=== PATIENT | female | born 1990 | race American Indian/Alaskan Native ===

== ENCOUNTER 2018-09-15 18:33 | Emergency (ER) | payer OTHER ==
[~2018-09-15] VITALS: Ht 177.8 cm; Wt 88.9 kg
--- OUTSIDE RECORDS SUMMARY | ~2018-09-15 | XMS | Clinical Summary ---
Demographics + + + | Address | [address] | | | [place] [address] | + + + | Home Phone | | + + + | Preferred Language | Unknown | + + + | Marital Status | Single | + + + | Roman Catholic Affiliation | 1041 | + + + | Race | Unknown | + + + | Ethnic Group | Unknown | + + + Author + + + | Author | [facility] | | | and [place] | + + + | Organization | [facility] | | | and [place] | + + + | Address | Unknown | + + + | Phone | Unavailable | + + + Support + + + + + | Name | Relationship | Address | Phone | + + + + + | Vinay,Jennifer | ECON | "[place]" | | | | | Unknown | | + + + + + | GarthMichaeljames | ECON | [address] | | | | | [place], | | | | | [place] [address] | | + + + + + Care Team Providers + +------+ + | Care Senior Pharmacy Technician Name | Role | Phone | + +------+ + PP | Unavailable | + +------+ + Allergies Not on File Medications Not on file Active Problems Not on file Social History + +-------+ +--------+------+ | Tobacco [...] recent travel history available. | + + Plan of Treatment + + + + + | Health Maintenance | Due Date | Last Done | Comments | + + + + + | Vaccine: | | | | | Dtap/Tdap/Td (1 - | 9 | | | | Tdap) | | | | + + + + + | Cervical Cancer | | | | | Screening (Pap) | 1 | | | + + + + + | Vaccine: Influenza | | | | | (Season Ended) | 9 | | | + + [...] | [employer] | MODA | [id number] | 07/21/19 | [phone] | | Medica | | MEDICAID HMO | HEALTH | | 18-Pre | 1 | | id | | | MDCD | | sent | | | | | | HMO [place] | | | | | | + +--------+ +--------+ +---------+--------+ | [facility] | IHS | [id number] | | | | Indemn | | [...] Person | Self | [birth year] | | [address] | | | al/Fam | | 1990 | [phone] | [place] [address] | | | dejan | | | 5 (Home) | | + +--------+ +--------+ + +
--- OUTSIDE RECORDS SUMMARY | ~2018-09-15 | XMS | Clinical Summary ---
Demographics + + + | Address | [address] | | | [place] [address] | + + + | Home Phone | | + + + | Preferred Language | Unknown | + + + | Marital Status | Single | + + + | Jew Affiliation | 1041 | + + + | Race | Unknown | + + + | Ethnic Group | Unknown | + + + Author + + + | Author | [facility] | | | and [place] | + + + | Organization | [facility] | | | and [place] [...] + + | GarthMichaeljames | ECON | [address] | | | | | [place], | | | | | [place] [address] | | + + + + + Care Team Providers + +------+ + | Care Data Base Design Analyst Name | Role | Phone | [...] | [employer] | MODA | [id number] | 07/21/19 | [phone] | | Medica | | MEDICAID HMO | HEALTH | | 18-Pre | 1 | | id | | | MDCD | | sent | | | | | | [place]MO [place] | | | | | | + +--------+ +--------+ +---------+--------+ | [facility] | IHS | [id number] | | | | Indemn | | [...] | | al/Fam | | 1990 | [phone] | [place] [address] | | | dejan | | | 5 (Home) | | + +--------+ +--------+ + +
--- OUTSIDE RECORDS SUMMARY | ~2018-09-15 | XMS | Clinical Summary ---
Demographics + + + | Address | [address] | | | [place] [address] | + + + | Home Phone | | + + + | Preferred Language | Unknown | + + + | Marital Status | Single | + + + | Anglican Affiliation | Unknown | + + + [...] Phone | + + +---------+ + | MANUEL WATSON | ECON | Unknown | | + + +---------+ + Care Team Providers + +------+ + | Care Movie Actor Name | Role | Phone | + +------+ + PP | Unavailable | + +------+ + Source Comments CHAYA is fully live on both [facility] and [facility] InPatient.[facility] Allergies No Known Allergies Current Medications Not on file Active Problems Not [...] on file | | + + + Plan of Treatment + + + + + | Health Maintenance | Due Date | Last Done | Comments | + + + + + | Influenza (Flu) | 09/01/201 | | | | vaccination (#1) | 8 | | | + + + + + Results Not on filefrom Last 3 Months"
--- OUTSIDE RECORDS SUMMARY | ~2018-09-15 | XMS | Clinical Summary ---
Demographics + + + | Address | [address] | | | [place] [address] | + + + | Home Phone | | + + + | Preferred Language | Unknown | + + + | Marital Status | Single | + + + | Shinto Affiliation | Unknown | + + + | Race | Unknown | + + + | Ethnic Group | Unknown | + + + Author + + + | Author | [email or web address] | + + + | Organization | [email or web address] | + + + | Address | Unknown | + + + | Phone | Unavailable | + + + Support + + + + + | Name | Relationship | Address | Phone | + + + + + | Jennifer Mclean | ECON | "[place]" | | | | | Unknown | | + + + + + | Starla Liang | ECON | [address] | | | | | [address], | | | | | [place] [address] | | + + + + + | Davin Vasquez | ECON | [address] | | | | | [address], | | | | | [place] [address] | | + + + + + Care Team Providers + +------+ + | Care Metal Fabricator Apprentice Name | Role | Phone | + +------+ + | Afua Marinelli PA-C | PP | | + +------+ + Allergies + [...] | | | | 15 | at [place] | | | | | | today (10/06/14) with | | | | | | no reaction. | + + + + + + Current Medications + + +-------+---------+------+------+-------+ | Prescription | Sig. | Disp. | Refills | Star | End | Statu | | | | | | t | Date | s | | | | | | Date | | | + + +-------+---------+------+------+-------+ | ibuprofen (MOTRIN) | Take 600 mg by mouth | | | 08/0 | | Activ | | 600 MG tablet | as needed. | | | 08/08 | | e | | | | | | 18 | | | + + +-------+---------+------+------+-------+ | Cholecalciferol | Take 1 tablet by | | | | | Activ | | (VITAMIN D PO) | mouth daily. | | | | | e | + + +-------+---------+------+------+-------+ Active Problems + + + | Problem | Noted Date | + + + | PFO (patent foramen ovale) | 12/26/2017 | + + + | Acute CVA (cerebrovascular accident) | 10/07/2014 | + + + | Leukocytosis, unspecified | 10/06/2014 | + + + | IV drug user | 10/06/2014 | + + + | Left flank pain | 10/06/2014 | + + + Resolved Problems + + + + | Problem | Noted | Resolved | | | Date | Date | + + + + | Fever, unspecified | 10/07/19 | | | | 15 | 5 | + + + + Immunizations + + + + | Name | Dates Previously Given | Next Due | + + + + | Pneumococcal | 10/07/2014 | | | Polysaccharide | | | | 23-valent | | | + + + + [...] | | + + +------+ + | Diabetes type II | Maternal | | | | | [...] | | + +---+---+---+ + + | Tobacco Cessation: Ready to Quit: No; Counseling Given: Yes | | Comments: got patches and gum to try to stop | + + + + +---------+ + | Alcohol Use | Drinks/We | oz/Week | Comments | | | ek | | | + + +---------+ + | No | | | | + + +---------+ + + + + | Sex Assigned at | Date Recorded | | | | + + + | Not on file | | + + + Last Filed Vital Signs + + + + | Vital Sign | Reading | Time Taken | + + + + | Blood Pressure | 108/68 | 03/01/2018 8:22 AM PDT | + + + + | Pulse | 73 | 03/01/2018 8:22 AM PDT | + + + + | Temperature | 36.8 C (98.3 F) | 10/10/2014 8:06 AM PDT | + + + + | Respiratory Rate | 16 | 10/10/2014 8:06 AM PDT | + + + + | Oxygen Saturation | 99% | 03/01/2018 8:22 AM PDT | + + + + | Inhaled Oxygen | - | - | | Concentration | | | + + + + | Weight | 85.3 kg (188 lb) | 03/01/2018 8:22 AM PDT | + + + + | Height | 177.8 cm (5' 10") | 03/01/2018 8:22 AM PDT | + + + + | Body Mass Index | 26.98 | 03/01/2018 8:22 AM PDT | + + + + Plan of Treatment +--------+---------+ + + + | Date | Type | Specialty | Care Team | Description | +--------+---------+ + + + | 01/16/ | Office | | Rufina Ulrich, | | | 2019 | Visit | | MD Fermin Rodgers | | | | | | Dr [address], | | | | | | [place] [address] | | | | | | [phone] | | | | | | | | +--------+---------+ + + + + + + + + | Health [...] | | | | (optimal intensity) | 7 | | | + + + + + | Vaccine: Influenza | | | | | (Season Ended) | 9 | | | + + + + + | Vaccine: | Completed | 10/07/2014 | | | Pneumococcal 19-64 | | | | | (PPSV23 only) Medium | | | | | Risk | | | | + + + + + Results Not on filefrom Last 3 Months Insurance + +--------+ +------+-------+ + | Payer | Benefi | Subscriber | Type | Phone | Address | | | t Plan | ID | | | | | | / | | | | | | | Group | | | | | + +--------+ +------+-------+ + | [facility] | YELLOW | [id number] | | | | | PLANS | [place] | | | | | + +--------+ +------+-------+ + | MEDICAID | [place] | [id number] | | | [address] | | | [place] | | | | [place] | | | [place] | | | | [phone] | | | LINE ERECTOR APPRENTICE | | | | | + +--------+ +------+-------+ + + +--------+ +--------+ + + | Guarantor Name | Accoun | Relation to | Date | Phone | Billing Address | | | t Type | Patient | of | | | | | | | | | | + +--------+ +--------+ + + | KAT SPENCER | Person | Self | [birth year] | Home: | [address] | | | al/Fam | | 1989 | [phone] | [place] [address] | | | [place] | | | [address] | | + +--------+ +--------+ + +
--- OUTSIDE RECORDS SUMMARY | ~2018-09-15 | XMS | Clinical Summary ---
Demographics + + + | Address | [address] | | | [place] [address] | + + + | Home Phone | | + + + | Preferred Language | Unknown | + + + | Marital Status | Single | + + + | Bahai Affiliation | Unknown | + + + [...] Team Providers + +------+ + | Care Social Director Name | Role | Phone | + +------+ + PP | Unavailable | + +------+ + Source Comments CHAYA is fully live on both [facility] and [facility]Patient.[facility] Allergies No Known Allergies Current Medications Not [...]
--- OUTSIDE RECORDS SUMMARY | ~2018-09-15 | XMS | Clinical Summary ---
Demographics + + + | Address | [address] | | | [place] [address] | + + + | Home Phone | | + + + | Preferred Language | Unknown | + + + | Marital Status | Single | + + + | Hinduism Affiliation | Unknown | + + + | Race | Unknown | + + + | Ethnic Group | Unknown | + + + Author + + + | Author | [facility] | + + + | Organization | [facility] | + + + | Address [...] + | Starla Liang | ECON | [address] | | | | | [address], | | | | | [place] [address] | | + + + + + | Davin Vasquez | ECON | [address] | | | | | [address], | | | | | [place] [address] | | + + + + + Care Team Providers + +------+ + | Care Gymnastics Coach Name | Role | Phone | + [...] | | | | 15 | at [place] | | | | | | today [...] | | | | | | [place] [address] | | | | | | [phone] | | | | | | | [...] | | + +--------+ +------+-------+ + | [facility] | YELLOW | [id number] | | | | | PLANS | [place] | | | | | + +--------+ +------+-------+ + | MEDICAID | [place] | [id number] | | | [address] | | | N | | | | [place] | | | [place] | | | | [phone] | | | FIREARMS MODEL MAKER | | | | | + +--------+ [...] | | al/Fam | | 1989 | [phone] | [place] [address] | | | [place] | | | [address] | | + +--------+ +--------+ + +
[~2018-09-15 18:33] MED LIST: BACTRIM DS TAB1 EACH PO; CAFFEINE PO; CIPRO500 MG PO; DIFLUCAN150 MG PO; IBUPROFEN800 MG PO; NORCO 5-325 TA1 EACH PO; PEPTO-BISM262 MG/15 PO; VITAMIN D5000 UNI1 PO; ZOFRAN4 MG PO
== END 2018-09-15 20:38 | disposition home or self-care (01) ==
LOC: ED 18:33
DX: Z34.01 Encounter for supervision of normal first pregnancy, first trimester (principal); Z86.73 Personal history of transient ischemic attack (TIA), and cerebral infarction without residual deficits; Z87.891 Personal history of nicotine dependence; Z88.0 Allergy status to penicillin; Z88.8 Allergy status to other drugs, medicaments and biological substances
CPT/HCPCS: 81001; 84702; 84703; 85025; 99284

== ENCOUNTER 2019-10-25 07:37 | Emergency (ER) | payer OTHER ==
[~2019-10-25] VITALS: Ht 177.8 cm; Wt 88.5 kg
--- OUTSIDE RECORDS SUMMARY | ~2019-10-25 | XMS | Clinical Summary ---
Demographics + + + | Address | [address] | | | [place] [address] | + + + | Home Phone | | + + + | Preferred Language | Unknown | + + + | Marital Status | Single | + + + | Pentecostalism Affiliation | 1041 | + + + | Race | Unknown | + + + | Ethnic Group | Unknown | + + + Author + + + | Author | [facility] | | | and [place] | + + + | Organization | [facility] | | | and [place] | + + + | Address | Unknown | + + + | Phone | Unavailable | + + + Support + + +---------+ + | Name | Relationship | Address | Phone | + + +---------+ + | Jennifer Mclean | ECON | "[place]" | | | | | Unknown | | + + +---------+ + Care Team Providers + +------+ + | Care Entry Level Project Coordinator Name | Role | Phone | + +------+ + | Afua Marinelli PA-C | PCP | | + +------+ + Allergies + + + + + + | Active Allergy | Reactions | Severity | Noted | Comments | | | | | Date | | + + + + + + | Methylergonovine | Hives | High | 10/07/19 | | | Maleate | | | 15 | | + + + + + + | Penicillins | Hives | High | 10/07/19 | Received Rocephin | | | | | 15 | at [place] | | | | | | today (10/06/14) with | | | | | | no reaction. | + + + + + + Medications + + + +---------+------+------+-------+ | Medication | Sig | Dispensed | Refills | Star | End | Statu | | | | | | t | Date | s | | | | | | Date | | | + + + +---------+------+------+-------+ | Multiple | Take by mouth | | 0 | | | Activ | | Vitamins-Minerals | Daily. | | | | | e | | (MULTIVITAMIN ADULT) | | | | | | | | TABS | | | | | | | + + + +---------+------+------+-------+ | Probiotic Product | Take by mouth | | 0 | | | Activ | | (PROBIOTIC-10) CHEW | Daily. | | | | | e | + + + +---------+------+------+-------+ | aspirin 81 mg | Take 1 tablet by | | 0 | 12/21 | | Activ | | chewable tablet | mouth Daily. | | | 01/08 | | e | | | | | | 19 | | | + + + +---------+------+------+-------+ Active Problems + + + | Problem | Noted Date | + + + | PFO (patent foramen ovale) | 12/26/2017 | + + + | Acute CVA (cerebrovascular accident) | 10/07/2014 | + + + Resolved Problems + + + + | Problem | Noted | Resolved | | | Date | Date | + + + + | Leukocytosis, unspecified | 10/07/19 | | | | 15 | 9 | + + + + | IV drug user | 10/07/19 | | | | 15 | 9 | + + + + | Left flank pain | 10/07/19 | | | | 15 | 9 | + + + + Immunizations + + + + | Name | Administration Dates | Next Due | + + + + | PNEUMOCOCCAL | 10/07/2014 | | | POLYSACCHARIDE | | | | 23-VALENT (PPSV23) | | | + + + + Family History + + +------+ + | Medical History | Relation | Name | Comments | + + +------+ + | High cholesterol | Maternal | | | | | Grandfath | | | | | er | | | + + +------+ + | Kidney disease | Maternal | | | | | Grandfath | | | | | er | | | + + +------+ + | Stroke | Maternal | | | | | Grandfath | | | | | er | | | + + +------+ + | Diabetes, NIDDM | Maternal | | | | | Grandmoth | | | | | er | | | + + +------+ + | Heart disease | Maternal | | | | | Grandmoth | | | | | er | | | + + +------+ + | Stroke | Maternal | | | | | Grandmoth | | | | | er | | | + + +------+ + | Alcohol abuse | Mother | | | + + +------+ + + +------+--------+ + | Relation | Name | Status | Comments | + +------+--------+ + | Maternal Grandfather | | | | + +------+--------+ + | Maternal Grandfather | | | | + +------+--------+ + | Maternal Grandmother | | | | + +------+--------+ + | Maternal Grandmother | | | | + +------+--------+ + | Mother | | | | + +------+--------+ + | Mother | | | | + +------+--------+ + Social History + +-------+ +--------+------+ | Tobacco Use | Types | Packs/Day | Years | Date | | | | | Used | | + +-------+ +--------+------+ | Former Smoker | | 0.5 | | | + +-------+ +--------+------+ + +---+---+---+ | Smokeless Tobacco: | | | | | Never Used | | | | + +---+---+---+ + + | Comments: got patches and gum to try to stop | + + + + +---------+ + | Alcohol Use | Drinks/Week | oz/Week | Comments | + + +---------+ + | Not Currently | | | | + + +---------+ + + + + | Sex Assigned at | Date Recorded | | | | + + + | Not on file | | + + + + + + + | Job Start Date | Occupation | Industry | + + + + | Not on file | Not on file | Not on file | + + + + + + + + | Travel History | Travel Start | Travel End | + + + + + + | No recent travel history available. | + + Last Filed Vital Signs + + + + + | Vital Sign | Reading | Time Taken | Comments | + + + + + | Blood Pressure | 104/58 | 01/16/2019 1:42 PM | | | | | PDT | | + + + + + | Pulse | 66 | 01/16/2019 1:42 PM | | | | | PDT | | + + + + + | Temperature | - | - | | + + + + + | Respiratory Rate | - | - | | + + + + + | Oxygen Saturation | 98% | 01/16/2019 1:42 PM | | | | | PDT | | + + + + + | Inhaled Oxygen | - | - | | | Concentration | | | | + + + + + | Weight | 85.2 kg (187 lb 12.8 | 01/16/2019 1:42 PM | | | | oz) | PDT | | + + + + + | Height | 175.3 cm (5' 9") | 01/16/2019 1:42 PM | | | | | PDT | | + + + + + | Body Mass Index | 27.73 | 01/16/2019 1:42 PM | | | | | PDT | | + + + + + Plan of Treatment + + + + + | Health Maintenance | Due Date | Last Done | Comments | + + + + + | Vaccine: | | | | | Dtap/Tdap/Td (1 - | 1 | | | | Tdap) | | | | + + + + + | Cervical Cancer | | | | | Screening (Pap) | 1 | | | + + + + + | Statin Therapy | | | | | (optimal intensity) | 9 | | | + + + + + | Vaccine: Influenza | | | | | (Season Ended) | 0 | | | + + + + + Results Not on filefrom Last 3 Months Insurance + +--------+ +--------+ +---------+--------+ | Payer | Benefi | Subscriber | Effect | Phone | Address | Type | | | t Plan | ID | tasia | | | | | | / | | Dates | | | | | | Group | | | | | | + +--------+ +--------+ +---------+--------+ | [employer] | MODA | [id number] | 07/21/19 | [phone] | | Medica | | MEDICAID HMO | HEALTH | | 18-Pre | 1 | | id | | | MDCD | | sent | | | | | | [place] | | | | | | + +--------+ +--------+ +---------+--------+ | HEALTH | IHS | [id number] | | | | Indemn | | SERVICE | YELLOW | | 019-Pr | | | ity | | | [place] | | esent | | | | + +--------+ +--------+ +---------+--------+ | [employer] | [employer] | [id number] | 12/26/19 | [phone] | | Medica | | MEDICAID HMO | HEALTH | | 19-Pre | 1 | | id | | | MDCD | | sent | | | | | | [place] | | | | | | + +--------+ +--------+ +---------+--------+ | [employer] [facility] | IHS | [id number] | | | | Indemn | | SERVICE | YELLOW | | 015-Pr | | | ity | | | [place]WK | | esent | | | | + +--------+ +--------+ +---------+--------+ + +--------+ +--------+ + + | Guarantor Name | Accoun | Relation to | Date | Phone | Billing Address | | | t Type | Patient | of | | | | | | | | | | + +--------+ +--------+ + + | Chiquis Spencer | Person | Self [birth year] | | [address] | | | al/Fam | | 1989 | [phone] | [place] [address] | | | dejan | | | 5 (Home) | | + +--------+ +--------+ + + | Chiquis Spencer | Person | Self [birth year] | | [address] | | | al/Fam | | 1989 | [phone] | [place] [address] | | | dejan | | | 3 (Home) | | + +--------+ +--------+ + + Advance Directives + + + + + | Type | Date Recorded | Patient | Explanation | | | | Manager Nuclear | | + + + + + | Power of | | | | | Kitchen Designer | | | | + + + + + | Advance | | | | | Directive | | | | + + + + +
--- OUTSIDE RECORDS SUMMARY | ~2019-10-25 | XMS | Encounter Summary ---
Demographics + + + | Address | [address] | | | [place] [address] | + + + | Home Phone | | + + + | Preferred Language | Unknown | + + + | Marital Status | Single | + + + | Yarsani Affiliation | Unknown | + + + | Race | Unknown | + + + | Ethnic Group | Not or | + + + Author + + + | Organization | Unknown | + + + | Address | Unknown | + + + | Phone | Unavailable | + + + Support + + +---------+ + | Name | Relationship | Address | Phone | + + +---------+ + | Danielle Ewing | ECON | Unknown | | + + +---------+ + Care Team Providers + +------+ + | Care Timber Cutter Name | Role | Phone | + +------+ + PCP | Unavailable | + +------+ + Encounter Details +--------+ + + + + | Date | Type | Department | Care Team | Description | +--------+ + + + + | 04/10/ | Transcribed | | Dictation, Other | Transcribed | | 2001 | | | | | +--------+ + + + + Social History + +-------+ +--------+------+ | Tobacco Use | Types | Packs/Day | Years | Date | | | | | Used | | + +-------+ +--------+------+ | Never Assessed | | | | | + +-------+ +--------+------+ + + + | Sex Assigned at [...] recent travel history available. | + + documented as of this encounter Progress Notes Interface, Quality Analyst/Technical Writer In - 02/19/2006 1:01 AM [place] [facility] [place] [address] [place], [place] [address] or April 10, 2001 Panfilo Reece M.D. [address] [place] [address] RE: CHIQUIS SPENCER MR #: [id number] Dear Dr. Reece: It was our pleasure to visit with Chiquis and her aunt in clinic today. She is a 10-1/2-year-old female referred for evaluation of recurrent lower urinary tract infections. These apparently began 2 to 3 years ago. They were documented by voided specimens. However, the documentation we received failed to disclose any infections that have greater than 10 to power of 5 organisms. Her last culture from May of this past year demonstrated 10,000 E. coli. The patient does, however, experienced periodic episodes of dysuria, urgency and frequency, and enuresis. She has had some infrequent soiling of her underwear with stool. She apparently has had some infections in the past that the patient states were associated with blood in her urine and associated with lower abdominal pain and discomfort. The patient has undergone a prior ultrasound examination after urinary tract. There was attempts made at performing a voiding cystourethrogram. However, the catheter was unable to be inserted at the [facility]. Because of these difficulties, she was referred here for further evaluation. The patient's family history is a little bit difficult to determine because her parents are not here. Her review of systems is significant for prior history of pharyngitis, constipation, and a broken right arm. There is a questionable history of seizures. The patient underwent a physical examination today. The examination of her abdomen is unremarkable without masses. There is some tenderness. Examination of the perineum demonstrates early pubertal development. She does have labial adhesions. This would explain her difficulty with catheterization. After obtaining appropriate consent, these adhesions were lysed in our clinic. I reviewed the patient's voiding cystourethrogram and her ultrasound. These demonstrated normal anatomy of the bladder and upper urinary tract. However, the patient because of the labial adhesions retains urine in the vagina. This leaks out in the upright position. ASSESSMENT AND RECOMMENDATIONS: It appears that many of Chiquis's symptoms may be related to her labial adhesions. With the resolution of these can continue treatment with estrogen cream to this area twice a day for the next few weeks. I suspect many of these symptoms will fanny. Should she have continued documented urinary tract infections of greater than 3 in a 6-month period, then we will put her on prophylactic antibiotics. However, given the normalcy of her upper urinary tract and lower urinary tract, I doubt this will be necessary. Thank you to the patient's referral. Sincerely, Carl Fletcher M.D., F.A.A.P. / [id number] / [id number] / [id number] / [id number] signed by Interface, Quality Analyst/Technical Writer In at 02/19/2006 1:01 AM PDTdoc umented in this encounter Plan of Treatment Not on filedocumented as of this encounter Visit Diagnoses Not on filedocumented in this encounter"
--- OUTSIDE RECORDS SUMMARY | ~2019-10-25 | XMS | Clinical Summary ---
Demographics + + + | Address | [address] | | | [place] [address] | + + + | Home Phone | | + + + | Preferred Language | Unknown | + + + | Marital Status | Single | + + + | [employer]ar[employer] Affiliation | 1041 | + + + | Race | Unknown | + + + | Ethnic Group | Unknown | + + + Author + + + | Author | [facility] | | | and [place] | + + + | Organization | [facility] | | | [...] Team Providers + +------+ + | Care Outcomes Manager Name | Role | Phone | + [...] | | | | 15 | at [place] | | | | | | today [...] | [employer] | [employer] | [id number] | 07/21/19 | [phone] | | Medica | | MEDICAID HMO | HEALTH | | 18-Pre | 1 | | id | | | MDCD | | sent | | | | | | [place]MO [place] | | | | | | + +--------+ +--------+ +---------+--------+ | HEALTH | [employer] | [id number] | | | | Indemn | | SERVICE | YELLOW | | 019-Pr | | | ity | | | HAWK | | esent | | | | + +--------+ +--------+ +---------+--------+ | [employer] | [employer] | [id number] | 12/26/19 | [phone] | | Medica | | MEDICAID HMO | HEALTH | | 19-Pre | 1 | | id | | | MDCD | | sent | | | | | | [place] | | | | | | + +--------+ +--------+ +---------+--------+ | [facility] | [facility] | [id number] | | | | Indemn | | [...] | | al/Fam | | 1989 | [phone] | [place] [address] | | | dejan | | | 5 (Home) | | + +--------+ +--------+ + + | Chiquis Spencer | Person | Self | [birth year] | [address] | | | al/Fam | | 1989 | [phone] | [place] [address] | | | dejan | | | 3 (Home) | | + +--------+ +--------+ + + Advance Directives + + + + + | Type | Date Recorded | Patient | Explanation | | | | Extractor Loader And Unloader | | + + + + + | Power of | | | | | Coding Advisor | | | | + + + + + | Advance | | | | | Directive | | | | + + + + +
--- OUTSIDE RECORDS SUMMARY | ~2019-10-25 | XMS | Encounter Summary ---
Demographics + + + | Address | [address] | | | [place] [address] | + + + | Home Phone | | + + + | Preferred Language | Unknown | + + + | Marital Status | Single | + + + | [employer] Affiliation | 1041 | + + + | Race | Unknown | + + + | Ethnic Group | Unknown | + + + Author + + + | Author | [facility] | | | and [place] | + + + | Organization | [facility] | | | [...] Team Providers + +------+ + | Care Mangle Catcher Name | Role | Phone | + +------+ + PCP | Unavailable | + +------+ + Encounter Details +--------+ + + + + | Date | Type | Department | Care Team | Description | +--------+ + + + + | 10/06/ | Hospital | [facility] | Arnold Workman | Leukocytosis, | | 2015 - | Encounter | [facility] | Blaine Mckay MD [address] | | | | CL[address]ICAL DECISION | [address] | | | 10/10/ | | [address] | [place] [address] | | | 2015 | | [facility] [place] | [phone] | | | | | [id number] | | | | | | [phone] | | | +--------+ + + + [...] + + documented as of this encounter Discharge Summaries Marialuisa Brown MD - 10/10/2014 8:38 AM PDT Discharge Summaries by Marialuisa Brown MD at 10/10/14837 Author: Marialuisa Brown MD Service: (none) Author Type: Physician Filed: 10/10/14 1450 Date of Service: 10/10/14837 Status: Signed Business Applications Analyst: Marialuisa Brown MD (Physician) Related Notes: Original Note by Marialuisa Brown MD (Physician) filed at 10/10/14 0842 [facility] Service: Hospitalist Physician Discharge Summary Patient ID: Kat Spencer 1990 24 y.o. Admit date: 10/06/2014 Discharge date: 10/10/2014 Admitting Physician: Arnold Workman MD Discharge Physician: Marialuisa Brown MD Consultants: Treatment Team: Consulting Physician: Davin Purcell DO Consulting Physician: Kolby Scott MD Admitting Provider: Arnold Workman MD Primary Discharge Diagnoses: Leukocytosis with fever. Fevers resolved etiology unclear. Secondary Discharge Diagnoses: IV drug user Left flank pain Acute CVA (cerebrovascular accident) (HCC) HPI and Hospital Course: 24-year-old female with a history of benign seizures, history of drug abuse about 4 years a go, presented to [facility] with fever, leukocytosis, and tachycardia. There was a concern for endocarditis, and patient has a history of IV drug abuse and had a single relap se recently in the last 4 years, was transferred to [facility] and infec tious disease was consulted. Patient also had a fall and complained of CVA tenderness. HOSPITAL COURSE Patient admitted with fever and leukocytosis. She was started on Rocephin and vancomycin. I nfectious disease consult was obtained, and blood cultures remained negative. Patient also h ad stool for Clostridium difficile which was negative. Her leukocytosis gradually improved a nd her fever resolved. The patient also had complaint of transient right eye blindness. MRI was done, which showed acute CVA. Neurology consult was obtained. Hypercoagulable workup is pending. TSH and B12 w ithin normal limits. Dr. Scott evaluated the patient. She was started on aspirin and high-do se Lipitor for 3 days. Lipid profile was done, and she will be discharged home on aspirin an d Lipitor. Patient also had a 2D echocardiogram and subsequently BIJAN which showed a small PFO. She had Doppler ultrasound which showed no DVT. Patient had recurrent symptoms of left eye blindnes s, and a repeat MRI was done which did not show any acute CVA. She also had CTA of the neck which showed no carotid stenosis, however there was possibility of a thyroid nodule. I have not discussed this with the patient; she will follow up outpatient for that. Patient's fever has resolved. She continues to have mild leukocytosis and I discussed this with Dr. Robbins. She will follow up with infectious disease next week. Also she will follo w up with Dr. Scott as an outpatient. Patient continues to have some left flank pain, and CT scan showed possible pyelonephritis, also possibly related to her fall and contusion. She will be discharged home on Omnicef. The plan was discussed in detail with the patient. All questions have been answered. All da ta was reviewed with her. Past Medical History: Past Medical History Diagnosis Date Seizures as an IV drug user 10/06/2014 Left flank pain 10/06/2014 Past Surgical History Procedure Laterality Date Tonsillectomy Dilation and curettage of uterus Discharged Condition: Stable for discharge as stated above. Significant Diagnostic Studies: Cta Neck With Iv Contrast 10/09/2014 1. No evidence of carotid arterial stenosis. 2. Cannot exclude a left-sided thyroid nodule. Consider further evaluation with a dedicated thyroid ultrasound. Electronic ally signed by Otoniel Macdonald MD on 10/09/2014 4:34 PM Mra Head Without Contrast 10/08/2014 1. Normal MRA of the cerebral arterial system. No stenosis, occlusion, aneury sm or vasculitis noted. 2. Please note that the splenial branches of the posterior cerebral arteries would be too small to be resolved at 1.5 Jennie. Mri Brain Without Contrast 10/09/2014 Dramatic improvement of the appearance of the DWI signal changes previously see n in the splenium of the corpus callosum. This may represent pseudonormalization of signal intensity due to the decreased contribution by the ADC component on the DWI sequence which t ypically occurs 3 days post infarct. Alternatively, the relatively rapid loss of the DWI si gnal component may indicate that the area involved was acutely ischemic but not completely i nfarcted. This would explain why the FLAIR and T2 sequences do not show significant increas ed signal at this point. Differential diagnosis would include focal status epilepticus invo lving the splenium of the corpus callosum which has now resolved. Mri Brain Without Contrast 10/07/2014 Findings were reported to Dr. Davin Purcell by telephone at 10/07/2014 3:15 PM. C linically, isolated corpus callosum infarcts are associated with neuropsychiatric symptoms, mainly interhemispheric disconnection syndromes. Patients may experience gait disorders, a praxia, agraphia, tactile anomia, alien hand syndrome. Consultation with neurology is rec ommended. 10/07/2014 1. 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 This would be due to occlusion of the splenial branch of one of the posterior cerebral arteries. 2. No other infarcts are identified. 3. Otherwise normal MRI examination of the brain. El ectronically signed by Eh Vences DO on 10/07/2014 3:[address] Abdomen Pelvis With Iv Contrast 10/07/2014 1. Findings suggest pyelonephritis of the left kidney lower pole. Correlate cl inically. 2. Prominent periaortic lymph nodes, probably reactive. 3. Multi-follicular ovar ies and minimal free fluid in the pelvis. Ultrasound Carotid Bilateral 10/07/2014 1. There is 50-69% stenosis of the right internal carotid artery distally. 2. No other areas of hemodynamically significant stenosis. Ultrasound Lower Extremity Venous Doppler Bilateral 10/09/2014 1. No evidence of lower extremity deep vein thrombosis. Echo Cardiac Adult Complete 10/08/2014 1. Overall left ventricular systolic function is mildly impaired with, an EF be tween 45 - 50 %. 2. no obvious veg. Echo Bijan 10/08/2014 1. No vegetation visualized. 2. Evidence for very small patent foramen ovale pr esent by microcavitation study. Discharge Vitals: Filed Vitals: 10/09/14 1918 10/09/14 2324 10/10/14 0358 10/10/14 0806 BP: 134/82 120/58 114/62 114/62 Pulse: 68 82 80 93 Temp: 98.2 F (36.8 C) 97.6 F (36.4 C) 98.2 F (36.8 C) 98.3 F (36.8 C) TempSrc: Oral Oral Oral Oral Resp: 18 16 16 16 Height: Weight: 81.4 kg (179 lb 7.3 oz) SpO2: 98% 98% 96% 97% Discharge Exam: General: Well nourished. Psych: Alert and oriented x 3. Calm, cooperative. Cardiovascular: Regular rate and rhythm, no murmurs, no thrills. Normal PMI. Respiratory: Clear to auscultation, no wheezing or crackles, breathing non labored. Gastrointestinal: Soft, tenderness present in the suprapubic area, non-distended, positive bowel sounds. No HSM. Musculoskeletal: No edema in bilateral lower extremities. No joint swelling. Minimal left flank tenderness present Skin: Warm and dry, no rashes. Neck: No JVD, Trachea midline. Neurological: Non focal. Motor grossly intact. LABS: Recent Labs Lab 10/10/14 0503 10/09/14 0610/08/14 0510 WBC 13.14* 12.95* 17.41* RBC 3.84 3.66* 3.66* HGB 11.6 11.2* 10.9* HCT 34.5 33.0* 32.8* MCV 89.9 90.2 89.6 MCH 30.1 30.7 29.9 MCHC 33.5 34.0 33.3 RDW 38.9 39.4 39.8 PLT 656* 495* 420* MPV 7.5 7.4 7.9 DIFFTYPE MANUAL MANUAL AUTOMATED Recent Labs Lab 10/10/14 0503 10/09/14 0627 10/08/14 0510 10/07/14 0537 NA 137 140 135 134* K 3.8 3.5 3.5 2.9* CL 102 104 102 102 CO2 29 28 26 24 BUN 8 5* 4* 3* CREATININE 0.59 0.63 0.61 0.66 PROT -- -- -- 6.5 BILITOT -- -- -- 0.4 ALT -- -- -- 48 AST -- -- -- 56* GLUF 99 115* 103* 138* Recent Labs Lab 10/07/14 0537 PHOS 2.8 Recent Labs Lab 10/08/14 0510 10/07/14 0537 MG 1.6* 1.7 Invalid input(s): ABG Disposition: Home Follow [place]: [place] [address] [facility] [address] Schedule an appointment as soon as possible for a visit in 2 days Outpatient ultrasound of the thyroid Kolby Scott MD [address] [place] [id number] Schedule an appointment as soon as possible for a visit in 2 weeks Davin PurcellDO [address] [facility] [address] Schedule an appointment as soon as possible for a visit in 1 week [facility] on 10/17/2014 Medication List START taking these medications aspirin 81 MG EC tablet QTY: 30 tablet Refills: 0 Take 1 tablet by mouth daily with breakfast. atorvastatin 10 MG tablet QTY: 30 tablet Refills: 0 Commonly known as: LIPITOR Take 1 tablet by mouth nightly. cefdinir 300 MG capsule QTY: 28 capsule Refills: 0 Commonly known as: OMNICEF Take 1 capsule by mouth every 12 (twelve) hours. oxyCODONE-acetaminophen 5-325 MG per tablet QTY: 20 tablet Refills: 0 Commonly known as: PERCOCET Take 1 tablet by mouth every 8 (eight) hours as needed. 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 You may get the following medications from any pharmacy - aspirin 81 MG EC tablet - atorvastatin 10 MG tablet - cefdinir 300 MG capsule - oxyCODONE-acetaminophen 5-325 MG per tablet Marialuisa Brown MD 10/10/2014 8:38 AM Discharge took 40 minutes, to include final examination, discussion of admission, and prep aration of prescriptions, instructions for ongoing care, follow up and dictation of summary. This entry has been created using [employer] Speech Recognition software and [employer]. The entry has been reviewed and there may still exist sound alike word errors. documented in th is encounter Progress Notes Conversion Transaction, Provider Unknown - 10/10/2014 10:20 AM PDTFormatting of this note m ight be different from the original. Nurse Progress Note by Jeni Ceja RN at 10/10/14 1020 Author: Jeni Ceja RN Service: (none) Author Type: Registered Nurse Filed: 10/10/14 1042 Date of Service: 10/10/14 1020 Status: Signed Business Applications Analyst: Jeni Ceja RN (Registered Nurse) Discharged ambulatory to boyfriend and mother. Home per private car.Jeni Ceja 10/10/2014 onver venecia Transaction, Provider Unknown - 10/10/2014 9:31 AM PDT Nurse Progress Note by Jeni Ceja RN at 10/10/14930 Author: Jeni Ceja RN Service: (none) Author Type: Registered Nurse Filed: 10/10/1432 Date of Service: 10/10/14930 Status: Signed Business Applications Analyst: Jeni Ceja RN (Registered Nurse) Discharge instructions explained to patient and she she states understanding.Jeni Ceja onver venecia Transaction, Provider Unknown - 10/10/2014 5:36 AM PDT Nurse Progress Note by Jacinta Arshad RN at 10/10/14535 Author: Jacinta Arshad RN Service: (none) Author Type: Registered Nurse Filed: 10/10/1439 Date of Service: 10/10/14535 Status: Signed Business Applications Analyst: Jacinta Arshad RN (Registered Nurse) Patient resting in bed with family at bedside. Vital signs have been stable. She has been afebrile. No complaints of nausea or vomiting. Patient medicated for headache pain x 1 wit h good relief. Visual symptoms still resolved. No neuro deficits noted. Hourly rounding d one and uneventful. Patient needs addressed. Will discuss plan of care with oncoming RN. Jacinta Arshad RN 10/10/2014 5:39 AM onver venecia Transaction, Provider Unknown - 10/09/2014 6:19 PM PDT Nurse Progress Note by Jeni Ceja RN at 10/09/141818 Author: Jeni Ceja RN Service: (none) Author Type: Registered Nurse Filed: 10/09/14 1821 Date of Service: 10/09/141818 Status: Signed Business Applications Analyst: Jeni Ceja RN (Registered Nurse) Visual symptoms have completely resolved. No further problems. Friend at bedside.Jeni correa 10/09/2014 onver venecia Transaction, Provider Unknown - 10/09/2014 4:45 PM PDT Therapy Progress Note by Sabi Currie PT at 10/09/14 1645 Author: Sabi Currie PT Service: (none) Author Type: Physical Therapist Filed: 10/09/14 1723 Date of Service: 10/09/14 1645 Status: Signed Business Applications Analyst: Sabi Currie PT (Physical Therapist) 10/09/14 1645 PT Last Visit PT Received On 10/09/14 Requires PT Follow Up No Other Comments Comments Pt seen for stroke education. Provided w/stroke education packet and focused educ ation on changes caused by stroke, risk factors for stroke and strategies to prevent another stroke. Pt states understanding for education and agrees to contact RN/PT with any additio nal questions. Cognition Overall Cognitive Status WFL Orientation Level Oriented Modalities Other Therapy see comments for education onver venecia Transaction, Provider Unknown - 10/09/2014 3:05 PM PDT Nurse Progress Note by Jeni Ceja RN at 10/09/14 1505 Author: Jeni Ceja RN Service: (none) Author Type: Registered Nurse Filed: 10/09/14 1514 Date of Service: 10/09/14 1505 Status: Signed Business Applications Analyst: Jeni Ceja RN (Registered Nurse) Patient states that while she was up walking, her vision became blurred and the top of her head started hurting. All other neuro signs are negative. Dr. Brown notified and MRI was ordered.Jeni Ceja 10/09/2014 Marialuisa Gates MD - 10/09/2014 1:02 PM PDTFormatting of this note might be different from stella salas original. Progress Notes by Marialuisa Brown MD at 10/09/14 1302 Author: Marialuisa Brown MD Service: (none) Author Type: Physician Filed: 10/09/14 4660 Date of Service: 10/09/14 1302 Status: Signed Business Applications Analyst: Marialuisa Brown MD (Physician) [facility] Service: Hospitalist Progress Note Hospital Day: LOS: 3 days SUBJECTIVE Patient Summary: 24-year-old female with a history of IV drug abuse admitted with fe cate and left flank pain. Patient had a fall on her side and subsequently developed left fla nk pain. Patient has been started on Rocephin and vancomycin. CT scan shows possible left p yelonephritis. Infectious disease consulted. 2-D echocardiogram shows no vegetation. MRI of the brain shows acute CVA. Neurology consulted . BIJAN showed no vegetation. BIJAN showed a very small PFO.She been transitioned to Omnicef. Events Overnight: Patient still complains of some flank pain. The pain is controlled at present Scheduled Medications aspirin 81 mg Oral Daily with breakfast [START ON 10/10/2014] atorvastatin 10 mg Oral Nightly atorvastatin 80 mg Oral Nightly cefdinir 300 mg Oral Q12H famotidine 20 mg Oral BID Or famotidine 20 mg Intravenous BID fluconazole 50 mg Oral Once heparin (porcine) 5000 unit/0.5mL 5,000 Units Subcutaneous Q8H Continuous Infusions PRN Medications acetaminophen OR acetaminophen, diphenhydrAMINE, HYDROmorphone OR HYDROmorphone, ma gnesium sulfate OR magnesium sulfate OR magnesium sulfate, ondansetron OR ondans etron, oxyCODONE-acetaminophen OR oxyCODONE-acetaminophen, polyethylene glycol, potassiu m chloride OR potassium chloride OR potassium chloride OR potassium chloride O R potassium chloride OR potassium chloride, sodium chloride 0.9 %, zolpidem OBJECTIVE Vital Signs: BP 119/63 | Pulse 79 | Temp(Src) 97.9 F (36.6 C) (Oral) | Resp 20 | Ht 1.778 m (5' 10") | Wt 81 kg (178 lb 9.2 oz) | BMI 25.62 kg/m2 | SpO2 100% | ? No Patient Vitals for the past 24 hrs: BP Temp Temp src Pulse Resp SpO2 10/09/14 0900 119/63 mmHg 97.9 F (36.6 C) Oral 79 20 100 % 10/09/14 0306 113/63 mmHg 98 F (36.7 C) Oral 66 16 98 % 10/08/14 2304 120/64 mmHg 98.2 F (36.8 C) Oral 88 16 98 % 10/08/14 2024 128/65 mmHg 98.9 F (37.2 C) Oral 90 16 99 % 10/08/14 1808 129/78 mmHg - - 85 - 98 % 10/08/14 1724 125/76 mmHg - - 93 - 100 % 10/08/14 1718 127/74 mmHg - - 94 16 100 % 10/08/14 1710 133/72 mmHg - - 100 16 100 % 10/08/14 1700 126/78 mmHg - - 100 18 100 % 10/08/14 1655 112/65 mmHg - - 100 16 99 % 10/08/14 1650 125/73 mmHg - - 107 16 98 % 10/08/14 1645 118/79 mmHg - - 114 18 98 % 10/08/14 1630 132/83 mmHg - - 82 18 98 % 10/08/14 1620 133/85 mmHg - - 90 18 96 % 10/08/14 1521 135/71 mmHg 98.8 F (37.1 C) Oral 95 18 98 % Intake/Output Summary (Last 24 hours) at 10/09/14 1304 Last data filed at 10/09/14 0952 Gross per 24 hour Intake 2984 ml Output 4500 ml Net -1516 ml Physical Exam: Constitutional: Alert and oriented to person, place, and time. Appears well-developed and w ell-nourished. HEENT: Neck supple, no JVD, non icteric sclera. Cardiovascular: Normal rate, regular rhythm, normal heart sounds with S1 and S2, Exam re veals no gallop and no friction rub. No murmur heard. No S3, No S4 Pulmonary/Chest: Effort normal and breath sounds normal. No stridor. No respiratory distres s. no wheezes. no rales. exhibits no tenderness. Abdominal: Soft. Bowel sounds are normal. exhibits no distension and no mass. There is Mini mal Tenderness left flank and suprapubic area. There is no rebound and no guarding. Extremeties/Musculoskeletal: Normal range of motion.exhibits no tenderness. exhibits no ed michael. Neurological: Alert and oriented to person, place, and time. Strength 5-5 all extremities . Skin: Skin is warm and dry. Psychiatric: Has a normal mood and affect. DATA Recent Labs Lab 10/09/1462610/08/1450910/07/14 0537 WBC 12.95* 17.41* 19.52* RBC 3.66* 3.66* 3.82 HGB 11.2* 10.9* 11.5 HCT 33.0* 32.8* 34.3 MCV 90.2 89.6 89.8 MCH 30.7 29.9 30.2 MCHC 34.0 33.3 33.7 RDW 39.4 39.8 38.5 PLT 495* 420* 380 MPV 7.4 7.9 8.1 DIFFTYPE MANUAL AUTOMATED MANUAL Recent Labs Lab 10/09/1462610/08/1450910/07/14 0537 NA 140 135 134* K 3.5 3.5 2.9* CL 104 102 102 CO2 28 26 24 BUN 5* 4* 3* CREATININE 0.63 0.61 0.66 PROT -- -- 6.5 BILITOT -- -- 0.4 ALT -- -- 48 AST -- -- 56* GLUF 115* 103* 138* Recent Labs Lab 10/07/14 0537 PHOS 2.8 Recent Labs Lab 10/08/1450910/07/14 0537 MG 1.6* 1.7 Invalid input(s): ABG No results for input(s): APTT, INR, PTT in the last 168 hours. carotid ultrasound Impression: 1. There is 50-69% stenosis of the right internal carotid artery distally. 2. No other areas of hemodynamically significant stenosis. PROBLEM LIST Principal Problem: Leukocytosis, unspecified Active Problems: IV drug user Left flank pain Acute CVA (cerebrovascular accident) (HCC) ASSESSMENT & PLAN 1. Fever with leukocytosis .Fever has resolved. white count is trending down. Patient rem ains afebrile. BIJAN shows no vegetation. Patient transitioned to Omnicef.Blood cultures rem ain negative and stool is negative for C. difficile MRSA is negative 2. Acute CVA. continue aspirin and high-dose Lipitor. Hypercoagulable workup pending and lipid profile results noted. BIJAN shows a small PFO discussed with neurology recommended ult rasound lower extremities to rule out DVT.TSH is within normal limits. Ultrasound shows no DVT. Carotid ultrasound shows 50-69% stenosis right internal carotid artery, CTA pending 3. History of IV drug abuse. Urine Tox screen shows only opiates.. [place] and had a single relapse recently. 4. DVT prophylaxis continue heparin 5. Flank pain continue oxycodone and Dilaudid when necessary. 6. Symptoms of Yeast infection patient received a dose of Diflucan today The plan has explained in detail to the patient , all questions were answered.All data was reviewed. Disposition: Pending course Code Status: Full Code Marialuisa Brown MD 10/09/2014 1:04 PM This entry has been created using [employer] Speech Recognition software and [employer]. The entry has been reviewed and there may still exist sound alike word errors. Cleo, Heath Lugo O - 10/09/2014 11:18 AM PDT Progress Notes by Davin Purcell DO at 10/09/14 0889 Author: Davin Purcell DO Service: (none) Author Type: Physician Filed: 10/09/14 1518 Date of Service: 10/09/141117 Status: Addendum Business Applications Analyst: Davin Purcell DO (Physician) Related Notes: Original Note by Davin Purcell DO (Physician) filed at 10/09/14 1989 [facility] Service: Infectious Disease Progress Note Hospital Day: LOS: 3 days Post-Op Day: * No surgery found * SUBJECTIVE Patient Summary: 24 y.o. female with significant past medical history of intravenous drug use who presented to the emergency department at [facility] on October 06 with 3-4 days of diarrhea and sweats. She was found to be febrile with temperature 101 degrees a nd was hypotensive, responding to IV fluids. Blood cultures were obtained and she was given Rocephin and vancomycin. This led to improvement in her fevers. There was concern about the possibility of endocarditis so the patient was transferred here for further evaluation. On a rrival here, CT scan suggested left pyelonephritis. The patient has been continued on ceftri axone and vancomycin. MRI revealed an isolated stroke in the posterior corpus callosum which may correlate with h er transient visual deficits. CC: left flank pain, fevers and chills Chart reviewed: No new events. Subjective The patient is feeling better overall. She continues to have episodic left flank and suprap ubic pain. She denies any dysuria but has developed some pruritus that suggests she has a ye ast infection. No cough or difficulty breathing. No chest pain. Transesophageal echocardiogr am was well tolerated. ROS No fever, chills sweats. No nausea, vomiting or diarrhea. No rashes or pruritis. No oral pa in. Scheduled Medications aspirin 81 mg Oral Daily with breakfast atorvastatin 80 mg Oral Nightly cefTRIAXone 1 g Intravenous Q24H famotidine 20 mg Oral BID Or famotidine 20 mg Intravenous BID heparin (porcine) 5000 unit/0.5mL 5,000 Units Subcutaneous Q8H vancomycin 1,750 mg Intravenous Q8H Continuous Infusions sodium chloride (IV) 75 mL/hr at 10/08/14 1721 PRN Medications acetaminophen OR acetaminophen, diphenhydrAMINE, HYDROmorphone OR HYDROmorphone, ma gnesium sulfate OR magnesium sulfate OR magnesium sulfate, ondansetron OR ondans etron, oxyCODONE-acetaminophen OR oxyCODONE-acetaminophen, polyethylene glycol, potassiu m chloride OR potassium chloride OR potassium chloride OR potassium chloride O R potassium chloride OR potassium chloride, sodium chloride 0.9 %, zolpidem OBJECTIVE Vital Signs: BP 119/63 | Pulse 79 | Temp(Src) 97.9 F (36.6 C) (Oral) | Resp 20 | Ht 1.778 m (5' 10") | Wt 81 kg (178 lb 9.2 oz) | BMI 25.62 kg/m2 | SpO2 100% | ? No Temp (24hrs), Av.4 F (36.9 C), Min:97.9 F (36.6 C), Max:98.9 F (37.2 C) Exam: Const: Vitals reviewed. No acute distress Skin: No rashes, no edema ENT: No thrush. Lungs: CTAB, no rales or wheezes Heart: RRR, no murmur Abd: soft, mild suprapubic and left flank tenderness, + bowel sounds DATA CBC: Lab Results Component Value Date WBC 12.95* 10/09/2014 RBC 3.66* 10/09/2014 HGB 11.2* 10/09/2014 HCT 33.0* 10/09/2014 MCV 90.2 10/09/2014 MCH 30.7 10/09/2014 MCHC 34.0 10/09/2014 RDW 39.4 10/09/2014 PLT 495* 10/09/2014 MPV 7.4 10/09/2014 DIFFTYPE MANUAL 10/09/2014 CMP: Lab Results Component Value Date NA 140 10/09/2014 K 3.5 10/09/2014 CL 104 10/09/2014 CO2 28 10/09/2014 ANIONGAP 11 10/09/2014 GLUF 115* 10/09/2014 BUN 5* 10/09/2014 CREATININE 0.63 10/09/2014 BCR 7 10/09/2014 CA 8.5 10/09/2014 PROT 6.5 10/07/2014 ALB 3.2* 10/07/2014 GLOB 3.3 10/07/2014 BILITOT 0.4 10/07/2014 ALP 113 10/07/2014 AST 56* 10/07/2014 ALT 48 10/07/2014 EGFR >60 10/09/2014 Microbiology: Blood cultures negative 2 here. Need to verify blood cultures from outside hospital. MRSA screen negative. Medical imaging: BIJAN as follows: CONCLUSIONS 1. No vegetation visualized. 2. Evidence for very small patent foramen ovale present by microcavitation study. PROBLEM LIST Principal Problem: Fever, unspecified Active Problems: Leukocytosis, unspecified IV drug user Left flank pain Acute CVA (cerebrovascular accident) (HCC) ASSESSMENT & PLAN Fever, unspecified (10/06/2014) Workup has been thorough, and has not revealed bacteremia, radiographic evidence of endoca rditis, or skin infection. Imaging suggested pyelonephritis and the patient does have pain t hat is consistent with pyelonephritis, although following a traumatic injury. The injury may have been coincidental. At this point, I would favor transitioning to oral Omnicef to jamarcus nue treatment directed at pyelonephritis and will monitor 24 hours for continued improvement . Rocephin and vancomycin can be discontinued. I have also provided her a single dose of Dif lucan for symptoms of yeast infection. Leukocytosis, unspecified (10/06/2014) Improving, will monitor. IV drug user (10/06/2014) The patient has a remote history, in remission for 4 years. Screening negative for hepatit is and HIV in the past. She has consented for repeat screening at this time. Left flank pain (10/06/2014) May be related to recent fall, landed on the left side. CT scan suggests pyelonephritis, b ut the patient does not have any other urinary tract symptoms. We will transition to oral Om nicef and monitor as discussed above. Dr. Robbins will assume Infectious Diseases followup on Monday10/10/14. Code Status: Full Code Davin Purcell DO 10/09/2014 onversion Transaction , Provider Unknown - 10/09/2014 9:01 AM PDT Nurse Progress Note by Jens Lou RN at 10/09/14 09 Author: Jens Lou RN Service: (none) Author Type: Registered Nurse Filed: 10/09/1403 Date of Service: 10/09/14900 Status: Signed Business Applications Analyst: Jesn oLu RN (Registered Nurse) Pt concerned that she is developing a vaginal yeast infection. Dr. Brown notified. Will continue to monitor. Jens Lou RN Kolby Scott - 10/09/2014 7:20 AM PDTFormatting of this note might be different from the origi nal. Progress Notes by Kolby Scott MD at 10/09/14719 Author: Kolby Scott MD Service: Neurology Author Type: Physician Filed: 10/09/14 1537 Date of Service: 10/09/14719 Status: Signed Business Applications Analyst: Kolby Scott MD (Physician) [facility] Service: Neurology Follow up Note Date of Admission: 10/06/2014 Attending Physician: Marialuisa Brown,*, Hospitalist History Obtained From: chart review, discussed with Marialuisa Brown,*, patient HISTORY OF PRESENT ILLNESS Summary history: 24 yo woman with risk factors including history of IV drug abuse, chronic smoking was admit eleonora for fever and diarrhea, left erwin pain. She had transient right vision change on Monday for about two hours, denies ongoing headaches or other focal deficit. 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 She had negative MRA of the brain without evidence of vasculitis. She reports no further ne urological changes. BIJAN very small PFO, no clots or vegetation. Carotid doppler right distal ICA 50-69% stenosi s. TSH, vitamin B12 and Lipid profile normal. Hypercoagulation workup pending. Overnight events: No focal neurological deficit. No prescriptions prior to admission Scheduled Medications aspirin 81 mg Oral Daily with breakfast [START ON 10/10/2014] atorvastatin 10 mg Oral Nightly atorvastatin 80 mg Oral Nightly cefdinir 300 mg Oral Q12H famotidine 20 mg Oral BID Or famotidine 20 mg Intravenous BID heparin (porcine) 5000 unit/0.5mL 5,000 Units Subcutaneous Q8H Continuous Infusions PRN Medications acetaminophen OR acetaminophen, diphenhydrAMINE, HYDROmorphone OR HYDROmorphone, ma gnesium sulfate OR magnesium sulfate OR magnesium sulfate, ondansetron OR ondans etron, oxyCODONE-acetaminophen OR oxyCODONE-acetaminophen, polyethylene glycol, potassiu m chloride OR potassium chloride OR potassium chloride OR potassium chloride O R potassium chloride OR potassium chloride, sodium chloride 0.9 %, zolpidem PHYSICAL EXAM Vital Signs: BP 117/72 | Pulse 61 | Temp(Src) 97.4 F (36.3 C) (Oral) | Resp 20 | Ht 1.778 m (5' 10") | Wt 81 kg (178 lb 9.2 oz) | BMI 25.62 kg/m2 | SpO2 98% | ? No Temp: [97.4 F (36.3 C)-98.9 F (37.2 C)] 97.4 F (36.3 C) (10/09 1514) BP: (112-133)/(63-85) 117/72 mmHg (10/09 1514) Heart Rate: [61-114] 61 (10/09 1514) Resp: [16-20] 20 (10/09 1514) SpO2: [96 %-100 %] 98 % (10/09 1514) Neurological Examination: Neurological Examination: Normal speech and cognitive function. Normal reading and writing. No evidence of split-bra in signs. Neck supple. CN: II-XII grossly intact. Motor: Normal muscle bulk. No fasciculation. Move all limbs without difficulty. Motor integration: No abnormal movement. Gait: Normal gait with spontaneous arm swing and turning. CBC: Lab Results Component Value Date WBC 12.95* 10/09/2014 RBC 3.66* 10/09/2014 HGB 11.2* 10/09/2014 HCT 33.0* 10/09/2014 MCV 90.2 10/09/2014 MCH 30.7 10/09/2014 MCHC 34.0 10/09/2014 RDW 39.4 10/09/2014 PLT 495* 10/09/2014 MPV 7.4 10/09/2014 DIFFTYPE MANUAL 10/09/2014 CMP: Lab Results Component Value Date NA 140 10/09/2014 K 3.5 10/09/2014 CL 104 10/09/2014 CO2 28 10/09/2014 ANIONGAP 11 10/09/2014 GLUF 115* 10/09/2014 BUN 5* 10/09/2014 CREATININE 0.63 10/09/2014 BCR 7 10/09/2014 CA 8.5 10/09/2014 PROT 6.5 10/07/2014 ALB 3.2* 10/07/2014 GLOB 3.3 10/07/2014 BILITOT 0.4 10/07/2014 ALP 113 10/07/2014 AST 56* 10/07/2014 ALT 48 10/07/2014 EGFR >60 10/09/2014 HDL CHOL Date Value Ref Range Status 10/08/2014 36* >40 mg/dL Final Testing performed at [facility], [address] [place] [address] Triglycerides Date Value Ref Range Status 10/08/2014 47 <150 mg/dL Final Testing performed at [facility], [address] [place] [address] LDL CALC Date Value Ref Range Status 10/08/2014 44 <100 mg/dL Final Testing performed at [facility], [address] [place] [address] CHOLESTEROL Date Value Ref Range Status 10/08/2014 89 <200 mg/dL Final Testing performed at [facility], [facility] [place] [address] Lab Results Component Value Date LDLCALC 44 10/08/2014 No results found for this basename: albcsf, appearcsf, ceftriaxonecsf, colorcsf, esocsf No results found for this basename: gluccsf, lymphcsf, proteincsf, rbccsf, wbccsf Mra Head Without Contrast 10/08/2014 1. Normal MRA of the cerebral arterial system. No stenosis, occlusion, aneury sm or vasculitis noted. 2. Please note that the splenial branches of the posterior cerebral arteries would be too small to be resolved at 1.5 Jennie. Mri Brain Without Contrast 10/07/2014 Findings were reported to Dr. Davin Purcell by telephone at 10/07/2014 3:15 PM. C linically, isolated corpus callosum infarcts are associated with neuropsychiatric symptoms, mainly interhemispheric disconnection syndromes. Patients may experience gait disorders, a praxia, agraphia, tactile anomia, alien hand syndrome. Consultation with neurology is rec ommended. 10/07/2014 1. 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 This would be due to occlusion of the splenial branch of one of the posterior cerebral arteries. 2. No other infarcts are identified. 3. Otherwise normal MRI examination of the brain. El ectronically signed by Eh Vences DO on 10/07/2014 3:[address] Abdomen Pelvis With Iv Contrast 10/07/2014 1. Findings suggest pyelonephritis of the left kidney lower pole. Correlate cl inically. 2. Prominent periaortic lymph nodes, probably reactive. 3. Multi-follicular ovar ies and minimal free fluid in the pelvis. Ultrasound Carotid Bilateral 10/07/2014 1. There is 50-69% stenosis of the right internal carotid artery distally. 2. No other areas of hemodynamically significant stenosis. Ultrasound Lower Extremity Venous Doppler Bilateral 10/09/2014 1. No evidence of lower extremity deep vein thrombosis. Echo Cardiac Adult Complete 10/08/2014 1. Overall left ventricular systolic function is mildly impaired with, an EF be tween 45 - 50 %. 2. no obvious veg. Echo Bijan 10/08/2014 1. No vegetation visualized. 2. Evidence for very small patent foramen ovale pr esent by microcavitation study. PROBLEM LIST Principal Problem: Leukocytosis, unspecified Active Problems: IV drug user Left flank pain Acute CVA (cerebrovascular accident) (HCC) ASSESSMENT & PLAN 24 yo woman with risk factors including history of IV drug abuse, chronic smoking was admit eleonora for fever and diarrhea, left erwin pain. She had transient right vision change on Monday . 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 She had negative MRA of the brain without evidence of vasculitis. She reports no further ne urological changes. BIJAN very small PFO, no clots or vegetation. Carotid doppler right distal ICA 50-69% stenosi s. TSH, vitamin B12 and Lipid profile normal. Hypercoagulation workup and HIV pending. Neurologically she is stable. She will continue aspirin for secondary stroke prevention. She understands her risk factors for stroke including IV drug abuse and chronic smoking. Recommend CTA of the neck for evaluation of her carotid disease. The patient and family verbalized understanding, agreement, and compliance with the recomme ndation. Please call for any new neurological changes or questions. Code Status: Full Code Primary Care Physician: ESVIN RICE Thank you for allowing me to participate in the care of this patient. I have discussed my recommendations with the attending physician. Kolby Scott MD 10/09/2014 onversion Transaction, Provider Unknown - 10/08/2014 1:40 PM PDTFormatting of this note might be different from brett mcknight original. Therapy Progress Note by CIARAN Iraheta at 10/08/14 1340 Author: CIARAN Iraheta Service: (none) Author Type: Occupational Therapist Filed: 10/08/14 4489 Date of Service: 10/08/141339 Status: Signed Business Applications Analyst: CIARAN Iraheta (Occupational Therapist) 10/08/14 1349 Home Environment Type of Home Home one story Home Exterior Layout 4-6 steps;Ramp Home Interior Layout Lives on main level with bedroom/bathroom Bathroom Shower/Tub Tub/shower unit Bathroom Toilet Standard Bathroom Equipment Shower chair Additional Comments Pt reports 1 fall last week. Prior Function Level of Nash Independent with functional mobility;Independent with ADLs;Independe nt with IADLs Lives With Other (Comment) (lives with grandpa ) Receives Help From Family ADL Assistance Independent Home ADL's Independent ADL Grooming Assistance Independent LE Dressing Assistance Independent Toileting Assistance with Device Supervision (asist with IV pole ) Functional Assistance Independent Vision-Basic Assessment Current Vision (vision at baseline ) Cognition Overall Cognitive Status WFL Orientation Level Oriented Sensation Additional Comments no c/o numbness or tingling Perception Inattention/Neglect Appears intact Initiation Appears intact Motor Planning Appears intact Perseveration Not present RUE Assessment RUE Assessment WFL LUE Assessment LUE Assessment WFL Hand Function Gross Grasp Functional Functional Gross Grasp Able to grasp objects without difficulty;Able to hold objects in dom inant hand;Able to hold objects in non-dominant hand Coordination Functional Assessment Prognosis Good Plan Progress Discontinue OT OT Frequency Evaluation/screen only, no additonal treatment Requires OT Follow Up No Recommendation Recommendation Return to prior living conditions Education Completed: Education Topic: OT role/assessment Completed with: Patient Completed by: Verbal Education Response to Education: Stated Understanding Occupational Therapy Plan: Discontinue OT services at this time. Reason for D/C: pt demo's ability to complete ADL s Independently with good balance and no safety concerns. No acute care goals identified. The following recommendations are made for d/c planning at this time: Return to home when medically stable Barriers to d/c at this time include: None per OT Marialuisa Gates MD - 10/08/2014 11:45 AM PDTFormatting of this note might be different from t maritza original. Progress Notes by Marialuisa Brown MD at 10/08/14 0499 Author: Marialuisa Brown MD Service: (none) Author Type: Physician Filed: 10/08/14 1521 Date of Service: 10/08/149 Status: Signed Business Applications Analyst: Marialuisa Brown MD (Physician) [facility] Service: Hospitalist Progress Note Hospital Day: LOS: 2 days SUBJECTIVE Patient Summary: 24-year-old female with a history of IV drug abuse admitted with fe cate and left flank pain. Patient had a fall on her side and subsequently developed left fla nk pain. Patient has been started on Rocephin and vancomycin. CT scan shows possible left p yelonephritis. Infectious disease consulted. 2-D echocardiogram shows no vegetation. MRI of the brain shows acute CVA. Neurology consulted and BIJAN pending. Events Overnight: Patient continues to have left flank pain and suprapubic pain and sh e states that she feels a little better.Patient denies any weakness and ambulating with no d ifficulty. Scheduled Medications aspirin 81 mg Oral Daily with breakfast atorvastatin 80 mg Oral Nightly cefTRIAXone 1 g Intravenous Q24H famotidine 20 mg Oral BID Or famotidine 20 mg Intravenous BID heparin (porcine) 5000 unit/0.5mL 5,000 Units Subcutaneous Q8H vancomycin 1,750 mg Intravenous Q8H Continuous Infusions sodium chloride (IV) 125 mL/hr at 10/06/142035 PRN Medications acetaminophen OR acetaminophen, diphenhydrAMINE, HYDROmorphone OR HYDROmorphone, ma gnesium sulfate OR magnesium sulfate OR magnesium sulfate, ondansetron OR ondans etron, oxyCODONE-acetaminophen OR oxyCODONE-acetaminophen, polyethylene glycol, potassiu m chloride OR potassium chloride OR potassium chloride OR potassium chloride O R potassium chloride OR potassium chloride, sodium chloride 0.9 %, zolpidem OBJECTIVE Vital Signs: BP 116/76 | Pulse 75 | Temp(Src) 98.5 F (36.9 C) (Oral) | Resp 16 | Ht 1.778 m (5' 10") | Wt 81 kg (178 lb 9.2 oz) | BMI 25.62 kg/m2 | SpO2 98% | ? No Patient Vitals for the past 24 hrs: BP Temp Temp src Pulse Resp SpO2 10/08/14 1117 116/76 mmHg 98.5 F (36.9 C) Oral 75 16 98 % 10/08/14 0715 115/69 mmHg 98.1 F (36.7 C) Oral 101 18 97 % 10/08/14 0327 122/64 mmHg 99.1 F (37.3 C) Oral 92 18 97 % 10/08/14 0015 141/77 mmHg 98.6 F (37 C) Axillary 100 14 99 % 10/07/14 1947 135/66 mmHg 98.5 F (36.9 C) Oral 106 18 97 % 10/07/14 1608 121/89 mmHg 98.4 F (36.9 C) Oral 100 17 96 % Intake/Output Summary (Last 24 hours) at 10/08/14 1145 Last data filed at 10/08/14 1046 Gross per 24 hour Intake 3835 ml Output 2450 ml Net 1385 ml Physical Exam: Constitutional: Alert and oriented to person, place, and time. Appears well-developed and w ell-nourished. HEENT: Neck supple, no JVD, non icteric sclera. Cardiovascular: Normal rate, regular rhythm, normal heart sounds with S1 and S2, Exam re veals no gallop and no friction rub. No murmur heard. No S3, No S4 Pulmonary/Chest: Effort normal and breath sounds normal. No stridor. No respiratory distres s. no wheezes. no rales. exhibits no tenderness. Abdominal: Soft. Bowel sounds are normal. exhibits no distension and no mass. There is Ten derness left flank and suprapubic area. There is no rebound and no guarding. Extremeties/Musculoskeletal: Normal range of motion.exhibits no tenderness. exhibits no ed michael. Neurological: Alert and oriented to person, place, and time. Strength 5-5 all extremities . Skin: Skin is warm and dry. Psychiatric: Has a normal mood and affect. DATA Recent Labs Lab 10/08/14 0510 10/07/14 0537 WBC 17.41* 19.52* RBC 3.66* 3.82 HGB 10.9* 11.5 HCT 32.8* 34.3 MCV 89.6 89.8 MCH 29.9 30.2 MCHC 33.3 33.7 RDW 39.8 38.5 PLT 420* 380 MPV 7.9 8.1 DIFFTYPE AUTOMATED MANUAL Recent Labs Lab 10/08/14 0510/07/14 0537 NA 135 134* K 3.5 2.9* CL 102 102 CO2 26 24 BUN 4* 3* CREATININE 0.61 0.66 PROT -- 6.5 BILITOT -- 0.4 ALT -- 48 AST -- 56* GLUF 103* 138* Recent Labs Lab 10/07/14 0537 PHOS 2.8 Recent Labs Lab 10/08/1450910/07/14 0537 MG 1.6* 1.7 Invalid input(s): ABG No results for input(s): APTT, INR, PTT in the last 168 hours. carotid ultrasound Impression: 1. There is 50-69% stenosis of the right internal carotid artery distally. 2. No other areas of hemodynamically significant stenosis. PROBLEM LIST Principal Problem: Fever, unspecified Active Problems: Leukocytosis, unspecified IV drug user Left flank pain Acute CVA (cerebrovascular accident) (HCC) ASSESSMENT & PLAN 1. Fever with leukocytosis .Fever has resolved. Etiology is not clear at present. Contin ue Rocephin and vancomycin. per Dr. Purcell .White count is trending down. Await blood culture results.stool is negative for C. difficile Echocardiogram shows no vegetation. Cardiology consulted for BIJAN. 2. Acute CVA. continue aspirin and high-dose Lipitor. Hypercoagulable workup pending lipi d profile results noted. Neurology consulted. Carotid ultrasound results noted.MRA of the head was normal. 3. History of IV drug abuse. Urine Tox screen shows only opiates.. [place] had [place] 4 [place] and had a single relapse recently. 4. DVT prophylaxis continue heparin 5. Sinus tachycardia possibly secondary to fever continue IV hydration 6. Flank pain continue oxycodone and Dilaudid when necessary. CT findings suggest pyelone phritis possible contusion versus pyelonephritis 7. Hypomagnesemia will replenish The plan has explained in detail to the patient , all questions were answered.All data was reviewed. Disposition: Pending course Code Status: Full Code Marialuisa Brown MD 10/08/2014 11:45 AM This entry has been created using [employer] Speech Recognition software and [employer]. The entry has been reviewed and there may still exist sound alike word errors. onversion Trans action, Provider Unknown - 10/08/2014 11:03 AM PDT Therapy Progress Note by BRIDGETT Null at 10/08/14 1103 Author: BRIDGETT Null Service: (none) Author Type: Massage Therapist Filed: 10/08/14 1103 Date of Service: 10/08/14 110 Status: Signed Business Applications Analyst: BRIDGETT Null (Massage Therapist) 10/08/14 1103 Massage Therapy Interventions Locations Back;Neck;Shoulder Massage Therapy Technique Effleurage;Petrissage;Uzbek massage Response to treatment Decreased muscle tension Davin Gallo DO - 10/08/2014 10:44 AM PDTFormatting of this note might be different from the juanita ginal. Progress Notes by Davin Purcell DO at 10/08/14 1044 Author: Davin Purcell DO Service: (none) Author Type: Physician Filed: 10/08/14 1122 Date of Service: 10/08/14 1044 Status: Signed Business Applications Analyst: Davin Purcell DO (Physician) [facility] Service: Infectious Disease Progress Note Hospital Day: LOS: 2 days Post-Op Day: * No surgery found * SUBJECTIVE Patient Summary: 24 y.o. female with significant past medical history of intravenous drug use who presented to the emergency department at [facility] on October 06 with 3-4 days of diarrhea and sweats. She was found to be febrile with temperature 101 degrees a nd was hypotensive, responding to IV fluids. Blood cultures were obtained and she was given Rocephin and vancomycin. This led to improvement in her fevers. There was concern about the possibility of endocarditis so the patient was transferred here for further evaluation. On a rrival here, CT scan suggested left pyelonephritis. The patient has been continued on ceftri axone and vancomycin. MRI revealed an isolated stroke in the posterior corpus callosum which may correlate with h er transient visual deficits. CC: left flank pain, fevers and chills Chart reviewed: No new events. Subjective The patient denies any ongoing visual loss in the right eye. Her left flank pain has mostly resolved but continues to occasionally flare up. She denies any dysuria. She denies any jakob n in any of her other joints. ROS No fever, chills sweats. No nausea, vomiting or diarrhea. No rashes or pruritis. No oral pa in. Scheduled Medications aspirin 81 mg Oral Daily with breakfast atorvastatin 80 mg Oral Nightly cefTRIAXone 1 g Intravenous Q24H famotidine 20 mg Oral BID Or famotidine 20 mg Intravenous BID heparin (porcine) 5000 unit/0.5mL 5,000 Units Subcutaneous Q8H vancomycin 1,750 mg Intravenous Q8H Continuous Infusions sodium chloride (IV) 125 mL/hr at 10/06/146 PRN Medications acetaminophen OR acetaminophen, diphenhydrAMINE, HYDROmorphone OR HYDROmorphone, on dansetron OR ondansetron, oxyCODONE-acetaminophen OR oxyCODONE-acetaminophen, polyet hylene glycol, potassium chloride OR potassium chloride OR potassium chloride OR potassium chloride OR potassium chloride OR potassium chloride, sodium chloride 0.9 %, zolpidem OBJECTIVE Vital Signs: BP 115/69 | Pulse 101 | Temp(Src) 98.1 F (36.7 C) (Oral) | Resp 18 | Ht 1.778 m (5' 10" ) | Wt 81 kg (178 lb 9.2 oz) | BMI 25.62 kg/m2 | SpO2 97% | ? No Temp (24hrs), Av.5 F (36.9 C), Min:98.1 F (36.7 C), Max:99.1 F (37.3 C) Exam: Const: Vitals reviewed. No acute distress Skin: No rashes, no edema ENT: No thrush. Lungs: CTAB, no rales or wheezes Heart: RRR, no murmur Abd: soft, NT, + bowel sounds Musculoskeletal: No tenderness in left costovertebral angle area, no ecchymosis there. No g ross deformity or active arthritis in the extremities. DATA CBC: Lab Results Component Value Date WBC 17.41* 10/08/2014 RBC 3.66* 10/08/2014 HGB 10.9* 10/08/2014 HCT 32.8* 10/08/2014 MCV 89.6 10/08/2014 MCH 29.9 10/08/2014 MCHC 33.3 10/08/2014 RDW 39.8 10/08/2014 PLT 420* 10/08/2014 MPV 7.9 10/08/2014 DIFFTYPE AUTOMATED 10/08/2014 CMP: Lab Results Component Value Date NA 135 10/08/2014 K 3.5 10/08/2014 CL 102 10/08/2014 CO2 26 10/08/2014 ANIONGAP 11 10/08/2014 GLUF 103* 10/08/2014 BUN 4* 10/08/2014 CREATININE 0.61 10/08/2014 BCR 7 10/08/2014 CA 8.1* 10/08/2014 PROT 6.5 10/07/2014 ALB 3.2* 10/07/2014 GLOB 3.3 10/07/2014 BILITOT 0.4 10/07/2014 ALP 113 10/07/2014 AST 56* 10/07/2014 ALT 48 10/07/2014 EGFR >60 10/08/2014 Microbiology: Blood cultures negative 2 here. Need to verify blood cultures from outside hospital. MRSA screen negative. Medical imaging: MRI results as follows: Mra Head Without Contrast 10/08/2014 1. Normal MRA of the cerebral arterial system. No stenosis, occlusion, aneury sm or vasculitis noted. 2. Please note that the splenial branches of the posterior cerebral arteries would be too small to be resolved at 1.5 Jennie. Mri Brain Without Contrast 10/07/2014 Findings were reported to Dr. Davin Purcell by telephone at 10/07/2014 3:15 PM. C linically, isolated corpus callosum infarcts are associated with neuropsychiatric symptoms, mainly interhemispheric disconnection syndromes. Patients may experience gait disorders, a praxia, agraphia, tactile anomia, alien hand syndrome. Consultation with neurology is rec ommended. 10/07/2014 1. 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 This would be due to occlusion of the splenial branch of one of the posterior cerebral arteries. 2. No other infarcts are identified. 3. Otherwise normal MRI examination of the brain. El ectronically signed by Eh Vences DO on 10/07/2014 3:06 PM Echo Cardiac Adult Complete 10/08/2014 1. Overall left ventricular systolic function is mildly impaired with, an EF be tween 45 - 50 %. 2. no obvious veg. MRI findings discussed with Dr. Vences, Dr. Brown and Dr. Scott. PROBLEM LIST Principal Problem: Fever, unspecified Active Problems: Leukocytosis, unspecified IV drug user Left flank pain Acute CVA (cerebrovascular accident) (HCC) ASSESSMENT & PLAN Fever, unspecified (10/06/2014) the patient's potential sources include endocarditis, gastroenteritis, or pyelonephritis. W ell covered with Rocephin and vancomycin. Await blood cultures, which will hopefully help to determine the most likely source. At this time, there is no evidence of endocarditis but th e risk is high due to the history of IV drug use and finding of stroke in a very young patie nt without traditional risk factors. I would recommend transesophageal echocardiogram regard less of blood culture results from the outside hospital. Leukocytosis, unspecified (10/06/2014) Will monitor. IV drug user (10/06/2014) The patient has a remote history, in remission for 4 years. Screening negative for hepatiti s and HIV in the past. she has consented for repeat screening at this time. Left flank pain (10/06/2014) May be related to recent fall, landed on the left side. CT scan suggests pyelonephritis, bu t the patient does not have any other urinary tract symptoms. This could be a contusion rela eleonora to her traumatic injury. Code Status: Full Code Davin Purcell DO 10/08/2014 onversion Transaction , Provider Unknown - 10/08/2014 10:00 AM PDT Therapy Progress Note by Pat Edwards PT at 10/08/14 1000 Author: Pat Edwards PT Service: (none) Author Type: Physical Therapist Filed: 10/08/14 1028 Date of Service: 10/08/14 1000 Status: Signed Business Applications Analyst: Pat Edwards PT (Physical Therapist) 10/08/14 1000 PT Last Visit PT Received On 10/08/14 Reason for Treatment Stroke Requires PT Follow Up No Follow up PT Only? 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 RLE Assessment RLE Assessment WFL LLE Assessment LLE Assessment WFL Cognition Overall Cognitive Status WFL Orientation Level Oriented Sensation Light Touch No apparent deficits (denies numbness/ tingling) Additional Comments alt toes taps intact; finger to nose intact; heel to redding intact Perception Inattention/Neglect Appears intact Initiation Appears intact Motor Planning Appears intact Perseveration Not present Vision-Basic Assessment Current Vision Other (comment) (vision has returned to baseline but pt needs glasses) Acuity Able to read clock/calendar on wall without difficulty Assessment of Patient Status Assessment of Patient Status (at baseline for mobility; indep) Prognosis Should progress with skilled therapy intervention Safety Devices Safety Devices in Place Not applicable Plan Treatment/Interventions Discharge skilled PT services Progress Reached highest level of independence with therapy PT Frequency Evaluation only Care Duration (# of days) 1 # of days Recommendation Recommendations Prior Setting (recommend pt see an dispatcher service or work) Equipment Recommended None PT Ready for Discharge Yes Recommendation Comments Pt is at baseline for mobility; exhibits no deficits. 10/08/14 1000 PT Last Visit PT Received On 10/08/14 Reason for Treatment Stroke Requires PT Follow Up No Follow up PT Only? No PT Eval/Reassessment Date 10/08/14 Assistance Required Independent Other Comments Comments Chart reviewed, eval completed. 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 Hx of seizures and IV drug use. Pt candy holguin had some visual blurring and saddle numbness which she now reports has resolved. Pt denies pain today and reports feeling, "much better." Pt appeared upbeat and eager to pursu e a [employer] job and get her health in order. Pt exhibited no gait or balance deficits; streng th is intact. Vision at baseline but pt needs glasses. Pt is indep and will be discharge fr skilled P.T. services. Cognition Overall Cognitive Status WFL Orientation Level Oriented Bed Mobility Supine to Sit Independent Sit to Supine Independent Transfers Sit to/from Stand Independent Mobility Ambulation Assistance Independent Maximal Ambulation Distance (feet) 100 Total Ambulation Distance (feet) 100 Distance limited by? Therapist/staff discretion Pattern WFL Assistive Device None Stairs Assistance Independent Number of Stairs 6 Number of stairs limited by? Therapist/staff discretion Stair Management Technique Rail none;[id number] Balance Balance Yes (Tinetti JENAE= 28/28; Postural Assess Scale for Stroke 36/36) Modalities Modalities Other therapy Other Therapy Ed on smoking cessation, signs/symptoms of stroke, and importance of developi ng good health habits at a young age. Activity Tolerance Activity Tolerance Patient tolerated treatment without report of fatigue Nurse Made Aware RN Dede Safety Devices Safety Devices in Place Not applicable Plan Treatment/Interventions Discharge skilled PT services Progress Reached highest level of independence with therapy PT Frequency Evaluation only Care Duration (# of days) 1 # of days Recommendation Recommendations Prior Setting (recommend pt see an dispatcher service or work) Equipment Recommended None PT Ready for Discharge Yes Recommendation Comments Pt is at baseline for mobility; exhibits no deficits. Postural Assessment Scale for Stroke (PASS) Note: The order of the tasks has been rearranged based on position progression Changing Posture 6. Supine to affected side lateral 0=cannot perform the activity 1=can perform the activity with much help 2=can perform the activity with little help 3=can perform the activity without help 7. Supine to nonaffected side lateral 0=cannot perform the activity 1=can perform the activity with much help 2=can perform the activity with little help 3=can perform the activity without help 8. Supine to sitting up on the edge of the table 0=cannot perform the activity 1=can perform the activity with much help 2=can perform the activity with little help 3=can perform the activity without help Maintaining a Posture 1. Sitting without support (sitting on the edge with feet touching the floor) 0=cannot sit 1=can sit with slight support, for example, by 1 hand 2=can sit for more than 10 seconds without support 3=can sit for 5 minutes without support Changing Posture 10. Sitting to standing up (performed without any support; no other constraints) 0=cannot perform the activity 1=can perform the activity with much help 2=can perform the activity with little help 3=can perform the activity without help Maintaining a Posture 2. Standing with support (feet position free, no other constraints) 0=cannot stand, even with support 1=can stand with strong support of 2 people 2=can stand with moderate support of 1 person 3=can stand with support of only 1 hand 3. Standing without support (feet position free, no other constraints) 0=cannot stand without support 1=can stand without support for 10 seconds or leans heavily on 1 leg 2=can stand without support for 1 minute or stands slightly asymmetrically 3=can stand without support for more than 1 minute and at the same time perform arm movemen ts above the shoulder level 4. Standing on nonparetic leg (no other constraints) 0=cannot stand on nonparetic leg 1=can stand on nonparetic leg for a few seconds 2=can stand on nonparetic leg for more than 5 seconds 3=can stand on nonparetic leg for more than 10 seconds 5. Standing on paretic leg (no other constraints) 0=cannot stand on paretic leg 1=can stand on paretic leg for a few seconds 2=can stand on paretic leg for more than 5 seconds 3=can stand on paretic leg for more than 10 seconds Changing Posture 12. Standing, picking up a pencil from the floor (no constraints) 0=cannot perform the activity 1=can perform the activity with much help 2=can perform the activity with little help 3=can perform the activity without help 11. Standing up to sitting down (no constraints) 0=cannot perform the activity 1=can perform the activity with much help 2=can perform the activity with little help 3=can perform the activity without help 9. Sitting on the edge of the table to supine 0=cannot perform the activity 1=can perform the activity with much help 2=can perform the activity with little help 3=can perform the activity without help Total: 36/36 Statistics: Smallest Real Difference = 3.2 (Dutch et al., 2008) 10/08/14 1000 Tinetti Assessment Tool: Balance Tasks Sitting balance 1 Arises 2 Attempts to arise 2 Immediate standing balance 2 Standing balance 2 Nudged 2 Eyes closed 1 Turning 360 degrees - steps 1 Turning 360 degrees - steadiness 1 Sitting down 2 Balance score: 16 Tinetti Assessment Tool: Gait Tasks Initiation of gait 1 Step length & height - right swing foot 1 Step length & height - right foot 1 Step length & height - left swing foot 1 Step length & height - left foot 1 Step symmetry 1 Step continuity 1 Path 2 Trunk 2 Walking stance 1 Gait score: 12 Tinetti Assessment Tool: Total Score Total score (balance + gait): 28 onver venecia Bermudezaction, Provider Unknown - 10/08/2014 5:57 AM PDT Progress Notes by Tere Andre RPH at 10/08/14 0557 Author: Tere Andre RPH Service: (none) Author Type: Pharmacist Filed: 10/08/14 0557 Date of Service: 10/08/14556 Status: Signed Business Applications Analyst: Tere Andre RPH (Pharmacist) Clinical Pharmacy Note: Pharmacy Dosing Vancomycin; Day 2 [facility] 24 y.o. female Weight: 81 kg CREATININE: 0.66 (10/07/14 0537) Estimated creatinine clearance - 142.1 mL/min INDICATION: Fever; possible endocarditis. Recent level drawn 10/07 at 2330 - 17.4 mcg/mL; within goal 15 to 20 mcg/mL. Will continue current regimen: Vancomycin 1750 mg (21.6 mg/kg) IV Q8H. Next level due 10/08 at 1530 - Daily trough while on Q8H regimen. Pharmacy will continue to monitor for changes in renal function and adjust accordingly per protocol. Tere Andre PharmD 10/08/2014 5:55 AM onver venecia Transaction, Provider Unknown - 10/07/2014 6:16 PM PDT Nurse Progress Note by Jeni Ceja RN at 10/07/141815 Author: Jeni Ceja RN Service: (none) Author Type: Registered Nurse Filed: 10/07/147 Date of Service: 10/07/141815 Status: Signed Business Applications Analyst: Jeni Ceja RN (Registered Nurse) Patient aware that she has had a stroke. No deficits noted at this time. Has talked extensi vely about stopping her drug use and wants "to get clean". States she has been to rehab and wishes to return. Medicated 3 times for low left back pain and abdominal pain.Jeni Ceja onver venecia Transaction, Provider Unknown - 10/07/2014 3:15 PM PDT Case Management by Jeni Barboza RN at 10/07/14 1515 Author: Jeni Barboza RN Service: (none) Author Type: Registered Nurse Filed: 10/07/14 1523 Date of Service: 10/07/14 1515 Status: Signed Business Applications Analyst: Jeni Barboza RN (Registered Nurse) 10/07/14 1511 Discharge Planning Evaluation Admitting Diagnosis Fever, diarrhea Readmission No Living Arrangements Family members (Lives with 94 yo maternal grandfather, Jaret Arellano.) Support Systems Parent;Family members Type of Residence Private residence House type Mobile home Independent with ADL's Yes Independent with Mobility Yes Mental Status Oriented Met with: patient and discussed discharge planning, Pt is a 24 y.o., female who lives with grandfather on the [facility] near [place], [place]. Her mother, Danielle Sanchez lives in [facility] and has visited patient. [phone] c. [phone]. Patient's grandmother i n 2013 and she has had difficult time past 6 months. She has completed her GED and has held a job no longer than 3 months. Patient admits to alcohol and drug abuse past 4 years and has had outpatient rehab and mental health counseling at [facility]. Patient's PCP is: ESVIN RICE Patient's insurance: medicaid. Coverage concerns: Medication coverage/concerns: Community resources utilized / needed: TBD Assistance in transportation: Mother to transport. Identification of any specific education / training: Barriers to Discharge / Alternative housing needed: Anticipated DCP: Return to home. Jeni Barboza RN Marialuisa Gates MD - 10/07/2014 10:59 AM PDTFormatting of this note might be different from t maritza original. Progress Notes by Marialuisa Brown MD at 10/07/14 1051 Author: Marialuisa Brown MD Service: (none) Author Type: Physician Filed: 10/07/14 4732 Date of Service: 10/07/14 1050 Status: Addendum Business Applications Analyst: Marialuisa Brown MD (Physician) Related Notes: Original Note by Marialuisa Brown MD (Physician) filed at 10/07/14 1511 [facility] Service: Hospitalist Progress Note Hospital Day: LOS: 1 day SUBJECTIVE Patient Summary: 24-year-old female with a history of IV drug abuse admitted with fe cate and left flank pain. Patient had a fall on her side and subsequently developed left fla nk pain. Patient also reports that prior to admission she had right eye blindness which las eleonora for 2 hours. Patient has been started on Rocephin and vancomycin. CT scan shows possibl e left pyelonephritis. Infectious disease consulted. 2-D echocardiogram is pending Events Overnight: Patient complains of left flank pain. She states that she feels a little better. Scheduled Medications cefTRIAXone 1 g Intravenous Q24H famotidine 20 mg Oral BID Or famotidine 20 mg Intravenous BID heparin (porcine) 5000 unit/0.5mL 5,000 Units Subcutaneous Q8H vancomycin 1,750 mg Intravenous Q8H Continuous Infusions sodium chloride (IV) 125 mL/hr at 10/06/14 2036 PRN Medications acetaminophen OR acetaminophen, diphenhydrAMINE, HYDROmorphone OR HYDROmorphone, on dansetron OR ondansetron, oxyCODONE-acetaminophen OR oxyCODONE-acetaminophen, polyet hylene glycol, potassium chloride OR potassium chloride OR potassium chloride OR potassium chloride OR potassium chloride OR potassium chloride, sodium chloride 0.9 %, zolpidem OBJECTIVE Vital Signs: BP 116/74 | Pulse 100 | Temp(Src) 98.3 F (36.8 C) (Oral) | Resp 17 | Ht 1.778 m (5' 10" ) | Wt 81 kg (178 lb 9.2 oz) | BMI 25.62 kg/m2 | SpO2 96% | ? No Patient Vitals for the past 24 hrs: BP Temp Temp src Pulse Resp SpO2 Height Weight 10/07/14 0844 116/74 mmHg 98.3 F (36.8 C) Oral 100 17 96 % - - 10/07/14 0346 103/59 mmHg 100.5 F (38.1 C) Oral 107 16 95 % - 81 kg (178 lb 9.2 oz) 10/06/14 2338 139/74 mmHg 99.5 F (37.5 C) Oral 103 16 97 % - - 10/06/14 1921 112/72 mmHg 98.4 F (36.9 C) Oral 86 16 98 % - - 10/06/14 1832 113/62 mmHg 98.8 F (37.1 C) Oral 107 18 96 % 1.778 m (5' 10") 78.8 kg (17 3 lb 11.6 oz) Intake/Output Summary (Last 24 hours) at 10/07/14 1059 Last data filed at 10/07/14 0942 Gross per 24 hour Intake 1981 ml Output 2800 ml Net -819 ml Physical Exam: Constitutional: Alert and oriented to person, place, and time. Appears well-developed and w ell-nourished. HEENT: Neck supple, no JVD, non icteric sclera. Cardiovascular: Normal rate, regular rhythm, normal heart sounds with S1 and S2, Exam re veals no gallop and no friction rub. No murmur heard. No S3, No S4 Pulmonary/Chest: Effort normal and breath sounds normal. No stridor. No respiratory distres s. no wheezes. no rales. exhibits no tenderness. Abdominal: Soft. Bowel sounds are normal. exhibits no distension and no mass. There is Ten derness left flank and suprapubic area. There is no rebound and no guarding. Extremeties/Musculoskeletal: Normal range of motion.exhibits no tenderness. exhibits no ed michael. Neurological: Alert and oriented to person, place, and time. Strength 5-5 all extremities . Skin: Skin is warm and dry. Psychiatric: Has a normal mood and affect. DATA Recent Labs Lab 10/07/14 0537 WBC 19.52* RBC 3.82 HGB 11.5 HCT 34.3 MCV 89.8 MCH 30.2 MCHC 33.7 RDW 38.5 PLT 380 MPV 8.1 DIFFTYPE MANUAL Recent Labs Lab 10/07/14 0537 NA 134* K 2.9* CL 102 CO2 24 BUN 3* CREATININE 0.66 PROT 6.5 BILITOT 0.4 ALT 48 AST 56* GLUF 138* Recent Labs Lab 10/07/14 0537 PHOS 2.8 Recent Labs Lab 10/07/14 0537 MG 1.7 Invalid input(s): ABG No results for input(s): APTT, INR, PTT in the last [address] Abdomen Pelvis With Iv Contrast 10/07/2014 1. Findings suggest pyelonephritis of the left kidney lower pole. Correlate cl inically. 2. Prominent periaortic lymph nodes, probably reactive. 3. Multi-follicular ovar ies and minimal free fluid in the pelvis. LEM LIST Principal Problem: Fever, unspecified Active Problems: Leukocytosis, unspecified IV drug user Left flank pain ASSESSMENT & PLAN 1. Fever . Etiology is not clear at present. Continue Rocephin and vancomycin. Dr. Purcell has been consulted. Patient still remains febrile, white count is trending down. Await bl ood culture results. 2. Hypokalemia will replenish 3. History of IV drug abuse. 2-D echocardiogram pending, continue IV antibiotics. Patie nt had been in remission for 4 years and had a single relapse recently. 4. DVT prophylaxis continue heparin 5. Sinus tachycardia possibly secondary to fever continue IV hydration 6. Flank pain continue oxycodone and Dilaudid when necessary. CT findings suggest pyelone phritis possible contusion versus pyelonephritis 7. Acute CVA. Discussed with Dr. Scott recommended 81 mg aspirin, lipid lowering therapy. Will check carotid Dopplers And echocardiogram is pending. Will check lipid profile in t he morning and also urine drug screen. We will do neuro checks physical therapy occupationa l therapy consult and neurology consult. The plan has explained in detail to the patient and her mother, all questions were answered .All data was reviewed. Disposition: Pending course Code Status: Full Code Marialuisa Brown MD 10/07/2014 10:59 AM This entry has been created using [employer] Speech Recognition software and [employer]. The entry has been reviewed and there may still exist sound alike word errors. onversion Trans action, Provider Unknown - 10/07/2014 3:59 AM PDT Progress Notes by Tere Andre RPH at 10/07/14358 Author: Tere Andre RPH Service: (none) Author Type: Pharmacist Filed: 10/07/14358 Date of Service: 10/07/14358 Status: Signed Business Applications Analyst: Tere Andre RPH (Pharmacist) Clinical Pharmacy Note: Renal Monitoring [facility] 24 y.o. female Height: 177.8 cm Weight: 81 kg Serum Creatinine: 0.69 mg/dL (from [facility]) Estimated creatinine clearance - Cockcroft-Gault CrCl: 146 mL/min. Pharmacy dosing for renal function per Dr. Workman. Currently there are no medications needing to be adjusted. Pharmacy will continue to monito r for changes in medication orders and in renal function and adjust accordingly per protocol . Tere Andre PharmHeath 10/07/2014 3:59 AM onver venecia Transaction, Provider Unknown - 10/07/2014 3:58 AM PDT Progress Notes by Tere Andre RPH at 10/07/14357 Author: Tere Andre RPH Service: (none) Author Type: Pharmacist Filed: 10/07/14357 Date of Service: 10/07/14357 Status: Signed Business Applications Analyst: Tere Andre RPH (Pharmacist) Clinical Pharmacy Note: Pharmacy Dosing Vancomycin; Day 1 Kat Spencer 24 y.o. female Height: 177.8 cm Weight: 81 kg WBC: 21.3 Serum Creatinine: 0.69 mg/dL(from [facility]) Estimated creatinine clearance - Cockcroft-Gault CrCl: 146 mL/min. INDICATION: possible endocarditis. First dose of Vancomycin 1000 mg (12.3 mg/kg) was given 10/06 at 1530 at [facility];; will continue 1750 mg (21.6 mg/kg) IV Q8H. Level due 10/07 at 2330; goal 15 to 20 mcg/mL. Pharmacy will continue to monitor for changes in renal function and adjust accordingly per protocol. Tere Andre PharmD 10/07/2014 3:57 AM onver venecia Transaction, Provider Unknown - 10/06/2014 5:22 PM PDT Nurse Progress Note by Mariama Sebastian RN at 10/06/141721 Author: Mariama Sebastian RN Service: (none) Author Type: Registered Nurse Filed: 10/06/141722 Date of Service: 10/06/141721 Status: Signed Business Applications Analyst: Mariama Sebastian RN (Registered Nurse) Report received from [facility] RN. Patient expected to arrive shortly after 1800. Mariama Sebastian RN docume nted in this encounter Plan of Treatment Not on filedocumented as of this encounter Procedures + +--------+ + + + | Procedure Name | Priori | Date/Time | Associated Diagnosis | Comments | | | ty | | | | + +--------+ + + + | EXTERNAL LAB: CBC | Routin | 10/10/2014 | | Results for this | | | e | 5:03 AM | | procedure are in the | | | | PDT | | results section. | + +--------+ + + + | BASIC METABOLIC | Routin | 10/10/2014 | | Results for this | | PANEL | e | 5:03 AM | | procedure are in the | | | | PDT | | results section. | + +--------+ + + + | CT ANGIOGRAM NECK W | Routin | 10/09/2014 | | Results for this | | CONTRAST | e | 4:23 PM | | procedure are in the | | | | PDT | | results section. | + +--------+ + + + | MRI BRAIN WO | Routin | 10/09/2014 | | Results for this | | CONTRAST | e | 4:06 PM | | procedure are in the | | | | PDT | | results section. | + +--------+ + + + | VAS LOWER EXTREMITY | Routin | 10/09/2014 | | Results for this | | VENOUS BILATERAL | e | 2:02 PM | | procedure are in the | | | | PDT | | results section. | + +--------+ + + + | HIV 1 AND 2 ANTIBODY | Routin | 10/09/2014 | | Results for this | | DIFFERENTIATION | e | 12:27 PM | | procedure are in the | | | | PDT | | results section. | + +--------+ + + + | HEPATITIS PANEL, | Routin | 10/09/2014 | | Results for this | | CHRONIC | e | 12:27 PM | | procedure are in the | | | | PDT | | results section. | + +--------+ + + + | EXTERNAL LAB: CBC | Routin | 10/09/2014 | | Results for this | | | e | 6:27 AM | | procedure are in the | | | | PDT | | results section. | + +--------+ + + + | HCAPIN CABAN, | Routin | 10/09/2014 | | Results for this | | EXTENDED PANEL | e | 6:27 AM | | procedure are in the | | | | PDT | | results section. | + +--------+ + + + | VITAMIN B-12 | Routin | 10/09/2014 | | Results for this | | | e | 6:27 AM | | procedure are in the | | | | PDT | | results section. | + +--------+ + + + | TSH | Routin | 10/09/2014 | | Results for this | | | e | 6:27 AM | | procedure are in the | | | | PDT | | results section. | + +--------+ + + + | BASIC METABOLIC | Routin | 10/09/2014 | | Results for this | | PANEL | e | 6:27 AM | | procedure are in the | | | | PDT | | results section. | + +--------+ + + + | ECHO TRANSESOPHAGEAL | Routin | 10/08/2014 | | Results for this | | (BIJAN) | e | 5:15 PM | | procedure are in the | | | | PDT | | results section. | + +--------+ + + + | VANCOMYCIN, TROUGH | Routin | 10/08/2014 | | Results for this | | | e | 3:25 PM | | procedure are in the | | | | PDT | | results section. | + +--------+ + + + | MRI ANGIOGRAM HEAD | Routin | 10/08/2014 | | Results for this | | WO CONTRAST | e | 9:14 AM | | procedure are in the | | | | PDT | | results section. | + +--------+ + + + | EXTERNAL LAB: CBC | Routin | 10/08/2014 | | Results for this | | | e | 5:10 AM | | procedure are in the | | | | PDT | | results section. | + +--------+ + + + | LIPID PANEL | Routin | 10/08/2014 | | Results for this | | | e | 5:10 AM | | procedure are in the | | | | PDT | | results section. | + +--------+ + + + | MAGNESIUM | Routin | 10/08/2014 | | Results for this | | | e | 5:10 AM | | procedure are in the | | | | PDT | | results section. | + +--------+ + + + | BASIC METABOLIC | Routin | 10/08/2014 | | Results for this | | PANEL | e | 5:10 AM | | procedure are in the | | | | PDT | | results section. | + +--------+ + + + | VANCOMYCIN, TROUGH | Routin | 10/07/2014 | | Results for this | | | e | 11:27 PM | | procedure are in the | | | | PDT | | results section. | + +--------+ + + + | DRUGS OF ABUSE | Routin | 10/07/2014 | | Results for this | | SCREEN, URINE (H) | e | 9:07 PM | | procedure are in the | | | | PDT | | results section. | + +--------+ + + + | VAS CAROTID DUPLEX | Routin | 10/07/2014 | | Results for this | | BILATERAL | e | 5:54 PM | | procedure are in the | | | | PDT | | results section. | + +--------+ + + + | ECHO COMPLETE | Routin | 10/07/2014 | | Results for this | | | e | 3:45 PM | | procedure are in the | | | | PDT | | results section. | + +--------+ + + + | HISTORICAL | Timed | 10/07/2014 | | Results for this | | MICROBIOLOGY RESULT | | 2:40 PM | | procedure are in the | | | | PDT | | results section. | + +--------+ + + + | MRI BRAIN WO | Routin | 10/07/2014 | | Results for this | | CONTRAST | e | 1:07 PM | | procedure are in the | | | | PDT | | results section. | + +--------+ + + + | CT ABDOMEN PELVIS W | Routin | 10/07/2014 | | Results for this | | CONTRAST | e | 8:30 AM | | procedure are in the | | | | PDT | | results section. | + +--------+ + + + | CULTURE, BLOOD, 2ND | Timed | 10/07/2014 | | Results for this | | SPECIMEN (NON-ORD) | | 7:58 AM | | procedure are in the | | | | PDT | | results section. | + +--------+ + + + | CULTURE, BLOOD | Timed | 10/07/2014 | | Results for this | | | | 7:50 AM | | procedure are in the | | | | PDT | | results section. | + +--------+ + + + | EXTERNAL LAB: CBC | Routin | 10/07/2014 | | Results for this | | | e | 5:37 AM | | procedure are in the | | | | PDT | | results section. | + +--------+ + + + | PHOSPHORUS | Routin | 10/07/2014 | | Results for this | | | e | 5:37 AM | | procedure are in the | | | | PDT | | results section. | + +--------+ + + + | MAGNESIUM | Routin | 10/07/2014 | | Results for this | | | e | 5:37 AM | | procedure are in the | | | | PDT | | results section. | + +--------+ + + + | COMPREHENSIVE | Routin | 10/07/2014 | | Results for this | | METABOLIC PANEL | e | 5:37 AM | | procedure are in the | | | | PDT | | results section. | + +--------+ + + + | HCG, URINE, QUAL | Routin | 10/07/2014 | | Results for this | | | e | 12:09 AM | | procedure are in the | | | | PDT | | results section. | + +--------+ + + + | MRSA NAAT | Timed | 10/06/2014 | | Results for this | | | | 9:55 PM | | procedure are in the | | | | PDT | | results section. | + +--------+ + + + | CULTURE, MRSA | Routin | 10/06/2014 | | Results for this | | | e | 9:55 PM | | procedure are in the | | | | PDT | | results section. | + +--------+ + + + documented in this encounter Results External Lab: [facility] (10/10/2014 5:03 AM PDT) + + + + + + | Component | Value | Ref Range | Performed | Pathologist | | | | | At | Signature | + + + + + + | WBC | 13.14 (H)Comment: | 3.80 - 11.00 | EXTERNAL | | | | Testing performed at | K/uL | LAB | | | | [facility], [address] [facility] | | | | | | [place] | | | | | | [address] | | | | + + + + + + | Red Blood | 3.84Comment: Testing | 3.70 - 5.10 | EXTERNAL | | | Cells | performed at [facility], [address] | M/uL | LAB | | | Counted | [address] [place], | | | | | | [place] [address] | | | | + + + + + + | Hemoglobin | 11.6Comment: Testing | 11.3 - 15.5 | EXTERNAL | | | | performed at [facility], [address] | g/dL | LAB | | | | [address], | | | | | | [place], [place] [address] | | | | + + + + + + | Hematocrit, | 34.5Comment: Testing | 34.0 - 46.0 % | EXTERNAL | | | POC | performed at [facility], [address] | | LAB | | | | [address], | | | | | | [place] [address] | | | | + + + + + + | MCV | 89.9Comment: Testing | 80.0 - 100.0 fl | EXTERNAL | | | | performed at [facility], [address] | | LAB | | | | [address], | | | | | | [place] [address] | | | | + + + + + + | MCH | 30.1Comment: Testing | 27.0 - 34.0 pg | EXTERNAL | | | | performed at [facility], [address] | | LAB | | | | [address], | | | | | | [place] [address] | | | | + + + + + + | MCHC | 33.5Comment: Testing | 32.0 - 35.5 | EXTERNAL | | | | performed at [facility], [address] | g/dL | LAB | | | | [address], | | | | | | [place] [address] | | | | + + + + + + | RDW-CV | 38.9Comment: Testing | 37 - 53 fl | EXTERNAL | | | | performed at [facility], [address] | | LAB | | | | [address], | | | | | | [place] [address] | | | | + + + + + + | Platelet | 656 (H)Comment: Testing | 150 - 400 K/uL | EXTERNAL | | | Count | performed at [facility], [address] | | LAB | | | Plasma | [address], | | | | | | [place] [address] | | | | + + + + + + | MPV | 7.5Comment: Testing | fl | EXTERNAL | | | | performed at [facility], [address] | | LAB | | | [address], | | | | | | [place] [address] | | | | + + + + + + | Differentia | MANUALComment: Testing | | EXTERNAL | | | l Type | performed at [facility], [address] | | LAB | | | | [address], | | | | | | [place] [address] | | | | + + + + + + | Segmented | 66Comment: Testing | % | EXTERNAL | | | Neutrophils | performed at [facility], [address] | | LAB | | | Manual | [address], | | | | | | [place] [address] | | | | + + + + + + | % Bands | 1Comment: Testing | % | EXTERNAL | | | | performed at [facility], [address] | | LAB | | | | [address], | | | | | | [place] [address] | | | | + + + + + + | % | 1Comment: Testing | % | EXTERNAL | | | Metamyelocy | performed at [facility], [address] | | LAB | | | dayanara | [address], | | | | | | [place], [place] [address] | | | | + + + + + + | % | 1Comment: Testing | % | EXTERNAL | | | Myelocytes | performed at [facility], [address] | | LAB | | | | [address], | | | | | | [place] [address] | | | | + + + + + + | Lymphocytes | 18Comment: Testing | % | EXTERNAL | | | Manual | performed at [facility], [address] | | LAB | | | | [address], | | | | | | [place] [address] | | | | + + + + + + | Monocytes | 9Comment: Testing | % | EXTERNAL | | | Manual | performed at [facility], [address] | | LAB | | | | [place], | | | | | | [place] [address] | | | | + + + + + + | Eosinophils | 4Comment: Testing | % | EXTERNAL | | | Manual | performed at [facility], [address] | | LAB | | | | [place], | | | | | | [place] [address] | | | | + + + + + + | Absolute | 8.67 (H)Comment: Testing | 1.90 - 7.40 | EXTERNAL | | | Neutrophils | performed at [facility], [address] | K/uL | LAB | | | | [address] [place], | | | | | | [place] [address] | | | | + + + + + + | Bands | 0.13Comment: Testing | 0.00 - 0.20 | EXTERNAL | | | Manual | performed at [facility], [address] | K/uL | LAB | | | | [address], | | | | | | [place] [address] | | | | + + + + + + | Absolute | 0.13 (H)Comment: Testing | K/uL | EXTERNAL | | | Metamyelocy | performed at [facility], [address] | | LAB | | | [address] | [email or web address], | | | | | | [place] [address] | | | | + + + + + + | Absolute | 0.13 (H)Comment: Testing | K/uL | EXTERNAL | | | Myelocytes | performed at [facility], [address] | | LAB | | | | [email or web address], | | | | | | [place] [address] | | | | + + + + + + | Absolute | 2.37Comment: Testing | 1.00 - 3.90 | EXTERNAL | | | Lymphocytes | performed at [facility], [address] | K/uL | LAB | | | | [place], | | | | | | [place] [address] | | | | + + + + + + | Absolute | 1.18 (H)Comment: Testing | 0.00 - 0.80 | EXTERNAL | | | Monocytes | performed at [facility], [address] | [address] | LAB | | | | [address], | | | | | | [place] [address] | | | | + + + + + + | Absolute | 0.53 (H)Comment: Testing | 0.00 - 0.50 | EXTERNAL | | | Eosinophils | performed at [facility], [address] | [address]/u[address] | LAB | | | | [address] [place], | | | | | | [place] [address] | | | | + + + + + + | Platelet | INCREASEDComment: | | EXTERNAL | | | Estimate | Testing performed at | | LAB | | | | [facility], [address] | | | | | | [place] | | | | | | [address] | | | | + + + + + + | RBC | NORMAL PLT MORPHComment: | | EXTERNAL | | | Morphology | NORMAL RBC MORPHTesting | | LAB | | | | performed at [facility], [address] | | | | | [address] [place], | | | | | | [place] [address] | | | | + + + + + + + + | Specimen | + + | Blood specimen | | (specimen) | + + + +---------+ + + | Performing | Address | City/State/Zipcode | Phone Number | | Organization | | | | + +---------+ + + | EXTERNAL LAB | | | | + +---------+ + + Basic Metabolic Panel (10/10/2014 5:03 AM PDT) + + + + + + | Component | Value | Ref Range | Performed | Pathologist | | | | | At | Signature | + + + + + + | Na | 137Comment: Testing | 135 - 143 | EXTERNAL | | | | performed at [facility], [address] | mmol/L | LAB | | | | [place], | | | | | | [place] [address] | | | | + + + + + + | K | 3.8Comment: Testing | 3.5 - 4.9 | EXTERNAL | | | | performed at [facility], [address] | mmol/L | LAB | | | | [place], | | | | | | [place] [address] | | | | + + + + + + | Cl | 102Comment: Testing | 99 - 109 mmol/L | EXTERNAL | | | | performed at [facility], [address] | | LAB | | | | [address], | | | | | | [place] [address] | | | | + + + + + + | CO2 | 29Comment: Testing | 23 - 32 mmol/L | EXTERNAL | | | | performed at [facility], [address] | | LAB | | | | [address], | | | | | | [place] [address] | | | | + + + + + + | Anion Gap | 10Comment: Testing | 5 - 20 mmol/L | EXTERNAL | | | | performed at [facility], [address] | | LAB | | | | [address], | | | | | | [place] [address] | | | | + + + + + + | Glucose, | 99Comment: Testing | 65 - 99 mg/dL | EXTERNAL | | | Fasting | performed at [facility], [address] | | LAB | | | | [address], | | | | | | [place] [address] | | | | + + + + + + | BUN | 8Comment: Testing | 8 - 25 mg/dL | EXTERNAL | | | | performed at [facility], [address] | | LAB | | | | [address], | | | | | | [place] [address] | | | | + + + + + + | Creatinine | 0.59Comment: Testing | 0.50 - 1.00 | EXTERNAL | | | | performed at [facility], [address] | mg/dL | LAB | | | | [address], | | | | | | [place] [address] | | | | + + + + + + | BUN/Creatin | 14Comment: Testing | | EXTERNAL | | | ine Ratio | performed at [facility], [address] | | LAB | | | | [place], | | | | | | [place] [address] | | | | + + + + + + | Calcium | 8.7Comment: Testing | 8.5 - 10.5 | EXTERNAL | | | | performed at [facility], [address] | mg/dL | LAB | | | | [place], | | | | | | [place] [address] | | | | + + + + + + | Estimated | >60Comment: GFR <60: | mL/min/1.73m2 | EXTERNAL | | | GFR | CHRONIC KIDNEY DISEASE, | | LAB | | | | IF FOUND OVER A 3 MONTH | | | | | | PERIOD.GFR <15: KIDNEY | | | | | | FAILURE.FOR | | | | | | AMERICANS, MULTIPLY THE | | | | | | CALCULATED GFR BY | | | | | | 1.210.Testing performed | | | | | | at [facility], [address] | | | | | | [place], | | | | | | [place] [address] | | | | + + + + + + + + | Specimen | + + | Blood specimen | | (specimen) | + + + +---------+ + + | Performing | Address | City/State/Zipcode | Phone Number | | Organization | | | | + +---------+ + + | EXTERNAL LAB | | | | + +---------+ + + CT Angiogram Neck w Contrast (10/09/2014 4:23 PM PDT) + + | Specimen | + + | | + + + + + | Impressions | Performed At | + + + | 1. No evidence of carotid arterial stenosis. 2. Cannot | | | exclude a left-sided thyroid nodule. Consider further evaluation with | | | a dedicated thyroid ultrasound. | | + + + + + + | Narrative | Performed At | + + + | KAT SPENCER 1990 24 years Female CTA NECK W CONTRAST | | | 10/09/2014 4:23 PM HISTORY: Abnormal carotid Doppler ultrasound. | | | COMPARISON: None. TECHNIQUE: Axial 1.25 mm arterial phase | | | images were acquired through the neck according to a CT angiography | | | protocol. Multiplanar CT angiographic MIP reconstructions were | | | performed from the arterial phase data set by the blood bank technologist. IV | | | contrast: 100 mL IsoVue 370 FINDINGS: The thoracic aortic arch is | | | patent. The bilateral subclavian, common carotid, vertebral, internal | | | carotid, and external carotid arteries are widely patent. The normal | | | proximal internal carotid artery measurement is 4.6 mm, with a normal | | | reference measurement of 4.6 mm, corresponding to a 0% NASCET | | | stenosis. The proximal left internal carotid artery appears normal | | | with a measurement of 4.5 mm, within normal distal reference | | | measurement of 4.5 mm, corresponding to a 0% NASCET stenosis. The | | | visualized orbital structures are normal. The nasopharynx, oropharynx, | | | laryngeal pharynx, trachea, appearing normal. The thyroid gland is | | | somewhat heterogeneous in its enhancement pattern, with a left-sided | | | thyroid nodule not excluded measuring 8 mm. The lung apices are | | | clear. No worrisome bone lesions are found. | | + + + + + | Procedure Note | + + | Bishop, Rad Conversion - 01/04/2019 8:49 AM PDT [place] [facility] | | FemaleCTA NECK W CONTRAST10/09/2014 4:23 PM HISTORY: Abnormal carotid Doppler | | ultrasound. COMPARISON: None. TECHNIQUE:Axial 1.25 mm arterial phase images were | | acquired through the neck according to a CT angiography protocol. Multiplanar CT | | angiographic MIP reconstructions were performed from the arterial phase data set by the | | blood bank technologist.IV contrast: 100 mL IsoVue 370 FINDINGS: The thoracic aortic arch is | | patent. The bilateral subclavian, common carotid, vertebral, internal carotid, and | | external carotid arteries are widely patent. The normal proximal internal carotid artery | | measurement is 4.6 mm, with a normal reference measurement of 4.6 mm, corresponding to | | a 0% NASCET stenosis. The proximal left internal carotid artery appears normal with a | | measurement of 4.5 mm, within normal distal reference measurement of 4.5 mm, | | corresponding to a 0% NASCET stenosis. The visualized orbital structures are normal. The | | nasopharynx, oropharynx, laryngeal pharynx, trachea, appearing normal. The thyroid | | gland is somewhat heterogeneous in its enhancement pattern, with a left-sided thyroid | | nodule not excluded measuring 8 mm. The lung apices are clear. No worrisome bone lesions | | are found. IMPRESSION: 1. No evidence of carotid arterial stenosis. 2. Cannot exclude | | a left-sided thyroid nodule. Consider further evaluation with a dedicated thyroid | | ultrasound. | |thyroid nodule not excluded measuring 8 mm. | | The lung apices are clear. No worrisome bone lesions are found. | | | |IMPRESSION: | |1. No evidence of carotid arterial stenosis. | | | |2. Cannot exclude a left-sided thyroid nodule. Consider further evaluation with a dedicate d thyroid ultrasound. | | | | | + + MRI Brain wo Contrast (10/09/2014 4:06 PM PDT) + + | Specimen | + + | | + + + + + | Impressions | Performed At | + + + | Dramatic improvement of the appearance of the DWI signal changes | | | previously seen in the splenium of the corpus callosum. This may | | | represent pseudonormalization of signal intensity due to the decreased | | | contribution by the ADC component on the DWI sequence which | | | typically occurs 3 days post infarct. Alternatively, the relatively | | | rapid loss of the DWI signal component may indicate that the area | | | involved was acutely ischemic but not completely infarcted. This | | | would explain why the FLAIR and T2 sequences do not show significant | | | increased signal at this point. Differential diagnosis would | | | include focal status epilepticus involving the splenium of the corpus | | | callosum which has now resolved. | | + + + + + + | Narrative | Performed At | + + + | KAT AARTI MRI BRAIN WO CONTRAST 10/09/2014 4:06 PM HISTORY: | | | 24 years. Female. Prior brain MRI. Patient has had revision. | | | History of IV drug use. TECHNIQUE: Imaging was performed on a | | | 1.5 Jennie MRI system. Multiplanar sequences were acquired according | | | to a standard department protocol without contrast. COMPARISON: | | | MRI brain 10/07/2014 FINDINGS: The splenium of the corpus callosum | | | shows minimally increased signal intensity on the DWI sequence and | | | near normal values on ADC map which represents significant improvement | | | in comparison to 48 hours ago. The ventricles, cisterns and sulci | | | are normal in size and configuration. No extraaxial fluid collections | | | are noted. The other midline structures including the robina, | | | cerebellar vermis, pineal gland and pituitary are normal. No masses | | | are seen in the region of the cerebellopontine angles or internal | | | auditory canals. The orbits and their contents are normal. The | | | paranasal sinuses are well aerated. No air-fluid levels or mucosal | | | thickening is noted. No fluid seen in the mastoids. The osseous | | | structures of the calvaria and upper cervical spine demonstrate normal | | | bone marrow signal intensity. The soft tissues of the oropharynx | | | and upper neck appear normal on the sagittal sequences. The | | | intracranial arteries demonstrate normal flow voids on the T2 | | | sequence. No large aneurysm is noted. The dural venous sinuses | | | also demonstrate normal flow-voids. | | + + + + + | Procedure Note | + + | Bishop, Rad Conversion - 01/04/2019 8:49 AM PDT [facility] | | CONTRAST10/09/2014 4:06 PM HISTORY:24 years. Female. Prior brain MRI. Patient has had | | revision. History of IV drug use. TECHNIQUE:Imaging was performed on a 1.5 Jennie MRI | | system. Multiplanar sequences were acquired according to a standard department protocol | | without contrast. COMPARISON:MRI brain 10/07/2014 FINDINGS:The splenium of the corpus | | callosum shows minimally increased signal intensity on the DWI sequence and near normal | | values on ADC map which represents significant improvement in comparison to 48 hours | | ago. The ventricles, cisterns and sulci are normal in size and configuration. No | | extraaxial fluid collections are noted. The other midline structures including the | | robina, cerebellar vermis, pineal gland and pituitary are normal. No masses are seen in | | the region of the cerebellopontine angles or internal auditory canals. The orbits and | | their contents are normal. The paranasal sinuses are well aerated. No air-fluid levels | | or mucosal thickening is noted. No fluid seen in the mastoids. The osseous structures | | of the calvaria and upper cervical spine demonstrate normal bone marrow signal | | intensity. The soft tissues of the oropharynx and upper neck appear normal on the | | sagittal sequences. The intracranial arteries demonstrate normal flow voids on the T2 | | sequence. No large aneurysm is noted. The dural venous sinuses also demonstrate normal | | flow-voids. IMPRESSION: Dramatic improvement of the appearance of the DWI signal | | changes previously seen in the splenium of the corpus callosum. This may represent | | pseudonormalization of signal intensity due to the decreased contribution by the ADC | | component on the DWI sequence which typically occurs 3 days post infarct. | | Alternatively, the relatively rapid loss of the DWI signal component may indicate that | | the area involved was acutely ischemic but not completely infarcted. This would explain | | why the FLAIR and T2 sequences do not show significant increased signal at this point. | | Differential diagnosis would include focal status epilepticus involving the splenium of | | the corpus callosum which has now resolved. | | | + + VAS Lower Extremity Venous Bilateral (10/09/2014 2:02 PM PDT) + + | Specimen | + + | | + + + + + | Impressions | Performed At | + + + | 1. No evidence of lower extremity deep vein thrombosis. | | | | | + + + + + + | Narrative | Performed At | + + + | KAT SPENCER LOWER EXTREMITY VENOUS DOPPLER BILAT 10/09/2014 | | | 2:02 PM HISTORY: 24 years. Female. Fever of unknown origin. | | | TECHNIQUE: Bilateral lower extremity venous Doppler performed with | | | color Doppler and spectral Doppler waveform analysis. Duplex Doppler | | | analysis. COMPARISON: None. FINDINGS: Normal | | | compressibility, augmentation of flow, and Doppler flow evident within | | | the deep venous system. No evidence of deep venous thrombosis. | | + + + + + | Procedure Note | + + | Sylvain Alas Conversion - 01/04/2019 8:49 AM PDT KAT SPRINGER LOWER EXTREMITY VENOUS | | DOPPLER BILAT10/09/2014 2:02 PM HISTORY:24 years. Female. Fever of unknown origin. | | TECHNIQUE:Bilateral lower extremity venous Doppler performed with color Doppler and | | spectral Doppler waveform analysis. Duplex Doppler analysis. COMPARISON:None. | | FINDINGS:Normal compressibility, augmentation of flow, and Doppler flow evident within | | the deep venous system. No evidence of deep venous thrombosis. IMPRESSION: 1. No | | evidence of lower extremity deep vein thrombosis. | |Bilateral lower extremity venous Doppler performed with color Doppler and spectral Doppler waveform analysis. Duplex Doppler analysis. | | | |COMPARISON: | |None. | | | |FINDINGS: | |Normal compressibility, augmentation of flow, and Doppler flow evident within the deep veno us system. No evidence of deep venous thrombosis. | | | |IMPRESSION: | |1. No evidence of lower extremity deep vein thrombosis. | | | | | + + Hepatitis Panel, Chronic (10/09/2014 12:27 PM PDT) + + + + + + | Component | Value | Ref Range | Performed | Pathologist | | | | | At | Signature | + + + + + + | Hep A Total | REACTIVE (A)Comment: | | EXTERNAL | | | Ab Interp | Testing performed at | | LAB | | | | [facility], [address] | | | | | | [place] | | | | | | [address] | | | | + + + + + + | HEP B | NON REACTIVEComment: | | EXTERNAL | | | SURFACE | Testing performed at | | LAB | | | ANTIBODY | [facility], [address] | | | | | | [place] | | | | | | [address] | | | | + + + + + + | Hepatitis B | NON REACTIVEComment: | | EXTERNAL | | | Core Ab | Testing performed at | | LAB | | | Total | [facility], [address] | | | | | | [place] | | | | | | [address] | | | | + + + + + + | HEP B | <0.35Comment: <1.00 | IV | EXTERNAL | | | SURFACE | Non Immune1.00 | | LAB | | | ANTIBODY | OR MORE Indicates | | | | | | vaccine response or | | | | | | response to HBV | | | | | | infection. An Index | | | | | | Value (IV) of 1.00 is | | | | | | equivalent to 10 mIU/mL. | | | | | | Samples with an IV of | | | | | | 1.00 or greater are | | | | | | considered reactive | | | | | | (protected) in | | | | | | accordance with CDC | | | | | | Guidelines.Testing | | | | | | performed at [facility], [facility] [address] | | | | | | [facility] [place], | | | | | | [place] [address] | | | | + + + + + + | HCV Ab | NON REACTIVEComment: | | EXTERNAL | | | | Testing performed at | | LAB | | | | [facility], [address] [facility] | | | | | | [place] | | | | | | [address] | | | | + + + + + + | Hepatitis | Current or past HAV | | EXTERNAL | | | Interpretat | infection. No serologic | | LAB | | | ion | evidence of HCV | | | | | | infection or HBV | | | | | | infection or | | | | | | vaccination.Comment: | | | | | | Testing performed at | | | | | | [facility], [address] [facility] | | | | | | [place], [place] | | | | | | [address] | | | | + + + + + + + + | Specimen | + + | | + + + +---------+ + + | Performing | Address | City/State/Zipcode | Phone Number | | Organization | | | | + +---------+ + + | EXTERNAL LAB | | | | + +---------+ + + HIV 1 and 2 Antibody Differentiation (10/09/2014 12:27 PM PDT) + + + + + + | Component | Value | Ref Range | Performed | Pathologist | | | | | At | Signature | + + + + + + | HIV 1 and 2 | NON REACTIVEComment: THE | | EXTERNAL | | | Ab | NON REACTIVE HIV 1/2 | | LAB | | | | ANTIBODY RESULT | | | | | | INDICATES THAT | | | | | | ANTIBODIES TO HIV 1/2 | | | | | | HAVE NOT BEEN DETECTED | | | | | | IN THIS SPECIMEN. THIS | | | | | | RESULT DOES NOT | | | | | | PRECLUDE PREVIOUS | | | | | | EXPOSURE OR | | | | | | INFECTION.Testing | | | | | | performed at [facility], [address] | | | | | | [facility], | | | | | | [place] [address] | | | | + + + + + + + + | Specimen | + + | Blood specimen | | (specimen) | + + + +---------+ + + | Performing | Address | City/State/Zipcode | Phone Number | | Organization | | | | + +---------+ + + | EXTERNAL LAB | | | | + +---------+ + + Hypercoag Concha, Extended Panel (10/09/2014 6:27 AM PDT) + + + + + + | Component | Value | Ref Range | Performed | Pathologist | | | | | At | Signature | + + + + + + | Homocystein | 8.2Comment: Testing | 4.0 - 12.0 | EXTERNAL | | | e-Norm | performed at [facility], [address] | umol/L | LAB | | | | [facility] | | | | | | [place] [address] | | | | + + + + + + | [place] [id number], | REAL TIME PCRComment: | | EXTERNAL | | | Result | Testing performed at | | LAB | | | | [facility] [facility], [address] | | | | | | [place] | | | | | | [address] | | | | + + + + + + | [place] [phone], | NEGATIVEComment: Testing | | EXTERNAL | | | Result | performed at [facility], [address] | | LAB | | | | [address] [place] | | | | | | [place] [address] | | | | + + + + + + | [place] [address], | SEE BELOWComment: THE | | EXTERNAL | | | Result | PROTHROMBIN G/A | | LAB | | | | MUTATION WAS NOT | | | | | | DETECTED.PATIENTS | | | | | | RECEIVING GENETIC | | | | | | TESTING SHOULD CONSIDER | | | | | | GENETIC | | | | | | COUNSELING.COUNSELING OF | | | | | | POTENTIALLY AFFECTED | | | | | | FAMILY MEMBERS MAY ALSO | | | | | | BEWARRANTED.Testing | | | | | | performed at [facility], [address] | | | | | | [place] | | | | | | [place] [address] | | | | + + + + + + | [place] [phone] | SEE BELOWComment: THIS | | EXTERNAL | | | COM 1 | TEST WAS DEVELOPED AND | | LAB | | | | ITS PERFORMANCE | | | | | | CHARACTERISTICS | | | | | | DETERMINEDBY [facility]. THE | | | | | | U.S. FOOD AND DRUG | | | | | | ADMINISTRATION (FDA) HAS | | | | | | NOT APPROVEDOR CLEARED | | | | | | THIS TEST. HOWEVER, FDA | | | | | | APPROVAL OR CLEARANCE IS | | | | | | CURRENTLYNOT REQUIRED | | | | | | FOR CLINICAL USE OF THIS | | | | | | TEST.THE RESULTS ARE | | | | | | NOT INTENDED TO BE USED | | | | | | THE SOLE MEANS FOR | | | | | | CLINICALDIAGNOSIS OR | | | | | | PATIENT MANAGEMENT | | | | | | DECISIONS. [facility] IS | | | | | | AUTHORIZED UNDERCLINICAL | | | | | | LABORATORY IMPROVEMENT | | | | | | AMENDMENTS (CLIA) TO | | | | | | PERFORMHIGH-COMPLEXITY | | | | | | TESTING.THIS TEST IS | | | | | | PERFORMED BY REAL TIME | | | | | | PCR USING THE Text A Cab | | | | | | LIGHTCYCLERINSTRUMENT. | | | | | | THE PRODUCT OF PCR IS | | | | | | DETECTED BY FLUORESCENCE | | | | | | PRODUCEDWHEN A SPECIFIC | | | | | | PAIR OF PROBES, EACH | | | | | | LABELED WITH A | | | | | | FLUOROPHORE, BINDSTO THE | | | | | | PCR PRODUCT IN CLOSE | | | | | | PROXIMITY.Testing | | | | | | performed at [facility], [address] | | | | | | [place] | | | | | | [place] [address] | | | | + + + + + + | Anticardiol | 2Comment: Unit: GPL | GPL U/mL | EXTERNAL | | | ipin IgG | NEGATIVE | | LAB | | | | 0-14INDETERMINATE | | | | | | 15-20POSITIVE | | | | | | > 20Testing | | | | | | performed at [facility], [address] | | | | | | [place] | | | | | | [place] [address] | | | | | | | | | | + + + + + + | Anticardiol | 8Comment: NEGATIVE | MPL U/ML | EXTERNAL | | | ipin IgM | | | LAB | | | | 0-12INDETERMINATE | | | | | | 13-20POSITIVE | | | | | | > 20THE HIGHER THE | | | | | | ANTICARDIOLIPIN RESULT, | | | | | | THE MORE LIKELY IT | | | | | | ISCLINICALLY | | | | | | SIGNIFICANT. STUDIES | | | | | | SUGGEST THAT IGG RESULTS | | | | | | GREATER THAN40 ARE | | | | | | LIKELY TO BE MOST | | | | | | SIGNIFICANT CLINICALLY, | | | | | | HOWEVER AN | | | | | | ABSOLUTETHRESHOLD HAS | | | | | | NOT BEEN | | | | | | IDENTIFIED.INTERMEDIATE | | | | | | LEVELS AND IGM | | | | | | ANTIBODIES ARE OF | | | | | | UNCLEAR | | | | | | SIGNIFICANCECLINICALLY, | | | | | | AND REQUIRE CORRELATION | | | | | | WITH OTHER CLINICAL | | | | | | FINDINGS.TRANSIENT | | | | | | POSITIVE LEVELS MAY BE | | | | | | SEEN, ESPECIALLY | | | | | | ASSOCIATED | | | | | | WITHINFECTION. | | | | | | LABORATORY DIAGNOSIS | | | | | | OF ANTI-PHOSPHOLIPID | | | | | | SYNDROME INASSOCIATION | | | | | | WITH ANTICARDIOLIPIN | | | | | | ANTIBODIES REQUIRES | | | | | | PERSISTENTPOSITIVE | | | | | | VALUES UPON RETESTING | | | | | | AFTER 12 WEEKS.Testing | | | | | | performed at [facility], [address] | | | | | | [place] | | | | | | [place] [address] | | | | + + + + + + | Activated | 2.4Comment: A RATIO OF | | EXTERNAL | | | Protein C | LESS THAN 2.0 IS | | LAB | | | Resistance | SUGGESTIVE OF APC | | | | | | RESISTANCE.Testing | | | | | | performed at [facility] | | | | | | [facility], | | | | | | [address] , [place] | | | | | | [address] | | | | + + + + + + | Protein C | 95Comment: Testing | 70 - 145 % | EXTERNAL | | | activity | performed at [facility] | | LAB | | | | [facility], | | | | | | [address], [place] | | | | | | [address] | | | | + + + + + + | Protein S | 98Comment: Testing | 59 - 153 % | EXTERNAL | | | activity | performed at [facility] | | LAB | | | | [facility], | | | | | | [address], [place] | | | | | | [address] | | | | + + + + + + | Antithrombi | 116Comment: Testing | 85 - 126 % | EXTERNAL | | | n III | performed at [facility] | | LAB | | | Activity | [facility], | | | | | | [address], [place] | | | | | | [address] | | | | + + + + + + | Antithrombi | 88Comment: Testing | 70 - 110 % | EXTERNAL | | | n III | performed at [facility] | | LAB | | | Antigen | [facility], | | | | | | [address], [place] | | | | | | [address] | | | | + + + + + + | PROTIME PAT | 14.8 (H)Comment: Testing | 12.0 - 14.2 sec | EXTERNAL | | | 0 MINS | performed at [facility] | | LAB | | | | [facility], | | | | | | [address], [place] | | | | | | [address] | | | | + + + + + + | aPTT, | 14.1Comment: PROLONGED | sec | EXTERNAL | | | Patient/Con | PT SUGGESTS ORAL | | LAB | | | trol Mix | ANTICOAGULANT EFFECT. | | | | | | LUPUS INHIBITORSTUDIES | | | | | | MAY BE FALSELY POSITIVE | | | | | | IF PATIENT IS ON ORAL | | | | | | ANTICOAGULATION.Testing | | | | | | performed at [facility] | | | | | | [facility], | | | | | | [address], [place] | | | | | | [address] | | | | + + + + + + | Thrombin | 15.2 (L)Comment: Testing | 15.6 - 20.0 sec | EXTERNAL | | | Time, | performed at [facility] | | LAB | | | Patient | [facility], | | | | | | [address], [place] | | | | | | [address] | | | | + + + + + + | aPTT, | 42 (H)Comment: Testing | 26 - 36 sec | EXTERNAL | | | Patient | performed at [facility] | | LAB | | | | [facility], | | | | | | [address], [place] | | | | | | [address] | | | | + + + + + + | PTT, | 31Comment: Testing | sec | EXTERNAL | | | Control | performed at [facility] | | LAB | | | Plasma | [facility], | | | | | | [address], [place] | | | | | | [address] | | | | + + + + + + | aPTT Mixing | 36Comment: A PTT MIX | sec | EXTERNAL | | | Interp | THAT IS NOT WITHIN 5 | | LAB | | | | SECONDS OF THE CONTROL | | | | | | PLASMA USUALLYSUGGESTS | | | | | | AN INHIBITOR.Testing | | | | | | performed at [facility] | | | | | | [facility], | | | | | | [address], [place] | | | | | | [address] | | | | + + + + + + | Dilute | 51.2 (H)Comment: Testing | 31.8 - 45.7 sec | EXTERNAL | | | Aram | performed at [facility] | | LAB | | | Viper Venom | [facility], | | | | | Time | [address] | | | | | | [address] | | | | + + + + + + | dRVVT, Mix | 1.2Comment: RATIOS LESS | 0.0 - 1.2 | EXTERNAL | | | ratio | THAN OR EQUAL TO 1.2 ARE | | LAB | | | | NEGATIVE FOR THE LUPUS | | | | | | INHIBITOR.Testing | | | | | | performed at [facility] | | | | | | [facility], | | | | | | [address], [place] | | | | | | [address] | | | | + + + + + + | PT, Mixing | SEE BELOWComment: THE | | EXTERNAL | | | Interp | PROLONGED APTT WITH | | LAB | | | | CORRECTION ON A 1:1 MIX | | | | | | WITH NORMAL | | | | | | PLASMAWITHOUT | | | | | | ABNORMALITIES OF THE | | | | | | PROTIME SUGGESTS A | | | | | | DEFICIENCY OF | | | | | | ANINTRINSIC PATHWAY | | | | | | FACTOR. THE MOST | | | | | | COMMON CAUSE IS VON | | | | | | WILLEBRANDSDISEASE, | | | | | | ALTHOUGH ABNORMALITIES | | | | | | OF OTHER FACTORS (FACTOR | | | | | | VIII, IX,XI, XII, HMW | | | | | | KININOGEN, OR | | | | | | PREKALLIKREIN) MAY ALSO | | | | | | CAUSE PROLONGEDAPTTS. | | | | | | CLINICAL CORRELATION | | | | | | IS SUGGESTED.Testing | | | | | | performed at [facility] | | | | | | [facility], | | | | | | [address], [facility] | | | | | | [address] | | | | + + + + + + | Reviewed By | SEE BELOWComment: | | EXTERNAL | | | | OBEY PAULINO JR., | | LAB | | | | M.D.Testing performed at | | | | | | [facility] | | | | | | [place], [address], | | | | | | [facility] [address] | | | | + + + + + + + + | Specimen | + + | | + + + +---------+ + + | Performing | Address | City/State/Zipcode | Phone Number | | Organization | | | | + +---------+ + + | EXTERNAL LAB | | | | + +---------+ + + External Lab: CBC (10/09/2014 6:27 AM PDT) + + + + + + | Component | Value | Ref Range | Performed | Pathologist | | | | | At | Signature | + + + + + + | WBC | 12.95 (H)Comment: | 3.80 - 11.00 | EXTERNAL | | | | Testing performed at | K/uL | LAB | | | | [facility];[address] | | | | | | [address];[place] [address] | | | | + + + + + + | Red Blood | 3.66 (L)Comment: Testing | 3.70 - 5.10 | EXTERNAL | | | Cells | performed at [facility];[address] | M/uL | LAB | | | Counted | [address];[place] | | | | | | [address] | | | | + + + + + + | Hemoglobin | 11.2 (L)Comment: Testing | 11.3 - 15.5 | EXTERNAL | | | | performed at [facility];[address] | g/dL | LAB | | | | [address];[place] | | | | | | [address] | | | | + + + + + + | Hematocrit, | 33.0 (L)Comment: Testing | 34.0 - 46.0 % | EXTERNAL | | | POC | performed at [facility];[address] | | LAB | | | | [address];[place] | | | | | | [address] | | | | + + + + + + | MCV | 90.2Comment: Testing | 80.0 - 100.0 fl | EXTERNAL | | | | performed at [facility];[address] | | LAB | | | | [address] | | | | | | [address] | | | | + + + + + + | MCH | 30.7Comment: Testing | 27.0 - 34.0 pg | EXTERNAL | | | | performed at [facility];[address] | | LAB | | | | [address];[place] | | | | | | [address] | | | | + + + + + + | MCHC | 34.0Comment: Testing | 32.0 - 35.5 | EXTERNAL | | | | performed at [facility];[address] | g/dL | LAB | | | | [address] | | | | | | [address] | | | | + + + + + + | RDW-CV | 39.4Comment: Testing | 37 - 53 fl | EXTERNAL | | | | performed at [facility];[address] | | LAB | | | | [address] | | | | | | [address] | | | | + + + + + + | Platelet | 495 (H)Comment: Testing | 150 - 400 K/uL | EXTERNAL | | | Count | performed at [facility];[address] | | LAB | | | Plasma | [address];[place] | | | | | | [address] | | | | + + + + + + | MPV | 7.4Comment: Testing | fl | EXTERNAL | | | | performed at [facility];[address] | | LAB | | | | [address] | | | | | | [address] | | | | + + + + + + | Differentia | MANUALComment: Testing | | EXTERNAL | | | l Type | performed at [facility];[address] | | LAB | | | | [address] | | | | | | [address] | | | | + + + + + + | Nucleated | 1 (H)Comment: Testing | /100WBC | EXTERNAL | | | Red Blood | performed at [facility];[address] | | LAB | | | Cells | [address];[place] | | | | | | [address] | | | | + + + + + + | Segmented | 69Comment: Testing | % | EXTERNAL | | | Neutrophils | performed at [facility];[address] | | LAB | | | Manual | [address];[place] | | | | | | [address] | | | | + + + + + + | % Bands | 1Comment: Testing | % | EXTERNAL | | | | performed at [facility];[address] | | LAB | | | | [address] | | | | | | [address] | | | | + + + + + + | % | 1Comment: Testing | % | EXTERNAL | | | Myelocytes | performed at [facility];[address] | | LAB | | | | [address] | | | | | | [address] | | | | + + + + + + | Lymphocytes | 19Comment: Testing | % | EXTERNAL | | | Manual | performed at [facility];[address] | | LAB | | | | [address];[place] | | | | | | [address] | | | | + + + + + + | Monocytes | 6Comment: Testing | % | EXTERNAL | | | Manual | performed at [facility];[address] | | LAB | | | | [address] | | | | | | [address] | | | | + + + + + + | Eosinophils | 4Comment: Testing | % | EXTERNAL | | | Manual | performed at [facility];[address] | | LAB | | | | [address];[place] | | | | | | [address] | | | | + + + + + + | Absolute | 8.93 (H)Comment: Testing | 1.90 - 7.40 | EXTERNAL | | | Neutrophils | performed at [facility];[address] | K/uL | LAB | | | | [address] | | | | | | [address] | | | | + + + + + + | Bands | 0.13Comment: Testing | 0.00 - 0.20 | EXTERNAL | | | Manual | performed at [facility];[address] | K/uL | LAB | | | | [address] | | | | | | [address] | | | | + + + + + + | Absolute | 0.13 (H)Comment: Testing | K/uL | EXTERNAL | | | Myelocytes | performed at [facility];[address] | | LAB | | | | [address] | | | | | | [address] | | | | + + + + + + | Absolute | 2.46Comment: Testing | 1.00 - 3.90 | EXTERNAL | | | Lymphocytes | performed at [facility];[address] | K/uL | LAB | | | | [address] | | | | | | [address] | | | | + + + + + + | Absolute | 0.78Comment: Testing | 0.00 - 0.80 | EXTERNAL | | | Monocytes | performed at [facility];[address] | K/uL | LAB | | | | [address] | | | | | | [address] | | | | + + + + + + | Absolute | 0.52 (H)Comment: Testing | 0.00 - 0.50 | EXTERNAL | | | Eosinophils | performed at [facility];[address] | K/uL | LAB | | | | [address] | | | | | | [address] | | | | + + + + + + | Platelet | INCREASEDComment: | | EXTERNAL | | | Estimate | Testing performed at | | LAB | | | | [facility];[address];[place] [address] | | | | + + + + + + | RBC | RBC AND PLT MORPHOLOGY | | EXTERNAL | | | Morphology | APPEAR NORMALComment: | | LAB | | | | Testing performed at | | | | | | [facility];[address] [facility] | | | | | | Bl;[place] [address] | | | | + + + + + + + + | Specimen | + + | Blood specimen | | (specimen) | + + + +---------+ + + | Performing | Address | City/State/Zipcode | Phone Number | | Organization | | | | + +---------+ + + | EXTERNAL LAB | | | | + +---------+ + + TSH (10/09/2014 6:27 AM PDT) + + + + + + | Component | Value | Ref Range | Performed | Pathologist | | | | | At | Signature | + + + + + + | TSH | 1.10Comment: Testing | 0.45 - 5.10 | EXTERNAL | | | | performed at [facility];[address] | uIU/mL | LAB | | | | [address];[place], [place] | | | | | | [address] | | | | + + + + + + + + | Specimen | + + | Blood specimen | | (specimen) | + + + +---------+ + + | Performing | Address | City/State/Zipcode | Phone Number | | Organization | | | | + +---------+ + + | EXTERNAL LAB | | | | + +---------+ + + Vitamin B-12 (10/09/2014 6:27 AM PDT) + + + + + + | Component | Value | Ref Range | Performed | Pathologist | | | | | At | Signature | + + + + + + | VITAMIN | 837Comment: Testing | 254 - 1,320 | EXTERNAL | | | B-12 | performed at [facility], [address] | pg/mL | LAB | | | | [address], | | | | | | [place] [address] | | | | + + + + + + + + | Specimen | + + | Blood specimen | | (specimen) | + + + +---------+ + + | Performing | Address | City/State/Zipcode | Phone Number | | Organization | | | | + +---------+ + + | EXTERNAL LAB | | | | + +---------+ + + Basic Metabolic Panel (10/09/2014 6:27 AM PDT) + + + + + + | Component | Value | Ref Range | Performed | Pathologist | | | | | At | Signature | + + + + + + | Na | 140Comment: Testing | 135 - 143 | EXTERNAL | | | | performed at [facility];[address] | mmol/L | LAB | | | | [address] | | | | | | [address] | | | | + + + + + + | K | 3.5Comment: Testing | 3.5 - 4.9 | EXTERNAL | | | | performed at [facility];[address] | mmol/L | LAB | | | | [address] | | | | | | [address] | | | | + + + + + + | Cl | 104Comment: Testing | 99 - 109 mmol/L | EXTERNAL | | | | performed at [facility];[address] | | LAB | | | | [address] | | | | | | [address] | | | | + + + + + + | CO2 | 28Comment: Testing | 23 - 32 mmol/L | EXTERNAL | | | | performed at [facility];[address] | | LAB | | | | [address] | | | | | | [address] | | | | + + + + + + | Anion Gap | 11Comment: Testing | 5 - 20 mmol/L | EXTERNAL | | | | performed at [facility];[address] | | LAB | | | | [address] | | | | | | [address] | | | | + + + + + + | Glucose, | 115 (H)Comment: Testing | 65 - 99 mg/dL | EXTERNAL | | | Fasting | performed at [facility];[address] | | LAB | | | | [address] | | | | | | [address] | | | | + + + + + + | BUN | 5 (L)Comment: Testing | 8 - 25 mg/dL | EXTERNAL | | | | performed at [facility];[address] | | LAB | | | | [address] | | | | | | [address] | | | | + + + + + + | Creatinine | 0.63Comment: Testing | 0.50 - 1.00 | EXTERNAL | | | | performed at [facility];[address] | mg/dL | LAB | | | | [address] | | | | | | [address] | | | | + + + + + + | BUN/Creatin | 7Comment: Testing | | EXTERNAL | | | ine Ratio | performed at [facility];[address] | | LAB | | | | [address] | | | | | | [address] | | | | + + + + + + | Calcium | 8.5Comment: Testing | 8.5 - 10.5 | EXTERNAL | | | | performed at [facility];[address] | mg/dL | LAB | | | | [address] | | | | | | [address] | | | | + + + + + + | Estimated | >60Comment: GFR <60: | mL/min/1.73m2 | EXTERNAL | | | GFR | CHRONIC KIDNEY DISEASE, | | LAB | | | | IF FOUND OVER A 3 MONTH | | | | | | PERIOD.GFR <15: KIDNEY | | | | | | FAILURE.FOR | | | | | | AMERICANS, MULTIPLY THE | | | | | | CALCULATED GFR BY | | | | | | 1.210.Testing performed | | | | | | at [facility];[address] [place] [address] | | | | | | [facility];[place] [address] | | | | + + + + + + + + | Specimen | + + | Blood specimen | | (specimen) | + + + +---------+ + + | Performing | Address | City/State/Zipcode | Phone Number | | Organization | | | | + +---------+ + + | EXTERNAL LAB | | | | + +---------+ + + ECHO Transesophageal (BIJAN) (10/08/2014 5:15 PM PDT) + + | Specimen | + + | | + + + + + | Impressions | Performed At | + + + | 1. No vegetation visualized. 2. Evidence for very small patent | | | foramen ovale present by microcavitation study. | | + + + + + + | Narrative | Performed At | + + + | Patient Name: KAT SPENCER Date of : 1990 | | | Performing Physician: Dorina Varma MD | | | | | | ------REPORT ADDENDED------ INDICATIONS TIA | | | CONCLUSIONS 1. No vegetation visualized. 2. Evidence | | | for very small patent foramen ovale present by microcavitation study. | | | FINDINGS -------- ECG rhythm: Sinus tachycardia Thrombus: No | | | vegetation visualized. Procedure: Transesophageal echocardiogram with | | | spectral and color flow Doppler, and agitated saline contrast bubble | | | study was performed. Procedure: The patient was in the fasting | | | state. Informed consent was obtained after benefits and risks of the | | | procedure were discussed with the patient including but not limited | | | to the potential for esophageal puncture and . The oropharynx | | | was anesthetized with 1% Hurricane spray. After consious sedation, | | | the transesophageal probe was advanced and placed in the esophagus | | | and multiple projections of the cardiovascular structures were | | | acquired and recorded. This was followed by advancement of the | | | probe into the stomach for transgastric imaging. Finally, | | | interrogation of the descending aorta and arch was performed. The | | | probe was removed. The patient tolerated the procedure well. | | | There were no immediate complications. 2 D, pulsed and continuous | | | wave form and color images were interpreted in real time. Study | | | quality: This was a technically adequate study. Left Ventricle: The | | | left ventricle size is normal. Left Ventricle: Overall left | | | ventricular systolic function is normal with, an EF between 60 - 65 %. | | | Left Atrium: The left atrial size is normal. Left Atrium: Normal | | | left atrial appendage without evidence for thrombi. Right Ventricle: | | | The right ventricle is normal in size measuring < 33 mm. Right | | | Atrium: The right atrial size is normal. Right Atrium: Eustachian | | | valve seen in the right atrium (normal finding). Interatrial Septum: | | | Evidence for very small patent foramen ovale present by | | | microcavitation study. Interatrial Septum: No shunt seen with color | | | Doppler. Aortic Valve: The aortic valve is trileaflet, and appears | | | structurally normal. No aortic stenosis or regurgitation. Aortic | | | Valve: No vegetation visualized. Mitral Valve: The mitral valve is | | | normal. Mitral Valve: There is trace mitral regurgitation. Mitral | | | Valve: No vegetation was seen. Tricuspid Valve: The tricuspid valve | | | appears structurally normal. Mild (physiologic) regurgitation. | | | Tricuspid Valve: No vegetation visualized. Pulmonic Valve: The | | | pulmonic valve was not well visualized. MEASUREMENTS | | | Research Project Coordinator: JAIME Authenticated by: Dorina Varma | | | Report Date/Time: 10-08-2014 21:45:59 | | + + + + + | Procedure Note | + + | Bishop, Rad Conversion - 01/04/2019 8:49 AM PDT Patient Name: Deepika SPENCER | | : 1990 Performing Physician: Dorina Varma | | ------REPORT | | ADDENDED------INDICATIONS TIA CONCLUSIONS 1. No vegetation | | visualized.2. Evidence for very small patent foramen ovale present by microcavitation | | study. FINDINGS--------ECG rhythm: Sinus tachycardiaThrombus: No vegetation | | visualized.Procedure: Transesophageal echocardiogram with spectral and color flow | | Doppler, and agitated saline contrast bubble study was performed.Procedure: The patient | | was in the fasting state. Informed consent was obtained after benefits and risks of | | the procedure were discussed with the patient including but not limited to the potential | | for esophageal puncture and . The oropharynx was anesthetized with 1% Hurricane | | spray. After consious sedation, the transesophageal probe was advanced and placed in | | the esophagus and multiple projections of the cardiovascular structures were acquired | | and recorded. This was followed by advancement of the probe into the stomach for | | transgastric imaging. Finally, interrogation of the descending aorta and arch was | | performed. The probe was removed. The patient tolerated the procedure well. There | | were no immediate complications. 2 D, pulsed and continuous wave form and color images | | were interpreted in real time.Study quality: This was a technically adequate study.Left | | Ventricle: The left ventricle size is normal.Left Ventricle: Overall left ventricular | | systolic function is normal with, an EF between 60 - 65 %.Left Atrium: The left atrial | | size is normal.Left Atrium: Normal left atrial appendage without evidence for | | thrombi.Right Ventricle: The right ventricle is normal in size measuring < 33 mm.Right | | Atrium: The right atrial size is normal.Right Atrium: Eustachian valve seen in the right | | atrium (normal finding).Interatrial Septum: Evidence for very small patent foramen | | ovale present by microcavitation study.Interatrial Septum: No shunt seen with color | | Doppler.Aortic Valve: The aortic valve is trileaflet, and appears structurally normal. | | No aortic stenosis or regurgitation.Aortic Valve: No vegetation visualized.Mitral Valve: | | The mitral valve is normal.Mitral Valve: There is trace mitral regurgitation.Mitral | | Valve: No vegetation was seen.Tricuspid Valve: The tricuspid valve appears structurally | | normal. Mild (physiologic) regurgitation.Tricuspid Valve: No vegetation | | visualized.Pulmonic Valve: The pulmonic valve was not well visualized. | | MEASUREMENTS Research Project Coordinator: Savanahted by: Dorina Varma [facility] | | Date/Time: 10-08-2014 21:45:59 IMPRESSION: 1. No vegetation visualized.2. Evidence for | | very small patent foramen ovale present by microcavitation study. | |Left Atrium: Normal left atrial appendage without evidence for thrombi. | |Right Ventricle: The right ventricle is normal in size measuring < 33 mm. | |Right Atrium: The right atrial size is normal. | |Right Atrium: Eustachian valve seen in the right atrium (normal finding). | |Interatrial Septum: Evidence for very small patent foramen ovale present by microcavitation study. | |Interatrial Septum: No shunt seen with color Doppler. | |Aortic Valve: The aortic valve is trileaflet, and appears structurally normal. No aortic st enosis or regurgitation. | |Aortic Valve: No vegetation visualized. | |Mitral Valve: The mitral valve is normal. | |Mitral Valve: There is trace mitral regurgitation. | |Mitral Valve: No vegetation was seen. | |Tricuspid Valve: The tricuspid valve appears structurally normal. Mild (physiologic) regurg itation. | |Tricuspid Valve: No vegetation visualized. | |Pulmonic Valve: The pulmonic valve was not well visualized. | | | |MEASUREMENTS | | | | | |Research Project Coordinator: JAIME | |Authenticated by: Dorina Varma MD | |Report Date/Time: 10-08-2014 21:45:59 | | | |IMPRESSION: | |1. No vegetation visualized. | |2. Evidence for very small patent foramen ovale present by microcavitation study. | + + Vancomycin, Trough (10/08/2014 3:25 PM PDT) + + + + + + | Component | Value | Ref Range | Performed | Pathologist | | | | | At | Signature | + + + + + + | Vancomycin | 14.8Comment: 15 to 20 | 10 - 20 ug/mL | EXTERNAL | | | Trough | ug/mL for meningitis, | | LAB | | | | osteomyelitis, | | | | | | endocarditis, sepsis, or | | | | | | healthcare associated | | | | | | pneumonia, or an RONEL | | | | | | equal to or greater than | | | | | | 1.0 ug/mLTesting | | | | | | performed at [facility];[address] | | | | | | [facility];[place], [place] | | | | | | [address] | | | | + + + + + + + + | Specimen | + + | Blood specimen | | (specimen) | + + + +---------+ + + | Performing | Address | City/State/Zipcode | Phone Number | | Organization | | | | + +---------+ + + | EXTERNAL LAB | | | | + +---------+ + + MRI Angiogram Head wo Contrast (10/08/2014 9:14 AM PDT) + + | Specimen | + + | | + + + + + | Impressions | Performed At | + + + | 1. Normal MRA of the cerebral arterial system. No stenosis, | | | occlusion, aneurysm or vasculitis noted. 2. Please note that the | | | splenial branches of the posterior cerebral arteries would be too | | | small to be resolved at 1.5 Jennie. | | + + + + + + | Narrative | Performed At | + + + | [facility] MRA HEAD WO CONTRAST 10/08/2014 9:14 AM HISTORY: | | | 24 years. Female. 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 History of intravenous drug use. TECHNIQUE: Imaging | | | was performed on a 1.5 Jennie MRI system. Multiplanar sequences were | | | acquired according to a standard department protocol without contrast. | | | A 3D pnfe-fc-nqqofy MRA sequence was acquired through the head. | | | Multiplanar angiographic MIP reconstructions from the MRA dataset | | | were performed. COMPARISON: MRI brain 10/07/2014 FINDINGS: | | | The visualized portions of the brain parenchyma on the source images | | | appear grossly normal. No hydrocephalus or extra-axial fluid | | | collection is noted. No intracranial mass is seen. MRA Distal | | | Internal Carotids: Right Internal carotid: Widely patent. Left | | | Internal carotid: Widely patent. Posterior Circulation: Vertebral | | | Dominance: Left. Right vertebral artery: Normal. Left vertebral | | | artery: Normal. Posterior inferior cerebellar arteries: Normal. | | | Anterior inferior cerebellar arteries: Normal. Basilar artery: | | | Normal. Superior cerebellar arteries: Normal. Right posterior | | | cerebral artery: Normal. Left posterior cerebral artery: Normal. | | | [place]: Anterior communicating artery: Normal. Right | | | posterior communicating artery: Normal. Left posterior communicating | | | artery: Normal. Anterior Circulation: Right Anterior cerebral | | | artery: A1 segment: Normal. A2 segment: Normal. Right MCA: M1 | | | segment: Normal. Post bifurcation M1 segment: Normal. M2 segments: | | | Normal. M3 segments: Normal. M4 segments: Normal. Left Anterior | | | cerebral artery: A1 segment: Normal. A2 segment: Normal. Left | | | MCA: M1 segment: Normal. Post bifurcation M1 segment: Normal. M2 | | | segments: Normal. M3 segments: Normal. M4 segments: Normal. | | + + + + + | Procedure Note | + + | Bishop, Rad Conversion - 01/04/2019 8:49 AM PDT [place] [facility] HEAD WO | | CONTRAST10/08/2014 9:14 AM HISTORY:24 years. Female. 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 History of intravenous drug use. TECHNIQUE:Imaging was | | performed on a 1.5 Jennie MRI system. Multiplanar sequences were acquired according to a | | standard department protocol without contrast. A 3D dkps-fo-zhyhiy MRA sequence was | | acquired through the head. Multiplanar angiographic MIP reconstructions from the MRA | | dataset were performed. COMPARISON:MRI brain 10/07/2014 FINDINGS: The visualized portions | | of the brain parenchyma on the source images appear grossly normal. No hydrocephalus | | or extra-axial fluid collection is noted. No intracranial mass is seen. MRADistal | | Internal Carotids:Right Internal carotid: Widely patent.Left Internal carotid: Widely | | patent. Posterior Circulation:Vertebral Dominance: Left.Right vertebral artery: | | Normal.Left vertebral artery: Normal.Posterior inferior cerebellar arteries: | | Normal.Anterior inferior cerebellar arteries: Normal.Basilar artery: Normal.Superior | | cerebellar arteries: Normal.Right posterior cerebral artery: Normal.Left posterior | | cerebral artery: Normal. [place]:Anterior communicating artery: Normal.Right | | posterior communicating artery: Normal.Left posterior communicating artery: Normal. | | Anterior Circulation:Right Anterior cerebral artery:A1 segment: Normal.A2 segment: | | Normal. Right MCA:M1 segment: Normal.Post bifurcation M1 segment: Normal.M2 segments: | | Normal.M3 segments: Normal.M4 segments: Normal. Left Anterior cerebral artery:A1 | | segment: Normal.A2 segment: Normal. Left MCA:M1 segment: Normal.Post bifurcation M1 | | segment: Normal.M2 segments: Normal.M3 segments: Normal.M4 segments: Normal. IMPRESSION: | | 1. Normal MRA of the cerebral arterial system. No stenosis, occlusion, aneurysm or | | vasculitis noted.2. Please note that the splenial branches of the posterior cerebral | | arteries would be too small to be resolved at 1.5 Jennie. | |Right vertebral artery: Normal. | |Left vertebral artery: Normal. | |Posterior inferior cerebellar arteries: Normal. | |Anterior inferior cerebellar arteries: Normal. | |Basilar artery: Normal. | |Superior cerebellar arteries: Normal. | |Right posterior cerebral artery: Normal. | |Left posterior cerebral artery: Normal. | | | |[place]: | |Anterior communicating artery: Normal. | |Right posterior communicating artery: Normal. | |Left posterior communicating artery: Normal. | | | |Anterior Circulation: | |Right Anterior cerebral artery: | |A1 segment: Normal. | |A2 segment: Normal. | | | |Right MCA: | |M1 segment: Normal. | |Post bifurcation M1 segment: Normal. | |M2 segments: Normal. | |M3 segments: Normal. | |M4 segments: Normal. | | | |Left Anterior cerebral artery: | |A1 segment: Normal. | |A2 segment: Normal. | | | |Left MCA: | |M1 segment: Normal. | |Post bifurcation M1 segment: Normal. | |M2 segments: Normal. | |M3 segments: Normal. | |M4 segments: Normal. | | | |IMPRESSION: | |1. Normal MRA of the cerebral arterial system. No stenosis, occlusion, aneurysm or vascul itis noted. | |2. Please note that the splenial branches of the posterior cerebral arteries would be too small to be resolved at 1.5 Jennie. | | | | | + + External Lab: KEVIN (10/08/2014 5:10 AM PDT) + + + + + + | Component | Value | Ref Range | Performed | Pathologist | | | | | At | Signature | + + + + + + | WBC | 17.41 (H)Comment: | 3.80 - 11.00 | EXTERNAL | | | | Testing performed at | K/uL | LAB | | | | [facility], [address] | | | | | | [place] | | | | | | [address] | | | | + + + + + + | Red Blood | 3.66 (L)Comment: Testing | 3.70 - 5.10 | EXTERNAL | | | Cells | performed at [facility], [address] | M/uL | LAB | | | Counted | [address], | | | | | | [place] [address] | | | | + + + + + + | Hemoglobin | 10.9 (L)Comment: Testing | 11.3 - 15.5 | EXTERNAL | | | | performed at [facility], [address] | g/dL | LAB | | | | [address], | | | | | | [place] [address] | | | | + + + + + + | Hematocrit, | 32.8 (L)Comment: Testing | 34.0 - 46.0 % | EXTERNAL | | | POC | performed at [facility], [address] | | LAB | | | | [address], | | | | | | [place] [address] | | | | + + + + + + | MCV | 89.6Comment: Testing | 80.0 - 100.0 fl | EXTERNAL | | | | performed at [facility], [address] | | LAB | | | | [address], | | | | | | [place], [place] [address] | | | | + + + + + + | MCH | 29.9Comment: Testing | 27.0 - 34.0 pg | EXTERNAL | | | | performed at [facility], [address] | | LAB | | | | [address], | | | | | | [place] [address] | | | | + + + + + + | MCHC | 33.3Comment: Testing | 32.0 - 35.5 | EXTERNAL | | | | performed at [facility], [address] | g/dL | LAB | | | | [address], | | | | | | [place] [address] | | | | + + + + + + | RDW-CV | 39.8Comment: Testing | 37 - 53 fl | EXTERNAL | | | | performed at [facility], [address] | | LAB | | | | [address], | | | | | | [place] [address] | | | | + + + + + + | Platelet | 420 (H)Comment: Testing | 150 - 400 K/uL | EXTERNAL | | | Count | performed at [facility], [address] | | LAB | | | Plasma | [address], | | | | | | [place] [address] | | | | + + + + + + | MPV | 7.9Comment: Testing | fl | EXTERNAL | | | | performed at [facility], [address] | | LAB | | | | [address], | | | | | | [place] [address] | | | | + + + + + + | Differentia | AUTOMATEDComment: | | EXTERNAL | | | l Type | Testing performed at | | LAB | | | | [facility], [address] [facility] | | | | | | [place] | | | | | | [address] | | | | + + + + + + | % Segmented | 68.47Comment: Testing | % | EXTERNAL | | | | performed at [facility], [address] | | LAB | | | Neutrophils | [address], | | | | | | [place] [address] | | | | + + + + + + | % | 15.86Comment: Testing | % | EXTERNAL | | | Lymphocytes | performed at [facility], [address] | | LAB | | | | [address], | | | | | | [place] [address] | | | | + + + + + + | % Monocytes | 13.16Comment: Testing | % | EXTERNAL | | | | performed at [facility], [address] | | LAB | | | | [address], | | | | | | [place] [address] | | | | + + + + + + | % | 1.80Comment: Testing | % | EXTERNAL | | | Eosinophils | performed at [facility], [address] | | LAB | | | | [address], | | | | | | [place] [address] | | | | + + + + + + | % Basophils | 0.71Comment: Testing | % | EXTERNAL | | | | performed at [facility], [address] | | LAB | | | | [address], | | | | | | [place] [address] | | | | + + + + + + | Absolute | 11.92 (H)Comment: | 1.90 - 7.40 | EXTERNAL | | | Segmented | Testing performed at | K/uL | LAB | | | Neutrophils | [facility], [address] | | | | | | [place] | | | | | | [address] | | | | + + + + + + | Absolute | 2.76Comment: Testing | 1.00 - 3.90 | EXTERNAL | | | Lymphocytes | performed at [facility], [address] | K/uL | LAB | | | | [address], | | | | | | [place] [address] | | | | + + + + + + | Absolute | 2.29 (H)Comment: Testing | 0.00 - 0.80 | EXTERNAL | | | Monocytes | performed at [facility], [address] | K[address] | LAB | | | | [address], | | | | | | [place] [address] | | | | + + + + + + | Absolute | 0.31Comment: Testing | 0.00 - 0.50 | EXTERNAL | | | Eosinophils | performed at [facility], [address] | K/uL | LAB | | | | [address], | | | | | | [place] [address] | | | | + + + + + + | Absolute | 0.12 (H)Comment: Testing | 0.00 - 0.10 | EXTERNAL | | | Basophils | performed at [facility], [address] | K/uL | LAB | | | | [address], | | | | | | [place] [address] | | | | + + + + + + + + | Specimen | + + | Blood specimen | | (specimen) | + + + +---------+ + + | Performing | Address | City/State/Zipcode | Phone Number | | Organization | | | | + +---------+ + + | EXTERNAL LAB | | | | + +---------+ + + Magnesium (10/08/2014 5:10 AM PDT) + + + + + + | Component | Value | Ref Range | Performed | Pathologist | | | | | At | Signature | + + + + + + | Magnesium | 1.6 (L)Comment: Testing | 1.7 - 2.4 mg/dL | EXTERNAL | | | | performed at [facility], [address] | | LAB | | | | [place], | | | | | | [place] [address] | | | | + + + + + + + + | Specimen | + + | Blood specimen | | (specimen) | + + + +---------+ + + | Performing | Address | City/State/Zipcode | Phone Number | | Organization | | | | + +---------+ + + | EXTERNAL LAB | | | | + +---------+ + + Lipid Panel (10/08/2014 5:10 AM PDT) + + + + + + | Component | Value | Ref Range | Performed | Pathologist | | | | | At | Signature | + + + + + + | Cholesterol | 89Comment: Testing | mg/dL | EXTERNAL | | | | performed at [facility], [address] | | LAB | | | | [address], | | | | | | [place] [address] | | | | + + + + + + | Triglycerid | 47Comment: Testing | mg/dL | EXTERNAL | | | es | performed at [facility], [address] | | LAB | | | | [address], | | | | | | [place] [address] | | | | + + + + + + | HDL | 36 (L)Comment: Testing | mg/dL | EXTERNAL | | | | performed at [facility], [address] | | LAB | | | | [address], | | | | | | [place] [address] | | | | + + + + + + | LDL, | 44Comment: Testing | mg/dL | EXTERNAL | | | Calculated | performed at [facility], [address] | | LAB | | | | [address], | | | | | | [place] [address] | | | | + + + + + + + + | Specimen | + + | Blood specimen | | (specimen) | + + + +---------+ + + | Performing | Address | City/State/Zipcode | Phone Number | | Organization | | | | + +---------+ + + | EXTERNAL LAB | | | | + +---------+ + + Basic Metabolic Panel (10/08/2014 5:10 AM PDT) + + + + + + | Component | Value | Ref Range | Performed | Pathologist | | | | | At | Signature | + + + + + + | Na | 135Comment: Testing | 135 - 143 | EXTERNAL | | | | performed at [facility], [address] | mmol/L | LAB | | | | [address], | | | | | | [place] [address] | | | | + + + + + + | K | 3.5Comment: Testing | 3.5 - 4.9 | EXTERNAL | | | | performed at [facility], [address] | mmol/L | LAB | | | | [address], | | | | | | [place] [address] | | | | + + + + + + | Cl | 102Comment: Testing | 99 - 109 mmol/L | EXTERNAL | | | | performed at [facility], [address] | | LAB | | | | [address], | | | | | | [place] [address] | | | | + + + + + + | CO2 | 26Comment: Testing | 23 - 32 mmol/L | EXTERNAL | | | | performed at [facility], [address] | | LAB | | | | [address], | | | | | | [place] [address] | | | | + + + + + + | Anion Gap | 11Comment: Testing | 5 - 20 mmol/L | EXTERNAL | | | | performed at [facility], [address] | | LAB | | | | [address], | | | | | | [place] [address] | | | | + + + + + + | Glucose, | 103 (H)Comment: Testing | 65 - 99 mg/dL | EXTERNAL | | | Fasting | performed at [facility], [address] | | LAB | | | | [address], | | | | | | [place] [address] | | | | + + + + + + | BUN | 4 (L)Comment: Testing | 8 - 25 mg/dL | EXTERNAL | | | | performed at [facility], [address] | | LAB | | | | [address], | | | | | | [place] [address] | | | | + + + + + + | Creatinine | 0.61Comment: Testing | 0.50 - 1.00 | EXTERNAL | | | | performed at [facility], [address] | mg/dL | LAB | | | | [address], | | | | | | [place] [address] | | | | + + + + + + | BUN/Creatin | 7Comment: Testing | | EXTERNAL | | | ine Ratio | performed at [facility], [address] | | LAB | | | | [address], | | | | | | [place] [address] | | | | + + + + + + | Calcium | 8.1 (L)Comment: Testing | 8.5 - 10.5 | EXTERNAL | | | | performed at [facility], [address] | mg/dL | LAB | | | | [address], | | | | | | [place] [address] | | | | + + + + + + | Estimated | >60Comment: GFR <60: | mL/min/1.73m2 | EXTERNAL | | | GFR | CHRONIC KIDNEY DISEASE, | | LAB | | | | IF FOUND OVER A 3 MONTH | | | | | | PERIOD.GFR <15: KIDNEY | | | | | | FAILURE.FOR | | | | | | AMERICANS, MULTIPLY THE | | | | | | CALCULATED GFR BY | | | | | | 1.210.Testing performed | | | | | | at [facility], [address] | | | | | | [address], | | | | | | [place] [address] | | | | + + + + + + + + | Specimen | + + | Blood specimen | | (specimen) | + + + +---------+ + + | Performing | Address | City/State/Zipcode | Phone Number | | Organization | | | | + +---------+ + + | EXTERNAL LAB | | | | + +---------+ + + Vancomycin, Trough (10/07/2014 11:27 PM PDT) + + + + + + | Component | Value | Ref Range | Performed | Pathologist | | | | | At | Signature | + + + + + + | Vancomycin | 17.4Comment: 15 to 20 | 10 - 20 ug/mL | EXTERNAL | | | Trough | ug/mL for meningitis, | | LAB | | | | osteomyelitis, | | | | | | endocarditis, sepsis, or | | | | | | healthcare associated | | | | | | pneumonia, or an RONEL | | | | | | equal to or greater than | | | | | | 1.0 ug/mLTesting | | | | | | performed at [facility] | | | | | | [facility];[place], [place] | | | | | | [address] | | | | + + + + + + + + | Specimen | + + | Blood specimen | | (specimen) | + + + +---------+ + + | Performing | Address | City/State/Zipcode | Phone Number | | Organization | | | | + +---------+ + + | EXTERNAL LAB | | | | + +---------+ + + Drugs Of ABuse Screen, Urine (H) (10/07/2014 9:07 PM PDT) + + + + + + | Component | Value | Ref Range | Performed | Pathologist | | | | | At | Signature | + + + + + + | Methampheta | NEGATIVEComment: | | EXTERNAL | | | mine/ | Positive cutoff for | | LAB | | | Amphetamine | AMP = 1000 ng/mLTesting | | | | | Screen, | performed at [facility];[address] | | | | | [address], P[address] | [address];[place], [place] | | | | | | [address] | | | | + + + + + + | Barbiturate | NEGATIVEComment: | | EXTERNAL | | | s Screen, | Positive cutoff for | | LAB | | | Urine | ROMY = 200 ng/mLTesting | | | | | | performed at [facility];[address] | | | | | | [address];[place] | | | | | | [address] | | | | + + + + + + | Benzodiazep | NEGATIVEComment: | | EXTERNAL | | | hanna | Positive cutoff for | | LAB | | | Screen, | BENZO = 200 ng/mLTesting | | | | | Urine | performed at [facility];[address] | | | | | | [address];[place] | | | | | | [address] | | | | + + + + + + | Cocaine | NEGATIVEComment: | | EXTERNAL | | | | Positive cutoff for | | LAB | | | | LOIS = 300 ng/mLTesting | | | | | | performed at [facility];[address] | | | | | | [address];[place] | | | | | | [address] | | | | + + + + + + | Methadone | NEGATIVEComment: | | EXTERNAL | | | | Positive cutoff for | | LAB | | | | MTD = 300 ng/mLTesting | | | | | | performed at [facility];[address] | | | | | | [address];[place] | | | | | | [address] | | | | + + + + + + | Opiates | POSITIVE (A)Comment: | | EXTERNAL | | | | Positive cutoff for | | LAB | | | | OPI = 300 ng/mLTesting | | | | | | performed at [facility];[address] | | | | | | [address];[place] | | | | | | [address] | | | | + + + + + + | PCP | NEGATIVEComment: | | EXTERNAL | | | | Positive cutoff for PCP | | LAB | | | | = 25 ng/mLTesting | | | | | | performed at [facility];[address] | | | | | | [address];[place] | | | | | | [address] | | | | + + + + + + | Cannabinoid | NEGATIVEComment: | | EXTERNAL | | | s Screen, | Positive cutoff for THC | | LAB | | | Serum | = 50 ng/mLThe above are | | | | | | unconfirmed screening | | | | | | results. These results | | | | | | are to be used only for | | | | | | medical | | | | | | (i.e.,treatment) | | | | | | purposes. Unconfirmed | | | | | | screening results must | | | | | | not be used for | | | | | | non-medical purposes | | | | | | (e.g., employment | | | | | | testing, legal | | | | | | testing).Testing | | | | | | performed at [facility] | | | | | | [facility];[place], [place] | | | | | | [address] | | | | + + + + + + + + | Specimen | + + | | + + + +---------+ + + | Performing | Address | City/State/Zipcode | Phone Number | | Organization | | | | + +---------+ + + | EXTERNAL LAB | | | | + +---------+ + + VAS Carotid Duplex Bilateral (10/07/2014 5:54 PM PDT) + + | Specimen | + + | | + + + + + | Impressions | Performed At | + + + | 1. There is 50-69% stenosis of the right internal carotid artery | | | distally. 2. No other areas of hemodynamically significant | | | stenosis. | | | 6:07 PM | | + + + + + + | Narrative | Performed At | + + + | HISTORY: CVA, fever of unknown origin. TECHNIQUE: Imaging was | | | performed with a linear array transducer. true duplex exam with | | | rubio scale, color flow and Doppler spectral analysis. COMPARISON: | | | None. FINDINGS: Right side: CCA-PROX | | | PSV(cm/s)140 EDV (cm/s)25 Grade (1-6)1 CCA-DIST | | | PSV(cm/s)100 EDV (cm/s)39 Grade (1-6)1 ICA-PROX | | | PSV(cm/s)70 EDV (cm/s)31 Grade (1-6)1 ICA-MID | | | PSV(cm/s)92 EDV (cm/s)41 Grade (1-6)1 ICA-DIST | | | PSV(cm/s)128 EDV (cm/s)55 Grade (1-6)3 ECA-PROX | | | PSV(cm/s)152 EDV (cm/s)44 Grade (1-6)1 Left side: | | | CCA-PROX PSV(cm/s)151 EDV (cm/s)40 Grade | | | (1-6)1 CCA-DIST PSV(cm/s)114 EDV (cm/s)47 Grade | | | (1-6)1 ICA-PROX PSV(cm/s)90 EDV (cm/s)41 Grade | | | (1-6)1 ICA-MID PSV(cm/s)105 EDV (cm/s)47 | | | Grade (1-6)1 ICA-DIST PSV(cm/s)100 EDV (cm/s)47 | | | Grade (1-6)1 ECA-PROX PSV(cm/s)153 EDV (cm/s)48 | | | Grade (1-6)1 There are normal peak systolic velocities within the | | | bilateral vertebral arteries with antegrade flow. Grades: 1 | | | Stenosis =01-50% PSV <125 cm/sec EDV (cm/s)<40 | | | cm/sec (mild plaque) 2 Stenosis =01-50% PSV <125 cm/sec | | | EDV (cm/s)<40 cm/sec (moderate plaque) 3 Stenosis | | | =50-69% PSV >125 cm/sec EDV (cm/s)>40 cm/sec 4 | | | Stenosis =70-95% PSV >230 cm/sec EDV (cm/s)>100 cm/sec 5 | | | Stenosis =90-95% PSV <125 cm/sec EDV (cm/s)<40 | | | cm/sec 6 Stenosis Occluded | | + + + + + | Procedure Note | + + | Bishop, Rad Conversion - 01/04/2019 8:49 AM PDT HISTORY:CVA, fever of unknown origin. | | TECHNIQUE:Imaging was performed with a linear array transducer. true duplex exam with | | rubio scale, color flow and Doppler spectral analysis. COMPARISON:None. FINDINGS:Right | | side: CCA-PROX PSV(cm/s)140 EDV (cm/s)25 Grade (1-6)1CCA-DIST | | PSV(cm/s)100 EDV (cm/s)39 Grade (1-6)1ICA-PROX PSV(cm/s)70 EDV (cm/s)31 | | Grade (1-6)1ICA-MID PSV(cm/s)92 EDV (cm/s)41 Grade (1-6)1ICA-DIST | | PSV(cm/s)128 EDV (cm/s)55 Grade (1-6)3ECA-PROX PSV(cm/s)152 EDV | | (cm/s)44 Grade (1-6)1 Left side: CCA-PROX PSV(cm/s)151 EDV (cm/s)40 | | Grade (1-6)1CCA-DIST PSV(cm/s)114 EDV (cm/s)47 Grade (1-6)1ICA-PROX | | PSV(cm/s)90 EDV (cm/s)41 Grade (1-6)1ICA-MID PSV(cm/s)105 EDV | | (cm/s)47 Grade (1-6)1ICA-DIST PSV(cm/s)100 EDV (cm/s)47 Grade | | (1-6)1ECA-PROX PSV(cm/s)153 EDV (cm/s)48 Grade (1-6)1 There are normal peak | | systolic velocities within the bilateral vertebral arteries with antegrade flow. | | Grades:1 Stenosis =01-50% PSV <125 cm/sec EDV (cm/s)<40 cm/sec (mild | | plaque)2 Stenosis =01-50% PSV <125 cm/sec EDV (cm/s)<40 cm/sec (moderate | | plaque)3 Stenosis =50-69% PSV >125 cm/sec EDV (cm/s)>40 cm/sec4 | | Stenosis =70-95% PSV >230 cm/sec EDV (cm/s)>100 cm/sec5 Stenosis =90-95% | | PSV <125 cm/sec EDV (cm/s)<40 cm/sec6 Stenosis Occluded IMPRESSION: 1. There | | is 50-69% stenosis of the right internal carotid artery distally.2. No other areas of | | hemodynamically significant stenosis. Electronically signed by Hossein Zaldivar MD on | | 10/07/2014 6:07 PM | |Left side: | | | | | |CCA-PROX PSV(cm/s)151 EDV (cm/s)40 Grade (1-6)1 | |CCA-DIST PSV(cm/s)114 EDV (cm/s)47 Grade (1-6)1 | |ICA-PROX PSV(cm/s)90 EDV (cm/s)41 Grade (1-6)1 | |ICA-MID PSV(cm/s)105 EDV (cm/s)47 Grade (1-6)1 | |ICA-DIST PSV(cm/s)100 EDV (cm/s)47 Grade (1-6)1 | |ECA-PROX PSV(cm/s)153 EDV (cm/s)48 Grade (1-6)1 | | | |There are normal peak systolic velocities within the bilateral vertebral arteries with ante grade flow. | | | | | |Grades: | |1 Stenosis =01-50% PSV <125 cm/sec EDV (cm/s)<40 cm/sec (mild plaque) | |2 Stenosis =01-50% PSV <125 cm/sec EDV (cm/s)<40 cm/sec (moderate plaque) | |3 Stenosis =50-69% PSV >125 cm/sec EDV (cm/s)>40 cm/sec | |4 Stenosis =70-95% PSV >230 cm/sec EDV (cm/s)>100 cm/sec | |5 Stenosis =90-95% PSV <125 cm/sec EDV (cm/s)<40 cm/sec | |6 Stenosis Occluded | | | |IMPRESSION: | |1. There is 50-69% stenosis of the right internal carotid artery distally. | |2. No other areas of hemodynamically significant stenosis. | | | | | + + ECHO Complete (10/07/2014 3:45 PM PDT) + + | Specimen | + + | | + + + + + | Impressions | Performed At | + + + | 1. Overall left ventricular systolic function is mildly impaired | | | with, an EF between 45 - 50 %. 2. no obvious veg. | | + + + + + + | Narrative | Performed At | + + + | Patient Name: KAT SPENCER Date of : 1990 | | | Performing Physician: Chaitanya Coronado MD, | | | FACC, FACP, FASNC | | | | | | INDICATIONS R/O: Endocarditis CONCLUSIONS | | | 1. Overall left ventricular systolic function is mildly | | | impaired with, an EF between 45 - 50 %. 2. no obvious veg. | | | FINDINGS -------- ECG rhythm: Sinus rhythm. Study: A 2-dimensional | | | transthoracic echocardiogram with m-mode, spectral and color flow | | | Doppler was perfomed. Study: This was a technically adequate study. | | | Left Ventricle: Overall left ventricular systolic function is mildly | | | impaired with, an EF between 45 - 50 %. Right Ventricle: The right | | | ventricle is normal in size. Left Atrium: The left atrium is normal | | | in size. Right Atrium: The right atrium is normal in size. Aortic | | | Valve: The aortic valve is trileaflet, and appears anatomically | | | normal. No aortic stenosis or regurgitation. Mitral Valve: Normal | | | appearing mitral valve. Mitral Valve: Mild mitral regurgitation is | | | present. Tricuspid Valve: The tricuspid valve appears structurally | | | normal. Tricuspid Valve: Mild tricuspid regurgitation present. | | | Tricuspid Valve: Right ventricular systolic pressure (pulmonary artery | | | systolic pressure) is normal at < 35 mmHg. Pulmonic Valve: Pulmonic | | | valve appears structurally normal. Pulmonic Valve: Trace pulmonic | | | regurgitation. Pericardium: There is no pericardial effusion. | | | Pericardium: Pleural effusion present. IVC/Hepatic Veins: The IVC is | | | small (<1.5cm) and collapses with sniff, consistent with central | | | venous pressures of 0-5mmHg. Mass: No mass visualized | | | MEASUREMENTS IVC: 1.29 cm LA Major: 3.78 cm | | | EDV(Teich): 95.21 ml IVSd: 0.89 cm LVIDd: 4.55 cm LVPWd: | | | 0.83 cm LVOT Diam: 1.98 cm %FS: 32.15 % EF(Teich): | | | 60.43 % ESV(Teich): 37.67 ml IVSs: 0.86 cm LVIDs: 3.09 cm | | | LVPWs: 1.63 cm SV(Teich): 57.54 ml RA Major: 4.34 cm | | | RVIDd: 3.00 cm LAESV(A-L): 33.96 ml LAESV Index (A-L): | | | 17.07 ml/m2 LAAs A2C: 14.36 cm2 LAESV A-L A2C: 40.15 ml LAESV | | | MOD A2C: 36.70 ml LALs A2C: 4.36 cm LAAs A4C: 12.15 cm2 | | | LAESV A-L A4C: 27.59 ml LAESV MOD A4C: 22.57 ml LALs A4C: | | | 4.54 cm Ao Diam: 2.79 cm AV Cusp: 2.15 cm LA Diam: 3.49 cm | | | LA/Ao: 1.25 %FS: 32.16 % EDV(Teich): 108.67 ml | | | EF(Teich): 60.24 % ESV(Teich): 43.20 ml IVSd: 0.78 cm | | | IVSs: 1.29 cm LVIDd: 4.82 cm LVIDs: 3.27 cm LVPWd: 0.76 | | | cm LVPWs: 1.46 cm SV(Teich): 65.47 ml D-E Excursion: 2.53 | | | cm E-F [place]: 0.12 m/s HR: 88.02 BPM AV maxP.15 mmHg | | | AV meanP.87 mmHg AV Vmax: 1.42 m/s AV Vmean: 1.05 m/s | | | AV VTI: 27.43 cm BRANDY Vmax: 2.09 cm2 BRANDY (VTI): 2.06 cm2 | | | LVCI Dopp: 2.28 l/minm2 LVCO Dopp: 4.55 l/min HR: 80.27 BPM | | | LVOT maxP.76 mmHg LVOT meanP.10 mmHg LVSI Dopp: | | | 28.48 ml/m2 LVSV Dopp: 56.68 ml LVOT Vmax: 0.96 m/s LVOT | | | Vmean: 0.68 m/s LVOT VTI: 18.37 cm MR maxP.05 mmHg MR | | | Vmax: 2.74 m/s MV A Caden: 0.36 m/s MV DecT: 139.08 ms MV E | | | Caden: 0.92 m/s MV E/A Ratio: 2.52 MV PHT: 42.52 ms MVA By | | | PHT: 5.17 cm2 MV A Dur: 121.10 ms Septal e': 0.16 m/s | | | Septal E/e': 5.68 Lateral e': 0.22 m/s Lateral E/e': 4.08 | | | P Vein A: 0.26 m/s P Vein A Dur: 100.34 ms P Vein D: 0.34 | | | m/s P Vein S/D Ratio: 1.71 P Vein S: 0.58 m/s PAEDP: 6.52 | | | mmHg PRend P.52 mmHg PRend Vmax: 0.61 m/s HR: 91.26 | | | BPM PV maxP.51 mmHg PV meanP.98 mmHg PV Vmax: 0.93 | | | m/s PV Vmean: 0.66 m/s PV VTI: 21.23 cm RAP: 5 mmHg | | | RVSP: 20.01 mmHg TR maxP.01 mmHg TR Vmax: 1.92 m/s TV | | | maxP.71 mmHg TV meanP.68 mmHg TV Vmax: 0.65 m/s | | | TV Vmean: 0.37 m/s TV VTI: 15.39 cm Research Project Coordinator: | | | Authenticated by: Chaitanya Coronado MD, FACC, FACP, FASMD Report | | | Date/Time: -- [id number] | | + + + + + | Procedure Note | + + | Sylvain Alas Conversion - 01/04/2019 8:49 AM PDT Patient Name: Fili SPENCER of | | : 1990 Performing Physician: Chaitanya Coronado MD, [facility], | | FACP, | | FASNC INDICATIONS--------- | | --R/O: Endocarditis CONCLUSIONS 1. Overall left ventricular systolic function | | is mildly impaired with, an EF between 45 - 50 %. 2. no obvious veg. | | FINDINGS--------ECG rhythm: Sinus rhythm.Study: A 2-dimensional transthoracic | | echocardiogram with m-mode, spectral and color flow Doppler was perfomed.Study: This was | | a technically adequate study.Left Ventricle: Overall left ventricular systolic function | | is mildly impaired with, an EF between 45 - 50 %.Right Ventricle: The right ventricle | | is normal in size.Left Atrium: The left atrium is normal in size.Right Atrium: The right | | atrium is normal in size.Aortic Valve: The aortic valve is trileaflet, and appears | | anatomically normal. No aortic stenosis or regurgitation.Mitral Valve: Normal appearing | | mitral valve.Mitral Valve: Mild mitral regurgitation is present.Tricuspid Valve: The | | tricuspid valve appears structurally normal.Tricuspid Valve: Mild tricuspid | | regurgitation present.Tricuspid Valve: Right ventricular systolic pressure (pulmonary | | artery systolic pressure) is normal at < 35 mmHg.Pulmonic Valve: Pulmonic valve appears | | structurally normal.Pulmonic Valve: Trace pulmonic regurgitation.Pericardium: There is | | no pericardial effusion.Pericardium: Pleural effusion present.IVC/Hepatic Veins: The IVC | | is small (<1.5cm) and collapses with sniff, consistent with central venous pressures of | | 0-5mmHg.Mass: No mass visualized MEASUREMENTS IVC: 1.29 cmLA Major: | | 3.78 cmEDV(Teich): 95.21 mlIVSd: 0.89 cmLVIDd: 4.55 cmLVPWd: 0.83 cmLVOT Diam: | | 1.98 cm%FS: 32.15 %EF(Teich): 60.43 %ESV(Teich): 37.67 mlIVSs: 0.86 cmLVIDs: | | 3.09 cmLVPWs: 1.63 cmSV(Teich): 57.54 mlRA Major: 4.34 cmRVIDd: 3.00 | | cmLAESV(A-L): 33.96 mlLAESV Index (A-L): 17.07 ml/m2LAAs A2C: 14.36 [id number] A-L | | A2C: 40.15 mlLAESV MOD A2C: 36.70 mlLALs A2C: 4.36 cmLAAs A4C: 12.15 [id number] | | A-L A4C: 27.59 mlLAESV MOD A4C: 22.57 mlLALs A4C: 4.54 cmAo Diam: 2.79 cmAV | | Cusp: 2.15 cmLA Diam: 3.49 cmLA/Ao: 1.25%FS: 32.16 %EDV(Teich): 108.67 | | mlEF(Teich): 60.24 %ESV(Teich): 43.20 mlIVSd: 0.78 cmIVSs: 1.29 cmLVIDd: 4.82 | | cmLVIDs: 3.27 cmLVPWd: 0.76 cmLVPWs: 1.46 cmSV(Teich): 65.47 mlD-E Excursion: | | 2.53 cmE-F [place]: 0.12 m/sHR: 88.02 BPMAV maxP.15 mmHgAV meanP.87 mmHgAV | | Vmax: 1.42 m/Jeryr Vmean: 1.05 m/Jerry VTI: 27.43 cmAVA Vmax: 2.09 cm2AVA (VTI): | | 2.06 [id number] Dopp: 2.28 l/cgqg5CVGW Dopp: 4.55 l/minHR: 80.27 BPMLVOT maxPG: | | 3.76 mmHgLVOT meanP.10 mmHgLVSI Dopp: 28.48 ml/m2LVSV Dopp: 56.68 mlLVOT Vmax: | | 0.96 m/sLVOT Vmean: 0.68 m/sLVOT VTI: 18.37 cmMR maxP.05 mmHgMR Vmax: | | 2.74 m/sMV A Caden: 0.36 m/sMV DecT: 139.08 msMV E Caden: 0.92 m/sMV E/A Ratio: | | 2.52MV PHT: 42.52 msMVA By PHT: 5.17 cm2MV A Dur: 121.10 msSeptal e': 0.16 | | m/sSeptal E/e': 5.68Lateral e': 0.22 m/sLateral E/e': 4.08P Vein A: 0.26 m/sP | | Vein A Dur: 100.34 msP Vein D: 0.34 m/sP Vein S/D Ratio: 1.71P Vein S: 0.58 | | m/sPAEDP: 6.52 mmHgPRend P.52 mmHgPRend Vmax: 0.61 m/sHR: 91.26 BPMPV maxPG: | | 3.51 mmHgPV meanP.98 mmHgPV Vmax: 0.93 m/sPV Vmean: 0.66 m/sPV VTI: 21.23 | | cmRAP: 5 mmHgRVSP: 20.01 mmHgTR maxP.01 mmHgTR Vmax: 1.92 m/sTV maxPG: | | 1.71 mmHgTV meanP.68 mmHgTV Vmax: 0.65 m/sTV Vmean: 0.37 m/sTV VTI: 15.39 cm | | Research Project Coordinator: ASAuthenticated by: Chaitanya Coronado MD, FACC, FACP, FASNCReport Date/Time: | | -- [id number] IMPRESSION: 1. Overall left ventricular systolic function is | | mildly impaired with, an EF between 45 - 50 %. 2. no obvious veg. | |LVOT Diam: 1.98 cm | |%FS: 32.15 % | |EF(Teich): 60.43 % | |ESV(Teich): 37.67 ml | |IVSs: 0.86 cm | |LVIDs: 3.09 cm | |LVPWs: 1.63 cm | |SV(Teich): 57.54 ml | |RA Major: 4.34 cm | |RVIDd: 3.00 cm | |LAESV(A-L): 33.96 ml | |LAESV Index (A-L): 17.07 ml/m2 | |LAAs A2C: 14.36 cm2 | |LAESV A-L A2C: 40.15 ml | |LAESV MOD A2C: 36.70 ml | |LALs A2C: 4.36 cm | |LAAs A4C: 12.15 cm2 | |LAESV A-L A4C: 27.59 ml | |LAESV MOD A4C: 22.57 ml | |LALs A4C: 4.54 cm | |Ao Diam: 2.79 cm | |AV Cusp: 2.15 cm | |LA Diam: 3.49 cm | |LA/Ao: 1.25 | |%FS: 32.16 % | |EDV(Teich): 108.67 ml | |EF(Teich): 60.24 % | |ESV(Teich): 43.20 ml | |IVSd: 0.78 cm | |IVSs: 1.29 cm | |LVIDd: 4.82 cm | |LVIDs: 3.27 cm | |LVPWd: 0.76 cm | |LVPWs: 1.46 cm | |SV(Teich): 65.47 ml | |D-E Excursion: 2.53 cm | |E-F [place]: 0.12 m/s | |HR: 88.02 BPM | |AV maxP.15 mmHg | |AV meanP.87 mmHg | |AV Vmax: 1.42 m/s | |AV Vmean: 1.05 m/s | |AV VTI: 27.43 cm | |BRANDY Vmax: 2.09 cm2 | |BRANDY (VTI): 2.06 cm2 | |LVCI Dopp: 2.28 l/minm2 | |LVCO Dopp: 4.55 l/min | |HR: 80.27 BPM | |LVOT maxP.76 mmHg | |LVOT meanP.10 mmHg | |LVSI Dopp: 28.48 ml/m2 | |LVSV Dopp: 56.68 ml | |LVOT Vmax: 0.96 m/s | |LVOT Vmean: 0.68 m/s | |LVOT VTI: 18.37 cm | |MR maxP.05 mmHg | |MR Vmax: 2.74 m/s | |MV A Caden: 0.36 m/s | |MV DecT: 139.08 ms | |MV E Caden: 0.92 m/s | |MV E/A Ratio: 2.52 | |MV PHT: 42.52 ms | |MVA By PHT: 5.17 cm2 | |MV A Dur: 121.10 ms | |Septal e': 0.16 m/s | |Septal E/e': 5.68 | |Lateral e': 0.22 m/s | |Lateral E/e': 4.08 | |P Vein A: 0.26 m/s | |P Vein A Dur: 100.34 ms | |P Vein D: 0.34 m/s | |P Vein S/D Ratio: 1.71 | |P Vein S: 0.58 m/s | |PAEDP: 6.52 mmHg | |PRend P.52 mmHg | |PRend Vmax: 0.61 m/s | |HR: 91.26 BPM | |PV maxP.51 mmHg | |PV meanP.98 mmHg | |PV Vmax: 0.93 m/s | |PV Vmean: 0.66 m/s | |PV VTI: 21.23 cm | |RAP: 5 mmHg | |RVSP: 20.01 mmHg | |TR maxP.01 mmHg | |TR Vmax: 1.92 m/s | |TV maxP.71 mmHg | |TV meanP.68 mmHg | |TV Vmax: 0.65 m/s | |TV Vmean: 0.37 m/s | |TV VTI: 15.39 cm | | | |Research Project Coordinator: | |Authenticated by: Chaitanya Coronado MD, FAC, FACP, [facility] | |Report Date/Time: -- [id number]:23 | | | |IMPRESSION: | |1. Overall left ventricular systolic function is mildly impaired with, an EF between 45 - 5 0 %. 2. no obvious veg. | + + HISTORICAL MICROBIOLOGY RESULT (10/07/2014 2:40 PM PDT) + + | Specimen | + + | Stool specimen | | (specimen) | + + + + + | Narrative | Performed At | + + + | Toxigenic C Difficile NEGATIVE Testing | EXTERNAL LAB | | performed at [facility];[address];[place] [address] 027 NAP1 BI | | | 027 NAP1 BI PRESUMPTIVE NEGATIVE | | | Detection of 027 NAP1 BI strains of C. difficile is presumptive and | | | for epidemiological purposes and not intended to guide or monitor | | | treatment for C. difficile infections. Testing performed at [facility];[address] | | | [facility];[place] [address] | | + + + + +---------+ + + | Performing | Address | City/State/Zipcode | Phone Number | | Organization | | | | + +---------+ + + | EXTERNAL LAB | | | | + +---------+ + + MRI Brain wo Contrast (10/07/2014 1:07 PM PDT) + + | Specimen | + + | | + + + + | Addenda | + + | Addendum by Eh Vences DO on 10/07/2014 3:25 PM Findings were reported to | | Dr. Davin Purcell by telephone at 10/07/2014 3:15 PM. Clinically, isolated corpus | | callosum infarcts are associated with neuropsychiatric symptoms, mainly | | interhemispheric disconnection syndromes. Patients may experience gait disorders, | | apraxia, agraphia, tactile anomia, alien hand syndrome. Consultation with neurology | | is recommended. | + + + + + | Impressions | Performed At | + + + | 1. 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 This would be due to occlusion of the splenial branch of one | | | of the posterior cerebral arteries. 2. No other infarcts are | | | identified. 3. Otherwise normal MRI examination of the brain. | | | | | + + + + + + | Narrative | Performed At | + + + | [facility] BRAIN WO CONTRAST 10/07/2014 1:07 PM HISTORY: | | | 24 years. Female. Headaches. Fever of unknown origin. Assess | | | for stroke. TECHNIQUE: Imaging was performed on a 1.5 Jennie MRI | | | system. Multiplanar sequences were acquired according to a standard | | | department protocol without contrast. COMPARISON: None. 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 This would be due to acute occlusion of the splenial branch | | | of one of the posterior cerebral artery. The fact that it appears | | | predominantly midline and symmetric suggests that there may be a | | | dominant splenial vessel arising from either the right or the left | | | posterior cerebral artery in this patient. No other infarcts are | | | identified. The brain parenchyma is otherwise normal in signal | | | intensity. There is no evidence for hemorrhagic transformation of | | | the infarct. The ventricles, cisterns and sulci are normal in size | | | and configuration. No extraaxial fluid collections are noted. The | | | midline structures including the corpus callosum, robina, cerebellar | | | vermis, pineal gland and pituitary are normal. No masses are seen | | | in the region of the cerebellopontine angles or internal auditory | | | canals. The orbits and their contents are normal. The paranasal | | | sinuses are well aerated. No air-fluid levels or mucosal thickening | | | is noted. No fluid seen in the mastoids. The osseous structures | | | of the calvaria and upper cervical spine demonstrate normal bone | | | marrow signal intensity. The soft tissues of the oropharynx and | | | upper neck appear normal on the sagittal sequences. The intracranial | | | arteries demonstrate normal flow voids on the T2 sequence. No | | | large aneurysm is noted. The dural venous sinuses also demonstrate | | | normal flow-voids. | | + + + + + | Procedure Note | + + | Sylvain Alas Conversion - 01/04/2019 8:49 AM [facility] | | CONTRAST10/07/2014 1:07 PM HISTORY:24 years. Female. Headaches. Fever of unknown | | origin. Assess for stroke. TECHNIQUE:Imaging was performed on a 1.5 Jennie MRI system. | | Multiplanar sequences were acquired according to a standard department protocol without | | contrast. COMPARISON:None. FINDINGS:Isolated infarct of the splenium of the corpus | | callosum is noted. This would be due to acute occlusion of the splenial branch of one | | of the posterior cerebral artery. The fact that it appears predominantly midline and | | symmetric suggests that there may be a dominant splenial vessel arising from either the | | right or the left posterior cerebral artery in this patient. No other infarcts are | | identified. The brain parenchyma is otherwise normal in signal intensity. There is no | | evidence for hemorrhagic transformation of the infarct. The ventricles, cisterns and | | sulci are normal in size and configuration. No extraaxial fluid collections are noted. | | The midline structures including the corpus callosum, robina, cerebellar vermis, pineal | | gland and pituitary are normal. No masses are seen in the region of the | | cerebellopontine angles or internal auditory canals. The orbits and their contents are | | normal. The paranasal sinuses are well aerated. No air-fluid levels or mucosal | | thickening is noted. No fluid seen in the mastoids. The osseous structures of the | | calvaria and upper cervical spine demonstrate normal bone marrow signal intensity. The | | soft tissues of the oropharynx and upper neck appear normal on the sagittal sequences. | | The intracranial arteries demonstrate normal flow voids on the T2 sequence. No large | | aneurysm is noted. The dural venous sinuses also demonstrate normal flow-voids. | | IMPRESSION: 1. 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 | | This would be due to occlusion of the splenial branch of one of the posterior cerebral | | arteries.2. No other infarcts are identified.3. Otherwise normal MRI examination of | | the brain. | |IMPRESSION: | |1. 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 This would be due to occlusion of the splenial branch of one of the posterior cerebral arteries. | |2. No other infarcts are identified. | |3. Otherwise normal MRI examination of the brain. | | | | | + + CT Abdomen Pelvis w Contrast (10/07/2014 8:30 AM PDT) + + | Specimen | + + | | + + + + + | Impressions | Performed At | + + + | 1. Findings suggest pyelonephritis of the left kidney lower pole. | | | Correlate clinically. 2. Prominent periaortic lymph nodes, probably | | | reactive. 3. Multi-follicular ovaries and minimal free fluid in | | | the pelvis. Electronically signed by Marc Madsen MD on | | | 10/07/2014 8:48 AM | | + + + + + + | Narrative | Performed At | + + + | KAT SPENCER CT ABDOMEN PELVIS W CONTRAST 10/07/2014 8:30 AM | | | HISTORY: Abdominal pain and fever. TECHNIQUE: 5 mm axial | | | sections were obtained through the abdomen and pelvis with IV | | | contrast. Oral contrast was withheld due to clinician order. | | | FINDINGS: No prior comparison. There is subtle decreased | | | enhancement in the lower pole of the left kidney with adjacent | | | perinephric edema, suggesting pyelonephritis. Please correlate | | | clinically. No evidence of hydronephrosis. There is probable focal | | | fatty infiltration the liver adjacent to the fissure for ligamentum | | | teres. Spleen appears unremarkable. No peripancreatic fluid or edema | | | to suggest pancreatitis. No signs of bile duct dilatation. There | | | are a few normal sized periaortic lymph nodes, probably reactive. The | | | appendix could not be visualized with this technique. No signs of | | | diverticulitis noted. Ovaries are prominent bilaterally, probably | | | multifocal tumor. There is minimal free fluid in the pelvis. | | + + + + + | Procedure Note | + + | Bishop, Rad Conversion - 01/04/2019 8:49 AM PDT [facility] ABDOMEN PELVIS W | | CONTRAST10/07/2014 8:30 AM HISTORY:Abdominal pain and fever. TECHNIQUE:5 mm axial | | sections were obtained through the abdomen and pelvis with IV contrast. Oral contrast | | was withheld due to clinician order. FINDINGS:No prior comparison. There is subtle | | decreased enhancement in the lower pole of the left kidney with adjacent perinephric | | edema, suggesting pyelonephritis. Please correlate clinically. No evidence of | | hydronephrosis. There is probable focal fatty infiltration the liver adjacent to the | | fissure for ligamentum teres. Spleen appears unremarkable. No peripancreatic fluid or | | edema to suggest pancreatitis. No signs of bile duct dilatation. There are a few normal | | sized periaortic lymph nodes, probably reactive. The appendix could not be visualized | | with this technique. No signs of diverticulitis noted. Ovaries are prominent | | bilaterally, probably multifocal tumor. There is minimal free fluid in the pelvis. | | IMPRESSION: 1. Findings suggest pyelonephritis of the left kidney lower pole. Correlate | | clinically.2. Prominent periaortic lymph nodes, probably reactive.3. Multi-follicular | | ovaries and minimal free fluid in the pelvis. | | | |There are a few normal sized periaortic lymph nodes, probably reactive. The appendix could not be visualized with this technique. No signs of diverticulitis noted. Ovaries are promine nt bilaterally, probably | |multifocal tumor. There is minimal free fluid | |in the pelvis. | | | |IMPRESSION: | |1. Findings suggest pyelonephritis of the left kidney lower pole. Correlate clinically. | |2. Prominent periaortic lymph nodes, probably reactive. | |3. Multi-follicular ovaries and minimal free fluid in the pelvis. | | | | | + + Culture, Blood, 2nd Specimen (10/07/2014 7:58 AM PDT) + + | Specimen | + + | Blood specimen | | (specimen) | + + + + + | Narrative | Performed At | + + + | Specimen Description BLOOD SPECIAL | EXTERNAL LAB | | REQUESTS LT AC | | | Testing performed at [facility];[address] | | | [address];[place] [address] CULTURE | | | NO GROWTH | | | Testing performed at [facility], [address] [place], [place] | | | [address] | | + + + + +---------+ + + | Performing | Address | City/State/Zipcode | Phone Number | | Organization | | | | + +---------+ + + | EXTERNAL LAB | | | | + +---------+ + + Culture, Blood (10/07/2014 7:50 AM PDT) + + | Specimen | + + | Blood specimen | | (specimen) | + + + + + | Narrative | Performed At | + + + | Specimen Description BLOOD SPECIAL | EXTERNAL LAB | | REQUESTS RT AC | | | Testing performed at [facility];[address];[place] [address] CULTURE | | | NO GROWTH | | | Testing performed at [facility], [address] [place], [place] | | | [address] | | + + + + +---------+ + + | Performing | Address | City/State/Zipcode | Phone Number | | Organization | | | | + +---------+ + + | EXTERNAL LAB | | | | + +---------+ + + External Lab: KEVIN (10/07/2014 5:37 AM PDT) + + + + + + | Component | Value | Ref Range | Performed | Pathologist | | | | | At | Signature | + + + + + + | WBC | 19.52 (H)Comment: | 3.80 - 11.00 | EXTERNAL | | | | Testing performed at | K/uL | LAB | | | | [facility], [address] | | | | | | [place] | | | | | | [address] | | | | + + + + + + | Red Blood | 3.82Comment: Testing | 3.70 - 5.10 | EXTERNAL | | | Cells | performed at [facility], [address] | M/uL | LAB | | | Counted | [place], | | | | | | [place] [address] | | | | + + + + + + | Hemoglobin | 11.5Comment: Testing | 11.3 - 15.5 | EXTERNAL | | | | performed at [facility], [address] | g/dL | LAB | | | | [place], | | | | | | [place] [address] | | | | + + + + + + | Hematocrit, | 34.3Comment: Testing | 34.0 - 46.0 % | EXTERNAL | | | POC | performed at [facility], [address] | | LAB | | | [address], | | | | | | [place] [address] | | | | + + + + + + | MCV | 89.8Comment: Testing | 80.0 - 100.0 fl | EXTERNAL | | | | performed at [facility], [address] | | LAB | | | | [address], | | | | | | [place] [address] | | | | + + + + + + | MCH | 30.2Comment: Testing | 27.0 - 34.0 pg | EXTERNAL | | | | performed at [facility], [address] | | LAB | | | | [address], | | | | | | [place] [address] | | | | + + + + + + | MCHC | 33.7Comment: Testing | 32.0 - 35.5 | EXTERNAL | | | | performed at [facility], [address] | g/dL | LAB | | | | [address], | | | | | | [place] [address] | | | | + + + + + + | RDW-CV | 38.5Comment: Testing | 37 - 53 fl | EXTERNAL | | | | performed at [facility], [address] | | LAB | | | | [address], | | | | | | [place] [address] | | | | + + + + + + | Platelet | 380Comment: Testing | 150 - 400 K/uL | EXTERNAL | | | Count | performed at [facility], [address] | | LAB | | | Plasma | [address], | | | | | | [place] [address] | | | | + + + + + + | MPV | 8.1Comment: Testing | fl | EXTERNAL | | | | performed at [facility], [address] | | LAB | | | | [address], | | | | | | [place] [address] | | | | + + + + + + | Differentia | MANUALComment: Testing | | EXTERNAL | | | l Type | performed at [facility], [address] | | LAB | | | | [address], | | | | | | [place] [address] | | | | + + + + + + | Segmented | 69Comment: Testing | % | EXTERNAL | | | Neutrophils | performed at [facility], [address] | | LAB | | | Manual | [address], | | | | | | [place] [address] | | | | + + + + + + | % Bands | 4Comment: Testing | % | EXTERNAL | | | | performed at [facility], [address] | | LAB | | | | [address], | | | | | | [place] [address] | | | | + + + + + + | Lymphocytes | 15Comment: Testing | % | EXTERNAL | | | Manual | performed at [facility], [address] | | LAB | | | | [address], | | | | | | [place] [address] | | | | + + + + + + | Monocytes | 12Comment: Testing | % | EXTERNAL | | | Manual | performed at [facility], [address] | | LAB | | | | [address], | | | | | | [place] [address] | | | | + + + + + + | Absolute | 13.47 (H)Comment: | 1.90 - 7.40 | EXTERNAL | | | Neutrophils | Testing performed at | K/uL | LAB | | | | [facility], [address] | | | | | | [place] | | | | | | [address] | | | | + + + + + + | Bands | 0.78 (H)Comment: Testing | 0.00 - 0.20 | EXTERNAL | | | Manual | performed at [facility], [address] | [address] | LAB | | | | [address], | | | | | | [place] [address] | | | | + + + + + + | Absolute | 2.93Comment: Testing | 1.00 - 3.90 | EXTERNAL | | | Lymphocytes | performed at [facility], [address] | K/uL | LAB | | | | [address], | | | | | | [place] [address] | | | | + + + + + + | Absolute | 2.34 (H)Comment: Testing | 0.00 - 0.80 | EXTERNAL | | | Monocytes | performed at [facility], [address] | [address] | LAB | | | | [address], | | | | | | [place] [address] | | | | + + + + + + | RBC | RBC AND PLT MORPHOLOGY | | EXTERNAL | | | Morphology | APPEAR NORMALComment: | | LAB | | | | Testing performed at | | | | | | [facility], [address] | | | | | | [place] | | | | | | [address] | | | | + + + + + + + + | Specimen | + + | Blood specimen | | (specimen) | + + + +---------+ + + | Performing | Address | City/State/Zipcode | Phone Number | | Organization | | | | + +---------+ + + | EXTERNAL LAB | | | | + +---------+ + + Phosphorus (10/07/2014 5:37 AM PDT) + + + + + + | Component | Value | Ref Range | Performed | Pathologist | | | | | At | Signature | + + + + + + | PHOSPHORUS | 2.8Comment: Testing | 2.3 - 4.8 mg/dL | EXTERNAL | | | | performed at [facility], [address] | | LAB | | | | [address], | | | | | | [place] [address] | | | | + + + + + + + + | Specimen | + + | Blood specimen | | (specimen) | + + + +---------+ + + | Performing | Address | City/State/Zipcode | Phone Number | | Organization | | | | + +---------+ + + | EXTERNAL LAB | | | | + +---------+ + + Magnesium (10/07/2014 5:37 AM PDT) + + + + + + | Component | Value | Ref Range | Performed | Pathologist | | | | | At | Signature | + + + + + + | Magnesium | 1.7Comment: Testing | 1.7 - 2.4 mg/dL | EXTERNAL | | | | performed at [facility], [address] | | LAB | | | | [address], | | | | | | [place] [address] | | | | + + + + + + + + | Specimen | + + | Blood specimen | | (specimen) | + + + +---------+ + + | Performing | Address | City/State/Zipcode | Phone Number | | Organization | | | | + +---------+ + + | EXTERNAL LAB | | | | + +---------+ + + Comprehensive Metabolic Panel (10/07/2014 5:37 AM PDT) + + + + + + | Component | Value | Ref Range | Performed | Pathologist | | | | | At | Signature | + + + + + + | Na | 134 (L)Comment: Testing | 135 - 143 | EXTERNAL | | | | performed at [facility], [address] | mmol/L | LAB | | | | [address], | | | | | | [place] [address] | | | | + + + + + + | K | 2.9 (L)Comment: Testing | 3.5 - 4.9 | EXTERNAL | | | | performed at [facility], [address] | mmol/L | LAB | | | | [address], | | | | | | [place] [address] | | | | + + + + + + | Cl | 102Comment: Testing | 99 - 109 mmol/L | EXTERNAL | | | | performed at [facility], [address] | | LAB | | | | [address], | | | | | | [place] [address] | | | | + + + + + + | CO2 | 24Comment: Testing | 23 - 32 mmol/L | EXTERNAL | | | | performed at [facility], [address] | | LAB | | | | [address], | | | | | | [place] [address] | | | | + + + + + + | Anion Gap | 11Comment: Testing | 5 - 20 mmol/L | EXTERNAL | | | | performed at [facility], [address] | | LAB | | | [address], | | | | | | [place] [address] | | | | + + + + + + | Glucose, | 138 (H)Comment: Testing | 65 - 99 mg/dL | EXTERNAL | | | Fasting | performed at [facility], [address] | | LAB | | | | [address], | | | | | | [place] [address] | | | | + + + + + + | BUN | 3 (L)Comment: Testing | 8 - 25 mg/dL | EXTERNAL | | | | performed at [facility], [address] | | LAB | | | | [address], | | | | | | [place] [address] | | | | + + + + + + | Creatinine | 0.66Comment: Testing | 0.50 - 1.00 | EXTERNAL | | | | performed at [facility], [address] | mg/dL | LAB | | | | [address], | | | | | | [place] [address] | | | | + + + + + + | BUN/Creatin | 5Comment: Testing | | EXTERNAL | | | ine Ratio | performed at [facility], [address] | | LAB | | | | [address], | | | | | | [place] [address] | | | | + + + + + + | Calcium | 8.5Comment: Testing | 8.5 - 10.5 | EXTERNAL | | | | performed at [facility], [address] | mg/dL | LAB | | | | [address], | | | | | | [place] [address] | | | | + + + + + + | Protein, | 6.5Comment: Testing | 6.3 - 8.2 g/dL | EXTERNAL | | | Total | performed at [facility], [address] | | LAB | | | | [address], | | | | | | [place] [address] | | | | + + + + + + | Albumin | 3.2 (L)Comment: Testing | 3.6 - 5.0 g/dL | EXTERNAL | | | | performed at [facility], [address] | | LAB | | | | [address], | | | | | | [place] [address] | | | | + + + + + + | Globulin | 3.3Comment: Testing | 1.3 - 4.9 g/dL | EXTERNAL | | | | performed at [facility], [address] | | LAB | | | | [address], | | | | | | [place] [address] | | | | + + + + + + | A/G Ratio | 1.0Comment: Testing | 1.0 - 2.4 | EXTERNAL | | | | performed at [facility], [address] | | LAB | | | | [address], | | | | | | [place] [address] | | | | + + + + + + | Bilirubin | 0.4Comment: Testing | 0.1 - 1.5 mg/dL | EXTERNAL | | | Total | performed at [facility], [address] | | LAB | | | | [address], | | | | | | [place] [address] | | | | + + + + + + | ALP, | 113Comment: Testing | 35 - 115 U/L | EXTERNAL | | | External | performed at [facility], [address] | | LAB | | | [address], | | | | | | [place] [address] | | | | + + + + + + | AST | 56 (H)Comment: Testing | 10 - 45 U/L | EXTERNAL | | | | performed at [facility], [address] | | LAB | | | | [address], | | | | | | [place] [address] | | | | + + + + + + | ALT | 48Comment: Testing | 10 - 65 U/L | EXTERNAL | | | | performed at [facility], [address] | | LAB | | | | [address] [facility], | | | | | | [place] [address] | | | | + + + + + + | Estimated | >60Comment: GFR <60: | mL/min/1.73m2 | EXTERNAL | | | GFR | CHRONIC KIDNEY DISEASE, | | LAB | | | | IF FOUND OVER A 3 MONTH | | | | | | PERIOD.GFR <15: KIDNEY | | | | | | FAILURE.FOR | | | | | | AMERICANS, MULTIPLY THE | | | | | | CALCULATED GFR BY | | | | | | 1.210.Testing performed | | | | | | at [facility], [address] | | | | | | [facility], | | | | | | [place] [address] | | | | + + + + + + + + | Specimen | + + | Blood specimen | | (specimen) | + + + +---------+ + + | Performing | Address | City/State/Zipcode | Phone Number | | Organization | | | | + +---------+ + + | EXTERNAL LAB | | | | + +---------+ + + , Urine, Qual (10/07/2014 12:09 AM PDT) + + + + + + | Component | Value | Ref Range | Performed | Pathologist | | | | | At | Signature | + + + + + + | Preg Test, | NEGATIVEComment: Testing | | EXTERNAL | | | Ur | performed at [facility];[address] | | LAB | | | | [address];[place] | | | | | | [address] | | | | + + + + + + + + | Specimen | + + | Urine specimen | | (specimen) | + + + +---------+ + + | Performing | Address | City/State/Zipcode | Phone Number | | Organization | | | | + +---------+ + + | EXTERNAL LAB | | | | + +---------+ + + MRSA NAAT (10/06/2014 9:55 PM PDT) + + | Specimen | + + | | + + + + + | Narrative | Performed At | + + + | SOURCE NARES(NOSE) | EXTERNAL LAB | | Testing performed at [facility];[address];[place] [address] MRSA PCR | | | Unable to result from PCR. | | | Culture set up.Abnormal Testing performed at [facility];[address];[place] [address] | | + + + + +---------+ + + | Performing | Address | City/State/Zipcode | Phone Number | | Organization | | | | + +---------+ + + | EXTERNAL LAB | | | | + +---------+ + + Culture, MRSA (10/06/2014 9:55 PM PDT) + + | Specimen | + + | | + + + + + | Narrative | Performed At | + + + | Specimen Description NARES(NOSE) CULTURE | EXTERNAL LAB | | NO METHICILLIN RESISTANT STAPH | | | AUREUS ISOLATED. | | | Testing performed at [facility], [address] [place], [place] | | | [address] | | + + + + +---------+ + + | Performing | Address | City/State/Zipcode | Phone Number | | Organization | | | | + +---------+ + + | EXTERNAL LAB | | | | + +---------+ + + documented in this encounter Visit Diagnoses + + | Diagnosis | + + | Leukocytosis, unspecified | + + documented in this encounter
--- OUTSIDE RECORDS SUMMARY | ~2019-10-25 | XMS | Encounter Summary ---
Demographics + + + | Address | [address] | | | [place] [address] | + + + | Home Phone | | + + + | Preferred Language | Unknown | + + + | Marital Status | Single | + + + | Buddhism Affiliation | 1041 | + + + | Race | Unknown | + + + | Ethnic Group | Unknown | + + + Author + + + | Author | [facility] | | | and [place] | + + + | Organization | [facility] | | | and [...] Team Providers + +------+ + | Care District Manager In Training Name | Role | Phone | + +------+ + | Afua Marinelli PA-C | PCP | | + +------+ + Reason for Visit + + + | Reason | Comments | + + + | Annual Exam | | + + + Evaluate & Treat (Routine) +--------+--------+ + + + + | Status | Reason | Specialty | Diagnoses / | Referred By | Referred To | | | | | Procedures | Contact | Contact | +--------+--------+ + + + + | Closed | | Cardiology | Diagnoses | Yves, | Serg, | | | | | Annual | Afua Marin, | MD Rufina | | | | | LVM to | PA-C [address] | [address] | | | | | R/S to | | [place] | | | | | 01/16/19 | [facility] | [place], [place] | | | | | LVM again on | [address] | [address] Phone: | | | | | 07/26/18 to | [place], | [phone] | | | | | R/S | [place] [address] | Fax: | | | | | Procedures | Phone: | [phone] | | | | | OFFICE VISIT | [phone] | | | | | | REGULAR | Fax: | | | | | | | [phone] | | +--------+--------+ + + + + Encounter Details +--------+---------+ + + + | Date | Type | Department | Care Team | Description | +--------+---------+ + + + | 01/16/ | Office | [facility] | Rufina Ohara, | Encounter for annual | | 2019 | Visit | CARDIOLOGY [place] | [address] | health examination | | | | [address] | [place], [place] | (Primary Dx); Acute | | | | [address] | [address] | CVA (cerebrovascular | | | | [place], [place] | | accident); PFO | | | | [address] | | (patent foramen | | | | [phone] | | ovale) | +--------+---------+ + + + Social History + +-------+ [...] + + documented as of this encounter Last Filed Vital Signs + + + [...] | | + + + + + documented in this encounter Progress Notes Rufina Ohara MD - 01/16/2019 1:30 PM PDTFormatting of this note might be different f rom the original. Date of visit: 01/16/2019 Primary Care Physician: Afua Marinelli PA-C CHIEF COMPLAINT: Chief Complaint Patient presents with Annual Exam HISTORY OF PRESENT ILLNESS: [place] is 28 y.o. here for follow up visit. Since prior evaluation no further episodes of syncope. No dizziness no chest pain or shortness of breath. Patient has been clean for at least a year now no further smoking or IV drug abuse. Patient previously was in a car with her cousin returning from a job interview also then sh juan luis lost consciousness. [facility] records were obtained, apparently patient lost consciousness for 3-5 mins even though patient now tells me that she was told it was more than 8 minutes. At that time she w as noted to have loss of urine. No clear seizure activity. She felt hot flash all over her b melony and then lost consciousness. EMS was called, . Her report patient was found in the backseat alert oriented 4 no focal deficit normal oxygenation and hemodynamics. In [facility] again patient electrolytes, lab work, EKG and vitals were within no rmal limits. Patient has history of drug and substance abuse however she claims to be clean as of October 08. In 2014 patient was admitted to [facility] secondary to cerebrovascular accident MRI o f the brain showed possible infarct. Transesophageal echocardiogram confirmed small patent foramen oval. Past medical history, SH, FH, and medications were reviewed in the chart. Medications: Outpatient Encounter Medications as of 01/16/2019 Medication Sig Dispense Refill [DISCONTINUED] Cholecalciferol (VITAMIN D PO) Take 1 tablet by mouth daily. (Patient no t taking: Reported on 01/16/2019) [DISCONTINUED] ibuprofen (ADVIL,MOTRIN) 600 MG tablet Take 600 mg by mouth as needed. ( Patient not taking: Reported on 01/16/2019) Multiple Vitamins-Minerals (MULTIVITAMIN ADULT) TABS Take by mouth Daily. Probiotic Product (PROBIOTIC-10) CHEW Take by mouth Daily. No facility-administered encounter medications on file as of 01/16/2019. Allergies Allergies Allergen Reactions Methergine [Methylergonovine Maleate] Hives Penicillins Hives Received Rocephin at [facility] today (10/06/14) with no reaction. REVIEW OF SYSTEMS: Constitutional: negative for fatigue. No fever, chills, and rigors. Weight has been stable . HEENT: Negative for nosebleeds, ear discharge, nasal congestion or soar throat. Eyes: Negative for visual disturbance, redness, or secretion. Respiratory: Negative for cough, sputum production, hemoptysis, wheezing. Cardiovascular: as HPI. Gastrointestinal: Negative for nausea, vomiting, diarrhea, abdominal pain and blood in stoo l. Genitourinary: Negative for dysuria or hematuria. Musculoskeletal: Negative for myalgias, back pain or arthralgia. Skin: Negative for rash. Neurological: Negative for dizziness. No numbness. No recent falls. No slurred speech. No further syncopal episodes. Hematological: No significant bruising. Psychiatric/Behavioral: No depression or anxiety. PHYSICAL EXAM Vital Signs: BP 104/58 | Pulse 66 | Ht 1.753 m (5' 9") | Wt 85.2 kg (187 lb 12.8 oz) | SpO2 98% | B WI 27.73 kg/m GENERAL APPEARANCE: Alert, oriented, cooperative, no distress, appears stated age. HEENT: Extraocular movements were intact. No jaundice. Pupiles round and reactive. NECK: No JVD, lymphadenopathy. Carotid upstrokes normal. No carotid bruit heard. CARDIAC: Regular rhythm and rate. There is normal S1 and S2. No galop. No murmur. CHEST: Normal bilateral symmetrical chest excursion.ackles or wheezing. No evidence of dull ness. ABDOMEN: Soft.No tenderness or guarding. No palpable organs. Active bowel sounds. EXTREMITIES: No lower extremities edema, cyanosis or clubbing. NEURO: Alert and oriented times three with no focal deficit. Cranial nerves are grossly no rmal. SKIN: Warm and dry. No rash. Psych: Normal affect and mood. DATA Lab Results Component Value Date/Time NA 137 10/10/2014 05:03 NA 140 10/09/2014 06:27 NA 135 10/08/2014 05:10 K 3.8 10/10/2014 05:03 K 3.5 10/09/2014 06:27 K 3.5 10/08/2014 05:10 CO2 29 10/10/2014 05:03 CO2 28 10/09/2014 06:27 CO2 26 10/08/2014 05:10 BUN 8 10/10/2014 05:03 BUN 5 (L) 10/09/2014 06:27 BUN 4 (L) 10/08/2014 05:10 LABCREA 0.59 10/10/2014 05:03 LABCREA 0.63 10/09/2014 06:27 LABCREA 0.61 10/08/2014 05:10 CALCIUM 8.7 10/10/2014 05:03 CALCIUM 8.5 10/09/2014 06:27 CALCIUM 8.1 (L) 10/08/2014 05:10 MG 1.6 (L) 10/08/2014 05:10 MG 1.7 10/07/2014 05:37 Lab Results Component Value Date/Time WBC 13.14 (H) 10/10/2014 05:03 WBC 12.95 (H) 10/09/2014 06:27 WBC 17.41 (H) 10/08/2014 05:10 HGB 11.6 10/10/2014 05:03 HGB 11.2 (L) 10/09/2014 06:27 HGB 10.9 (L) 10/08/2014 05:10 MCV 89.9 10/10/2014 05:03 MCV 90.2 10/09/2014 06:27 MCV 89.6 10/08/2014 05:10 Lab Results Component Value Date CHOL 89 10/08/2014 TRIG 47 10/08/2014 HDL 36 (L) 10/08/2014 GLUF 99 10/10/2014 GLUF 115 (H) 10/09/2014 EC01/16/2019 Ordered and reviewed by myself shows sinus bradycardia otherwise normal EKG. 12/26/2017 Ordered and reviewed by myself, showed normal sinus rhythm, normal ECG. Last Echo: 2014 Normal LV size and function, positive patent ybarra ovale on transesophageal echocardiogra m by color Doppler. Last Stress test: Last Cath: Last US carotid: Carotid doppler right distal ICA 50-69% stenosis. 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 ASSESSMENT: Patient is 28 y.o. female with the following medical problems. 1. Patent foramen ovale, previous cerebrovascular accident 2014. 2. Syncopal episodes that possible vasovagal. Patient had no arrhythmia upon evaluation by EMS. 3. History of substance and drug abuse. 4. History of cerebrovascular accident in 2014. Plan: Patient has been having denies any symptoms at this time. No further syncopal episodes. Had cerebrovascular accident in the setting of IV drug abuse. Has been clean for a year now. This time no indication for further cardiac testing or evaluation. Her symptoms were in the setting of infectious presentation and she had history of IV drug abuse. We will start following up as needed. Start aspirin. Continue to follow-up with neurology. *This report has been prepared using a voice recognition system. The report was reviewed fo r accuracy, however, sound-alike word errors, addition and/or deletions may occur. If there is any question about this report please contact me. Rufina Ohara MD, MPH documented in this encounter Plan of Treatment Not on filedocumented as of this encounter Procedures + +--------+ + + + | Procedure Name | Priori | Date/Time | Associated Diagnosis | Comments | | | ty | | | | + +--------+ + + + | ECG 12 LEAD | Routin | 01/16/2019 | Encounter for | Results for this | | | e | 1:55 PM | annual health | procedure are in the | | | | PDT | examination | results section. | + +--------+ + + + documented in this encounter Results ECG 12 lead (01/16/2019 1:55 PM PDT) + + + + + + | Component | Value | Ref Range | Performed | Pathologist | | | | | At | Signature | + + + + + + | VENTRICULAR | 58 | BPM | [facility] | | | RATE EKG | | | | | + + + + + + | ATRIAL RATE | 58 | BPM | [facility] | | + + + + + + | P-R | 130 | ms | [facility] | | | INTERVAL | | | | | + + + + + + | QRS | 84 | ms | [facility] | | | DURATION | | | | | + + + + + + | Q-T | 420 | ms | [facility] | | | INTERVAL | | | | | + + + + + + | Q-T | 412 | ms | [facility] | | | INTERVAL | | | | | | (CORRECTED) | | | | | + + + + + + | P WAVE AXIS | 24 | degrees | [facility] | | + + + + + + | QRS AXIS | 70 | degrees | [facility] | | + + + + + + | T AXIS | 41 | degrees | [facility] | | + + + + + + | INTERPRETAT | Sinus bradycardia with | | [facility] | | | ION TEXT | sinus | | | | | | arrhythmiaOtherwise | | | | | | normal ECGWhen compared | | | | | | with ECG of 26-DEC-2017 | | | | | | 14:02,Vent. rate has | | | | | | decreased BY 33 | | | | | | BPMPlease refer to | | | | | | Providers office visit | | | | | | note for Providers | | | | | | Interpretation.Confirmed | | | | | | by [facility] [place] Read Only, | | | | | | [facility] [place] ([id number]), | | | | | | editor newspaper Sathya Mistry | | | | | | ([id number]) on 01/16/2019 | | | | | | 5:21:35 PM | | | | + + + + + + + + | Specimen | + + | | + + + + + | Narrative | Performed At | + + + | | | + + + + +---------+ + + | Performing | Address | City/State/Zipcode | Phone Number | | Organization | | | | + +---------+ + + | [facility] | | | | + +---------+ + + documented in this encounter Visit Diagnoses + + | Diagnosis | + + | Encounter for annual health examination - Primary Routine general medical examination | | at a health care facility | + + | Acute CVA (cerebrovascular accident) | + + | PFO (patent foramen ovale) Ostium secundum type atrial septal defect | + + documented in this encounter
--- OUTSIDE RECORDS SUMMARY | ~2019-10-25 | XMS | Encounter Summary ---
Demographics + + + | Address | [address] | | | [place] [address] | + + + | Home Phone | | + + + | Preferred Language | Unknown | + + + | Marital Status | Single | + + + | Shinto Affiliation | 1041 | + + + | Race | Unknown | + + + | Ethnic Group | Unknown | + + + Author + + + | Author | [facility] | | | and [place] | + + + | Organization | [facility] | | [...] Team Providers + +------+ + | Care Veneer Jointer Operator Name | Role | Phone | + +------+ + | Afua Marinelli PA-C | PCP | | + +------+ + Encounter Details +--------+ + + + + | Date | Type | Department | Care Team | Description | +--------+ + + + + | 01/08/ | Orders Only | [facility] | Francesco Xavier MD | | | 2019 | | HEMATOLOGY AND | [address] | | | | | ONCOLOGY [address] [place] | [address] | [address] | | | | | [place] | | | | | | [address] | | | | | | [phone] | | | +--------+ + + + + Social History + +-------+ +--------+------+ | Tobacco Use | Types | Packs/Day | Years | Date | | | | | Used | | + +-------+ +--------+------+ | Current Every Day | | 0.5 | | | | Smoker | | | | | + +-------+ +--------+------+ + + | Comments: got patches and gum to try to stop | + + + + + | Sex Assigned [...] + + documented as of this encounter Plan of Treatment Not on filedocumented as of this encounter Visit Diagnoses Not on filedocumented in this encounter
--- OUTSIDE RECORDS SUMMARY | ~2019-10-25 | XMS | Encounter Summary ---
Demographics + + + | Address | [address] | | | [place] [address] | + + + | Home Phone | | + + + | Preferred Language | Unknown | + + + | Marital Status | Single | + + + | Amish Affiliation | Unknown | + + + | Race | Unknown | + + + | Ethnic Group | Not or | + + + Author + + + | Author | [facility] | + + + | Organization | [facility] | + + + | Address | Unknown | + + + | Phone | Unavailable | + + + Support + + +---------+ + | Name | Relationship | Address | Phone | + + +---------+ + | Danielle Ewing | ECON | Unknown | | + + +---------+ + Care Team Providers + +------+ + | Care Radio Director Name | Role | Phone | + +------+ + PCP | Unavailable | + +------+ + Encounter Details +--------+ + + + + | Date | Type | Department | Care Team | Description | +--------+ + + + + | 04/10/ | Results | [facility] at [facility] [address] | Carl Fletcher MD | | | 2000 | Only | [address] | [address] | | | | | Cathy | [place], | | | | | [facility], | [place] [address] | | | | | [address] [place] [address] | [phone] | | | | | [place], [place] | | | | | | [address] | | | | | | [phone] | | | +--------+ + + + [...] as of this encounter Plan of Treatment + +---------+--------+ + + | Name | Type | Priori | Associated Diagnoses | Date/Time | | | | ty | | | + +---------+--------+ + + | SEDATIN IN [facility] DXR | Imaging | Routin | | 04/10/2001 1:55 PM | | | | e | | PST | + +---------+--------+ + + documented as of this encounter Procedures + +--------+ + + + | Procedure Name | Priori | Date/Time | Associated Diagnosis | Comments | | | ty | | | | + +--------+ + + + | CYSTOGRAM, VOIDING | Priori | 04/10/2001 | | Results for this | | | ty | 2:06 PM | | procedure are in the | | | | PST | | results section. | + +--------+ + + + | US KIDNEY BILATERAL | Priori | 04/10/2001 | | Results for this | | | ty | 11:28 AM | | procedure are in the | | | | PST | | results section. | + +--------+ + + + documented in this encounter Results CYSTOGRAM, VOIDING (04/10/2001 2:06 PM PST) + + + + + + | Component | Value | Ref Range | Performed | Pathologist | | | | | At | Signature | + + + + + + | CYSTOGRAM, | Radiologist 1: | | | | | VOIDING | RACHEL DUDLEY, | | | | | | M.D.-Radiologist 2: | | | | | | RACHEL DUDLEY, | | | | | | M.D.VCU04/10/2001 | | | | | | Dictated 04/10/2001 | | | | | | COMPARISON: Comparison | | | | | | film not available. | | | | | | HISTORY: A 10-year-old | | | | | | female with frequent | | | | | | urinary tract | | | | | | infections. TECHNIQUE: | | | | | | Under conscious | | | | | | sedation, the patient | | | | | | was catheterized bythe | | | | | | injection mold tooling technician. | | | | | | 200 cc of urine was | | | | | | collected. FINDINGS: | | | | | | The examination was | | | | | | performed under the | | | | | | supervision of | | | | | | . | | | | | | Approximately 475 cc | | | | | | of contrast was entered | | | | | | into thebladder. There | | | | | | was no ureterocele or | | | | | | bladder diverticulae. | | | | | | Novesicoureteral | | | | | | reflux was present. | | | | | | There was complete | | | | | | bladder emptywith | | | | | | voiding. IMPRESSION: | | | | | | Normal VCUG. No | | | | | | evidence of | | | | | | vesicoureteral reflux. | | | | | | END OF IMPRESSION: | | | | + + + + + + + + | Specimen | + + | | + + + +---------+ + + | Performing | Address | City/State/Zipcode | Phone Number | | Organization | | | | + +---------+ + + | [facility] DEPARTMENT OF | | | | | RADIOLOGY | | | | + +---------+ + + US KIDNEY BILATERAL (04/10/2001 11:28 AM PST) + + + + + + | Component | Value | Ref Range | Performed | Pathologist | | | | | At | Signature | + + + + + + | US KIDNEY | Radiologist 1: | | | | | BILATERAL | RACHEL DUDLEY, | | | | | | M.DMarnieULTRASOUND KIDNEY | | | | | | BILATERAL: 04/10/2001 at | | | | | | 1100 hours Dictated: | | | | | | 04/10/2001 FINDINGS: | | | | | | The patient weighs | | | | | | approximately 58 | | | | | | kilograms. The right | | | | | | kidney is normal in | | | | | | echotexture. The | | | | | | kidney measures 10.7 | | | | | | x5.2 x 5.4 cm with a | | | | | | volume of 157 cc which | | | | | | is close to the | | | | | | 50thpercentile using | | | | | | renal volume for weight. | | | | | | There is just | | | | | | minimalsplitting of the | | | | | | right renal pelvis with | | | | | | the AP diameter of the | | | | | | renalpelvis measuring | | | | | | 5.0 mm, which is not of | | | | | | any clinical | | | | | | significance.The | | | | | | hydroureter was seen. | | | | | | No renal masses, cysts | | | | | | or calcifications. The | | | | | | left kidney is normal in | | | | | | echotexture. The | | | | | | kidney measures 10.6 | | | | | | x4.8 x 5.0 cm with a | | | | | | volume of 132 cc, which | | | | | | is between the 5th to | | | | | | [id number] percentile using | | | | | | renal volume for | | | | | | weight. There | | | | | | nohydronephrosis or | | | | | | hydroureter, no renal | | | | | | masses, cysts | | | | | | orcalcifications are | | | | | | seen. The bladder volume | | | | | | was 186 cc and after | | | | | | voiding there was a | | | | | | residualof only 5.0 cc. | | | | | | IMPRESSION: 1. Minimal | | | | | | splitting of the right | | | | | | renal pelvis which is | | | | | | not thoughtto be of any | | | | | | clinical significance. | | | | | | No left sided | | | | | | hydronephrosis. 2. No | | | | | | renal masses, cysts or | | | | | | calcifications and no | | | | | | renal duplicationis | | | | | | seen. END OF | | | | | | IMPRESSION: | | | | + + + + + + + + | Specimen | + + | | + + + +---------+ + + | Performing | Address | City/State/Zipcode | Phone Number | | Organization | | | | + +---------+ + + | [facility] DEPARTMENT OF | | | | | RADIOLOGY | | | | + +---------+ + + documented in this encounter Visit Diagnoses Not on filedocumented in this encounter"
--- OUTSIDE RECORDS SUMMARY | ~2019-10-25 | XMS | Encounter Summary ---
Demographics + + + | Address | [address] | | | [place] [address] | + + + | Home Phone | | + + + | Preferred Language | Unknown | + + + | Marital Status | Single | + + + | Moravian Affiliation | Unknown | + + + | Race | Unknown | + + + | Ethnic Group | Not or | + + + Author + + + | Author | [facility] | + + + | Organization | [facility] | + + + | Address | Unknown | + + + | Phone | Unavailable | + + + Support + + +---------+ + | Name | Relationship | Address | Phone | + + +---------+ + | Danielle Ewing | ECON | Unknown | | + + +---------+ + Care Team Providers + +------+ + | Care Immigration Paralegal Name | Role | Phone | + +------+ + PCP | Unavailable | + +------+ + Encounter Details +--------+ + + + + | Date | Type | Department | Care Team | Description | +--------+ + + + + | 04/10/ | Results | [facility] at [facility] [address] | Carl Fletcher MD | | | 2000 | Only | [address] | [address] | | | | | Cathy | [place], | | | | | [facility], | [place] [address] | | | | | [address] [place] [address] | [phone] | | | | | [place], [place] | | | | | | [address] | | | | | | [phone] | | | +--------+ + + + [...] + +---------+--------+ + + | SEDATIN IN [facility] DXR | Imaging | Routin | | [...] bythe | | | | | | health care sanitary technician. | | | | | | [...] | | + +---------+ + + | [facility] DEPARTMENT OF | | | | | [...] to | | | | | | [id number] percentile using | | | | | [...] | | + +---------+ + + | [facility] DEPARTMENT OF | | | | | RADIOLOGY | | | | + +---------+ + + documented in this encounter Visit Diagnoses Not on filedocumented in this encounter"
--- OUTSIDE RECORDS SUMMARY | ~2019-10-25 | XMS | Encounter Summary ---
Demographics + + + | Address | [address] | | | [place] [address] | + + + | Home Phone | | + + + | Preferred Language | Unknown | + + + | Marital Status | Single | + + + | Orthodox Affiliation | 1041 | + + + | Race | Unknown | + + + | Ethnic Group | Unknown | + + + Author + + + | Author | [facility] | | | and [place] | + + + | Organization | [facility] | | | and [...] Team Providers + +------+ + | Care Lease Administration Supervisor Name | Role | Phone | + +------+ + | Afua Marinelli PA-C | PCP | | + +------+ + Encounter Details +--------+ + + + + | Date | Type | Department | Care Team | Description | +--------+ + + + + | 01/04/ | Orders Only | [facility] | Francesco Xavier MD | Cerebral infarction | | 2019 | | HEMATOLOGY AND | [address] | ([facility]); Atrial septal | | | | ONCOLOGY [address] | [place] | defect | | | | [address] | [address] | | | | | [place] | | | | | | [address] | | | | | | [phone] | | | +--------+ + + + [...] of this encounter Plan of Treatment + +------+--------+ + + | Name | Type | Priori | Associated Diagnoses | Order Schedule | | | | ty | | | + +------+--------+ + + | von Willebrand | Lab | Routin | Cerebral | Expected: | | Profile | | e | infarction (HCC) | 04/20/2018, Expires: | | | | | Atrial septal defect | 04/20/2019 | + +------+--------+ + + | Beta 2 Glycoprotein | Lab | Routin | Cerebral | Expected: | | 1 Ab, IgM | | e | infarction (HCC) | 04/20/2018, Expires: | | | | | Atrial septal defect | 04/20/2019 | + +------+--------+ + + | Beta 2 Glycoprotein | Lab | Routin | Cerebral | Expected: | | 1 Ab, IgG | | e | infarction (HCC) | 04/20/2018, Expires: | | | | | Atrial septal defect | 04/20/2019 | + +------+--------+ + + | Factor V Leiden | Lab | Routin | Cerebral | Expected: | | Mutation | | e | infarction ([facility]) | 04/20/2018, Expires: | | | | | Atrial septal defect | 04/20/2019 | + +------+--------+ + + | Lupus Anticoagulant | Lab | Routin | Cerebral | Expected: | | Profile | | e | infarction ([facility]) | 04/20/2018, Expires: | | | | | Atrial septal defect | 04/20/2019 | + +------+--------+ + + | PTT | Lab | Routin | Cerebral | Expected: | | | | e | infarction ([facility]) | 04/20/2018, Expires: | | | | | Atrial septal defect | 04/20/2019 | + +------+--------+ + + | Protime INR | Lab | Routin | Cerebral | Expected: | | | | e | infarction ([facility]) | 04/20/2018, Expires: | | | | | Atrial septal defect | 04/20/2019 | + +------+--------+ + + | Factor IX, Activity | Lab | Routin | Cerebral | Expected: | | | | e | infarction ([facility]) | 04/20/2018, Expires: | | | | | Atrial septal defect | 04/20/2019 | + +------+--------+ + + | Factor XII, Activity | Lab | Routin | Cerebral | Expected: | | | | e | infarction ([facility]) | 04/20/2018, Expires: | | | | | Atrial septal defect | 04/20/2019 | + +------+--------+ + + | Factor XI Activity | Lab | Routin | Cerebral | Expected: | | | | e | infarction ([facility]) | 04/20/2018, Expires: | | | | | Atrial septal defect | 04/20/2019 | + +------+--------+ + + | Prekallikrein factor | Lab | Routin | Cerebral | Expected: | | activity | | e | infarction (HCC) | 04/20/2018, Expires: | | | | | Atrial septal defect | 04/20/2019 | + +------+--------+ + + | Misc Lab Referral | Lab | Routin | Cerebral | Expected: | | | | e | infarction (HCC) | 04/20/2018, Expires: | | | | | Atrial septal defect | 04/20/2019 | + +------+--------+ + + documented as of this encounter Visit Diagnoses + + | Diagnosis | + + | Cerebral infarction (HCC) Unspecified cerebral artery occlusion with cerebral | | infarction | + + | Atrial septal defect Ostium secundum type atrial septal defect | + + documented in this encounter
--- OUTSIDE RECORDS SUMMARY | ~2019-10-25 | XMS | Encounter Summary ---
Demographics + + + | Address | [address] | | | [place] [address] | + + + | Home Phone | | + + + | Preferred Language | Unknown | + + + | Marital Status | Single | + + + | Samaritan Affiliation | 1041 | + + + | Race | Unknown | + + + | Ethnic Group | Unknown | + + + Author + + + | Author | [facility] | | | and [place] | + + + | Organization | [facility] | | | and [...] Team Providers + +------+ + | Care Audiology Technician Name | Role | Phone | + +------+ + | Afua Marinelli PA-C | PCP | | + +------+ + Encounter Details +--------+ + + + + | Date | Type | Department | Care Team | Description | +--------+ + + + + | 01/04/ | Orders Only | [facility] | Francesco Xavier MD | Cerebral infarction | | 2019 | | HEMATOLOGY AND | [address] | ([facility]); Atrial septal | | | | ONCOLOGY [address] | [place] | defect | | | | [address] | [address] | | | | | [place] | | | | | | [address] | | | | | | [phone] | | | +--------+ + + + [...] | Mutation | | e | infarction ([facility]) | 04/20/2018, Expires: | | | | | Atrial septal defect | 04/20/2019 | + +------+--------+ + + | Lupus Anticoagulant | Lab | Routin | Cerebral | Expected: | | Profile | | e | infarction ([facility]) | 04/20/2018, Expires: | | | | | Atrial septal defect | 04/20/2019 | + +------+--------+ + + | PTT | Lab | Routin | Cerebral | Expected: | | | | e | infarction ([facility]) | 04/20/2018, Expires: | | | | | Atrial septal defect | 04/20/2019 | + +------+--------+ + + | Protime INR | Lab | Routin | Cerebral | Expected: | | | | e | infarction ([facility]) | 04/20/2018, Expires: | | | | | Atrial septal defect | 04/20/2019 | + +------+--------+ + + | Factor IX, Activity | Lab | Routin | Cerebral | Expected: | | | | e | infarction ([facility]) | 04/20/2018, Expires: | | | | | Atrial septal defect | 04/20/2019 | + +------+--------+ + + | Factor XII, Activity | Lab | Routin | Cerebral | Expected: | | | | e | infarction ([facility]) | 04/20/2018, Expires: | | | | | Atrial septal defect | 04/20/2019 | + +------+--------+ + + | Factor XI Activity | Lab | Routin | Cerebral | Expected: | | | | e | infarction ([facility]) | 04/20/2018, Expires: | | | | [...]
--- OUTSIDE RECORDS SUMMARY | ~2019-10-25 | XMS | Encounter Summary ---
Demographics + + + | Address | [address] | | | [place] [address] | + + + | Home Phone | | + + + | Preferred Language | Unknown | + + + | Marital Status | Single | + + + | Buddhism Affiliation | 1041 | + + + | Race | Unknown | + + + | Ethnic Group | Unknown | + + + Author + + + | Author | [facility] | | | and [place] | + + + | Organization | [facility] | | | [...] Team Providers + +------+ + | Care Digital Research Analyst Name | Role | Phone | + +------+ + PCP | Unavailable | + +------+ + Encounter Details +--------+ + + + + | Date | Type | Department | Care Team | Description | +--------+ + + + + | 10/06/ | Hospital | [facility] | Arnold Workmna | Leukocytosis, | | 2015 - | Encounter | [facility] | Blaine Mckay MD [address] | unspecified | | | | CLINICAL DECISION | [address] | | | 10/10/ | | [address] | [place] [address] | | | 2015 | | [facility] [place] | [phone] | | | | | [address] | | | | | | [phone] | | | +--------+ + + + [...] 1450 Date of Service: 10/10/14837 Status: Signed Software Administrator: Marialuisa Brown MD (Physician) Related Notes: Original Note by Marialuisa Brown MD (Physician) filed at 10/10/14 0842 [facility] Service: Hospitalist Physician Discharge Summary Patient ID: [...] about 4 years a go, presented to [facility] with fever, leukocytosis, and tachycardia. There was a concern for endocarditis, and patient has a history of IV drug abuse and had a single relap se recently in the last 4 years, was transferred to [facility] and infec tious disease was consulted. 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 You may get the following medications from [...] summary. This entry has been created using [employer] Speech Recognition software and [employer]. The entry has been reviewed and there [...] Date of Service: 10/10/14 1020 Status: Signed Software Administrator: Jeni Ceja RN (Registered Nurse) Discharged ambulatory to boyfriend and mother. Home per private car.Jeni Ceja 10/10/2014 onver venecia Transaction, Provider Unknown - 10/10/2014 9:31 AM PDT Nurse Progress Note by Jeni Ceja RN at 10/10/14930 Author: Jeni Ceja RN Service: (none) Author Type: Registered Nurse Filed: 10/10/1432 Date of Service: 10/10/14930 Status: Signed Software Administrator: Jeni Ceja RN (Registered Nurse) Discharge instructions explained to patient and she she states understanding.Jeni Ceja onver venecia Transaction, Provider Unknown - 10/10/2014 5:36 AM PDT Nurse Progress Note by Jacinta Arshad RN at 10/10/14535 Author: Jacinta Arshad RN Service: (none) Author Type: Registered Nurse Filed: 10/10/1439 Date of Service: 10/10/14535 Status: Signed Software Administrator: Jacinta Arshad RN (Registered Nurse) Patient resting [...] 1821 Date of Service: 10/09/141818 Status: Signed Software Administrator: Jeni Ceja RN (Registered Nurse) Visual symptoms have completely resolved. No further problems. Friend at bedside.Jeni correa 10/09/2014 onver venecia Transaction, Provider Unknown - 10/09/2014 4:45 PM PDT Therapy Progress Note by Sabi Currie PT at 10/09/14 1645 Author: Sabi Currie PT Service: (none) Author Type: Physical Therapist Filed: 10/09/14 1723 Date of Service: 10/09/14 1645 Status: Signed Software Administrator: Sabi Currie PT (Physical Therapist) 10/09/14 1645 [...] Date of Service: 10/09/14 1505 Status: Signed Software Administrator: Jeni Ceja RN (Registered Nurse) Patient states [...] Service: (none) Author Type: Physician Filed: 10/09/14 6568 Date of Service: 10/09/14 1302 Status: Signed Software Administrator: Marialuisa Brown MD (Physician) [facility] Service: Hospitalist Progress Note Hospital Day: LOS: [...] PM This entry has been created using [employer] Speech Recognition software and Any[employer]. The entry has been reviewed and there may still exist sound alike word errors. Cleo, Heath Lugo O - 10/09/2014 11:18 AM PDT Progress Notes by Davin Purcell DO at 10/09/14 8126 Author: Davin Purcell DO Service: (none) Author Type: Physician Filed: 10/09/14 1518 Date of Service: 10/09/141117 Status: Addendum Software Administrator: Davin Purcell DO (Physician) Related Notes: Original Note by Davin Purcell DO (Physician) filed at 10/09/14 3467 [facility] Service: Infectious Disease Progress Note Hospital Day: LOS: 3 days Post-Op Day: * No surgery found * SUBJECTIVE Patient Summary: 24 y.o. female with significant past medical history of intravenous drug use who presented to the emergency department at [facility] on October 06 with 3-4 days of [...] 10/09/1403 Date of Service: 10/09/14900 Status: Signed Software Administrator: Jens Lou RN (Registered Nurse) Pt concerned that she [...] 1537 Date of Service: 10/09/14719 Status: Signed Software Administrator: Kolby Scott MD (Physician) [facility] Service: Neurology Follow up Note Date of [...] 36* >40 mg/dL Final Testing performed at [facility], [address] [place] [address] Triglycerides Date Value Ref Range Status 10/08/2014 47 <150 mg/dL Final Testing performed at [facility], [address] [place] [address] LDL CALC Date Value Ref Range Status 10/08/2014 44 <100 mg/dL Final Testing performed at [facility], [address] [place] [address] CHOLESTEROL Date Value Ref Range Status 10/08/2014 89 <200 mg/dL Final Testing performed at [facility], [facility] [place] [address] Lab Results Component Value Date LDLCALC 44 [...] (none) Author Type: Occupational Therapist Filed: 10/08/14 1968 Date of Service: 10/08/141339 Status: Signed Software Administrator: CIARAN Iraheta (Occupational Therapist) 10/08/14 1346 Home Environment Type of Home Home one story Home Exterior Layout 4-6 steps;Ramp Home Interior Layout Lives on main level with bedroom/bathroom Bathroom Shower/Tub Tub/shower unit Bathroom Toilet Standard Bathroom Equipment Shower chair Additional Comments Pt reports 1 fall last week. Prior Function Level of [place] Independent with functional mobility;Independent with ADLs;Independe nt [...] Notes by Marialuisa Brown MD at 10/08/14 4649 Author: Marialuisa Brown MD Service: (none) Author Type: Physician Filed: 10/08/14 1528 Date of Service: 10/08/147 Status: Signed Software Administrator: Marialuisa Brown MD (Physician) [facility] Service: Hospitalist Progress Note Hospital Day: LOS: [...] AM This entry has been created using [employer] Speech Recognition software and AnyMeeting. The entry has been reviewed and there may still exist sound alike word errors. onversion Trans action, Provider Unknown - 10/08/2014 11:03 AM PDT Therapy Progress Note by BRIDGETT Null at 10/08/14 1103 Author: BRIDGETT Null Service: (none) Author Type: Massage Therapist Filed: 10/08/14 1103 Date of Service: 10/08/14 110 Status: Signed Software Administrator: BRIDGETT Null (Massage Therapist) 10/08/14 1103 Massage Therapy Interventions Locations Back;Neck;Shoulder Massage Therapy Technique Effleurage;Petrissage;Urdu massage Response to treatment Decreased muscle tension Davin Gallo DO - 10/08/2014 10:44 AM PDTFormatting of this note might be different from the juanita ginal. Progress Notes by Davin Purcell DO at 10/08/14 1044 Author: Davin Purcell DO Service: (none) Author Type: Physician Filed: 10/08/14 1122 Date of Service: 10/08/14 1044 Status: Signed Software Administrator: Davin Purcell DO (Physician) [facility] Service: Infectious Disease Progress Note Hospital Day: LOS: 2 days Post-Op Day: * No surgery found * SUBJECTIVE Patient Summary: 24 y.o. 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 [...] by? Therapist/staff discretion Stair Management Technique Rail none;Iefo-cwgk-hxut Balance Balance Yes (Tinetti JENAE= 28/28; Postural [...] Recommendations Prior Setting (recommend pt see an infant teacher) Equipment Recommended None PT Ready for Discharge [...] 0557 Date of Service: 10/08/14556 Status: Signed Software Administrator: Tere Andre RPH (Pharmacist) Clinical Pharmacy Note: Pharmacy Dosing Vancomycin; Day 2 [facility] 24 y.o. female Weight: 81 [...] 10/07/147 Date of Service: 10/07/141815 Status: Signed Software Administrator: Jeni Ceja RN (Registered Nurse) Patient aware [...] Date of Service: 10/07/14 1515 Status: Signed Software Administrator: Jeni Barboza RN (Registered Nurse) 10/07/14 1511 [...] female who lives with grandfather on the [facility] near [place], [place]. Her mother, Danielle Sanchez lives in [place] [facility] and has visited patient. [phone] c. [phone]. Patient's grandmother i n 2013 and she has had difficult time past 6 months. She has completed her GED and has held a job no longer than 3 months. Patient admits to alcohol and drug abuse past 4 years and has had outpatient rehab and mental health counseling at [facility]. Patient's PCP is: ESVIN RICE Patient's [...] Notes by Marialuisa Brown MD at 10/07/14 1055 Author: Marialuisa Brown MD Service: (none) Author Type: Physician Filed: 10/07/14 5222 Date of Service: 10/07/14 1054 Status: Addendum Software Administrator: Marialuisa Brown MD (Physician) Related Notes: Original Note by Marialuisa Brown MD (Physician) filed at 10/07/14 1511 [facility] Service: Hospitalist Progress Note Hospital Day: LOS: [...] AM This entry has been created using [employer] Speech Recognition software and AnyMeeting. The entry has been reviewed and there may still exist sound alike word errors. onversion Trans action, Provider Unknown - 10/07/2014 3:59 AM PDT Progress Notes by Tere Andre RPH at 10/07/14358 Author: Tere Andre RPH Service: (none) Author Type: Pharmacist Filed: 10/07/14358 Date of Service: 10/07/14358 Status: Signed Software Administrator: Tere Andre RPH (Pharmacist) Clinical Pharmacy Note: Renal Monitoring [facility] 24 y.o. female Height: 177.8 cm Weight: 81 kg Serum Creatinine: 0.69 mg/dL (from [facility]) Estimated creatinine clearance - Cockcroft-Gault CrCl: 146 [...] 10/07/14357 Date of Service: 10/07/14357 Status: Signed Software Administrator: Tere Andre RPH (Pharmacist) Clinical Pharmacy Note: Pharmacy Dosing Vancomycin; Day 1 Kat Spencer 24 y.o. female Height: 177.8 cm Weight: 81 kg WBC: 21.3 Serum Creatinine: 0.69 mg/dL(from [facility]) Estimated creatinine clearance - Cockcroft-Gault CrCl: 146 mL/min. INDICATION: possible endocarditis. First dose of Vancomycin 1000 mg (12.3 mg/kg) was given 10/06 at 1530 at [facility];; will continue 1750 mg (21.6 mg/kg) IV [...] 10/06/141722 Date of Service: 10/06/141721 Status: Signed Software Administrator: Mariama Sebastian RN (Registered Nurse) Report received from [facility] RN. Patient expected to arrive shortly after [...] | + +--------+ + + + | CHAPIN CABAN, | Routin | 10/09/2014 | | [...] [place] | | | | | | [address] | | | | + + + + + + | Red Blood | 3.84Comment: Testing | 3.70 - 5.10 | EXTERNAL | | | Cells | performed at [facility], [address] | M/uL | LAB | | | Counted | [facility] [address], | | | | | | [place] [address] | | | | + + + + + + | Hemoglobin | 11.6Comment: Testing | 11.3 - 15.5 | EXTERNAL | | | | performed at [facility], [address] | g/dL | LAB | | | | [address], | | | | | | [place], [place] [address] | | | | + + + + + + | Hematocrit, | 34.5Comment: Testing | 34.0 - 46.0 % | EXTERNAL | | | POC | performed at [facility], [address] | | LAB | | | | [address], | | | | | | [place] [address] | | | | + + + + + + | MCV | 89.9Comment: Testing | 80.0 - 100.0 fl | EXTERNAL | | | | performed at [facility], [address] | | LAB | | | | [address], | | | | | | [place] [address] | | | | + + + + + + | MCH | 30.1Comment: Testing | 27.0 - 34.0 pg | EXTERNAL | | | | performed at [facility], [address] | | LAB | | | | [address], | | | | | | [place] [address] | | | | + + + + + + | MCHC | 33.5Comment: Testing | 32.0 - 35.5 | EXTERNAL | | | | performed at [facility], [address] | g/dL | LAB | | | | [address], | | | | | | [place] [address] | | | | + + + + + + | RDW-CV | 38.9Comment: Testing | 37 - 53 fl | EXTERNAL | | | | performed at [facility], [address] | | LAB | | | | [address], | | | | | | [place] [address] | | | | + + + + + + | Platelet | 656 (H)Comment: Testing | 150 - 400 K/uL | EXTERNAL | | | Count | performed at [facility], [address] | | LAB | | | Plasma | [address], | | | | | | [place] [address] | | | | + + + + + + | MPV | 7.5Comment: Testing | fl | EXTERNAL | | | | performed at [facility], [address] | | LAB | | | [address], | | | | | | [place] [address] | | | | + + + + + + | Differentia | MANUALComment: Testing | | EXTERNAL | | | l Type | performed at [facility], [address] | | LAB | | | | [address], | | | | | | [place] [address] | | | | + + + + + + | Segmented | 66Comment: Testing | % | EXTERNAL | | | Neutrophils | performed at [facility], [address] | | LAB | | | Manual | [address], | | | | | | [place] [address] | | | | + + + + + + | % Bands | 1Comment: Testing | % | EXTERNAL | | | | performed at [facility], [address] | | LAB | | | | [address], | | | | | | [place] [address] | | | | + + + + + + | % | 1Comment: Testing | % | EXTERNAL | | | Metamyelocy | performed at [facility], [address] | | LAB | | | [address] | [address], | | | | | | [place], [place] [address] | | | | + + + + + + | % | 1Comment: Testing | % | EXTERNAL | | | Myelocytes | performed at [facility], [address] | | LAB | | | | [address], | | | | | | [place] [address] | | | | + + + + + + | Lymphocytes | 18Comment: Testing | % | EXTERNAL | | | Manual | performed at [facility], [address] | | LAB | | | | [address], | | | | | | [place] [address] | | | | + + + + + + | Monocytes | 9Comment: Testing | % | EXTERNAL | | | Manual | performed at [facility], [address] | | LAB | | | | [place], | | | | | | [place] [address] | | | | + + + + + + | Eosinophils | 4Comment: Testing | % | EXTERNAL | | | Manual | performed at [facility], [address] | | LAB | | | | [address], | | | | | | [place] [address] | | | | + + + + + + | Absolute | 8.67 (H)Comment: Testing | 1.90 - 7.40 | EXTERNAL | | | Neutrophils | performed at [facility], [address] | K/uL | LAB | | | | [address], | | | | | | [place] [address] | | | | + + + + + + | Bands | 0.13Comment: Testing | 0.00 - 0.20 | EXTERNAL | | | Manual | performed at [facility], [address] | K/uL | LAB | | | | [address], | | | | | | [place] [address] | | | | + + + + + + | Absolute | 0.13 (H)Comment: Testing | K/uL | EXTERNAL | | | Metamyelocy | performed at [facility], [address] | | LAB | | | [address] | [address], | | | | | | [place] [address] | | | | + + + + + + | Absolute | 0.13 (H)Comment: Testing | K/uL | EXTERNAL | | | Myelocytes | performed at [facility], [address] | | LAB | | | | [address], | | | | | | [place] [address] | | | | + + + + + + | Absolute | 2.37Comment: Testing | 1.00 - 3.90 | EXTERNAL | | | Lymphocytes | performed at [facility], [address] | K/uL | LAB | | | | [address], | | | | | | [place] [address] | | | | + + + + + + | Absolute | 1.18 (H)Comment: Testing | 0.00 - 0.80 | EXTERNAL | | | Monocytes | performed at [facility], [address] | K/uL | LAB | | | | [address], | | | | | | [place] [address] | | | | + + + + + + | Absolute | 0.53 (H)Comment: Testing | 0.00 - 0.50 | EXTERNAL | | | Eosinophils | performed at [facility], [address] | K/uL | LAB | | | | [address], | | | | | | [place] [address] | | | | + + + + + + | Platelet | INCREASEDComment: | | EXTERNAL | | | Estimate | Testing performed at | | LAB | | | | [facility], [address] [facility] | | | | | | [place] | | | | | | [address] | | | | + + + + + + | RBC | NORMAL PLT MORPHComment: | | EXTERNAL | | | Morphology | NORMAL RBC MORPHTesting | | LAB | | | | performed at [facility], [address] | | | | | [address], | | | | | | [place] [address] | | | | + + + [...] | | | | | [place] [address] | | | | + + + + + + | K | 3.8Comment: Testing | 3.5 - 4.9 | EXTERNAL | | | | performed at [facility], [address] | mmol/L | LAB | | | | [place] [address], | | | | | | [place] [address] | | | | + + + + + + | Cl | 102Comment: Testing | 99 - 109 mmol/L | EXTERNAL | | | | performed at [facility], [address] | | LAB | | | | [address], | | | | | | [place] [address] | | | | + + + + + + | CO2 | 29Comment: Testing | 23 - 32 mmol/L | EXTERNAL | | | | performed at [facility], [address] | | LAB | | | | [address], | | | | | | [place] [address] | | | | + + + + + + | Anion Gap | 10Comment: Testing | 5 - 20 mmol/L | EXTERNAL | | | | performed at [facility], [address] | | LAB | | | | [address], | | | | | | [place] [address] | | | | + + + + + + | Glucose, | 99Comment: Testing | 65 - 99 mg/dL | EXTERNAL | | | Fasting | performed at [facility], [address] | | LAB | | | | [address], | | | | | | [place] [address] | | | | + + + + + + | BUN | 8Comment: Testing | 8 - 25 mg/dL | EXTERNAL | | | | performed at [facility], [address] | | LAB | | | | [address], | | | | | | [place] [address] | | | | + + + + + + | Creatinine | 0.59Comment: Testing | 0.50 - 1.00 | EXTERNAL | | | | performed at [facility], [address] | mg/dL | LAB | | | | [address], | | | | | | [place] [address] | | | | + + + + + + | BUN/Creatin | 14Comment: Testing | | EXTERNAL | | | ine Ratio | performed at [facility], [address] | | LAB | | | | [address], | | | | | | [place] [address] | | | | + + + + + + | Calcium | 8.7Comment: Testing | 8.5 - 10.5 | EXTERNAL | | | | performed at [facility], [address] | mg/dL | LAB | | | | [address], | | | | | | [place] [address] | | | | + + + [...] | | | | | | at [facility], [address] | | | | | | [place] [address], | | | | | | [place] [address] | | | | + + + [...] the arterial phase data set by the time study technologist. IV | | | contrast: 100 [...] Rad Conversion - 01/04/2019 8:49 AM PDT [place] | | FemaleCTA NECK W CONTRAST10/09/2014 4:23 PM HISTORY: Abnormal carotid Doppler | | ultrasound. COMPARISON: None. TECHNIQUE:Axial 1.25 mm arterial phase images were | | acquired through the neck according to a CT angiography protocol. Multiplanar CT | | angiographic MIP reconstructions were performed from the arterial phase data set by the | | time study technologist.IV contrast: 100 mL IsoVue 370 FINDINGS: [...] Rad Conversion - 01/04/2019 8:49 AM PDT [facility] | | CONTRAST10/09/2014 4:06 PM [...] [place] | | | | | | [address] | | | | + + + + + + | HEP B | NON REACTIVEComment: | | EXTERNAL | | | SURFACE | Testing performed at | | LAB | | | ANTIBODY | [facility], [address] | | | | | | [place] | | | | | | [address] | | | | + + + + + + | Hepatitis B | NON REACTIVEComment: | | EXTERNAL | | | Core Ab | Testing performed at | | LAB | | | Total | [facility], [address] | | | | | | [place] | | | | | | [address] | | | | + + + [...] | | | | | performed at [facility], [facility] [address] | | | | | | [facility] [place], | | | | | | [place] [address] | | | | + + + + + + | HCV Ab | NON REACTIVEComment: | | EXTERNAL | | | | Testing performed at | | LAB | | | | [facility], [address] [facility] | | | | | | [place] | | | | | | [address] | | | | + + + [...] at | | | | | | [facility], [address] [facility] | | | | | | [place], [place] | | | | | | [address] | | | | + + + [...] | | | | | performed at [facility], [address] | | | | | | [facility], | | | | | | [place] [address] | | | | + + + [...] umol/L | LAB | | | | [facility] | | | | | | [place] [address] | | | | + + + + + + | [place] [phone], | REAL TIME PCRComment: | | EXTERNAL | | | Result | Testing performed at | | LAB | | | | [facility], [address] | | | | | | [place] | | | | | | [address] | | | | + + + + + + | [place] [id number], | NEGATIVEComment: Testing | | EXTERNAL | | | Result | performed at [facility], [address] | | LAB | | | | [address] | | | | | | [place] [address] | | | | + + + + + + | [place] [phone], | SEE BELOWComment: THE | | EXTERNAL [...] | | | | | performed at [facility], [address] | | | | | | [place] | | | | | | [place] [address] | | | | + + + + + + | [place] [phone] | SEE BELOWComment: THIS | | EXTERNAL | | | COM 1 | TEST WAS DEVELOPED AND | | LAB | | | | ITS PERFORMANCE | | | | | | CHARACTERISTICS | | | | | | DETERMINEDBY [facility]. THE | | | | | | [...] | | | | | | DECISIONS. [facility] IS | | | | | | AUTHORIZED UNDERCLINICAL | | | | | | LABORATORY IMPROVEMENT | | | | | | AMENDMENTS (CLIA) TO | | | | | | PERFORMHIGH-COMPLEXITY | | | | | | TESTING.THIS TEST IS | | | | | | PERFORMED BY REAL TIME | | | | | | PCR USING THE Proxama | | | | | | LIGHTCYCLERINSTRUMENT. [...] | | | | | performed at [facility], [address] | | | | | | [place] | | | | | | [place] [address] | | | | + + + [...] | | | | | | [place] [address] | | | | | | | [...] | | | | | performed at [facility], [address] | | | | | | [place] | | | | | | [place] [address] | | | | + + + + + + | Activated | 2.4Comment: A RATIO OF | | EXTERNAL | | | Protein C | LESS THAN 2.0 IS | | LAB | | | Resistance | SUGGESTIVE OF APC | | | | | | RESISTANCE.Testing | | | | | | performed at [facility] | | | | | | [facility], | | | | | | [address] , [place] | | | | | | [address] | | | | + + + + + + | Protein C | 95Comment: Testing | 70 - 145 % | EXTERNAL | | | activity | performed at [facility] | | LAB | | | | [facility], | | | | | | [address], [place] | | | | | | [address] | | | | + + + + + + | Protein S | 98Comment: Testing | 59 - 153 % | EXTERNAL | | | activity | performed at [facility] | | LAB | | | | [facility], | | | | | | [address], [place] | | | | | | [address] | | | | + + + + + + | Antithrombi | 116Comment: Testing | 85 - 126 % | EXTERNAL | | | n III | performed at [facility] | | LAB | | | Activity | [facility], | | | | | | [address], [place] | | | | | | [address] | | | | + + + + + + | Antithrombi | 88Comment: Testing | 70 - 110 % | EXTERNAL | | | n III | performed at [facility] | | LAB | | | Antigen | [facility], | | | | | | [address], [place] | | | | | | [address] | | | | + + + + + + | PROTIME PAT | 14.8 (H)Comment: Testing | 12.0 - 14.2 sec | EXTERNAL | | | 0 MINS | performed at [facility] | | LAB | | | | [facility], | | | | | | [address], [place] | | | | | | [address] | | | | + + + [...] | | | performed at [facility] | | | | | | [facility], | | | | | | [address], [place] | | | | | | [address] | | | | + + + + + + | Thrombin | 15.2 (L)Comment: Testing | 15.6 - 20.0 sec | EXTERNAL | | | Time, | performed at [facility] | | LAB | | | Patient | [facility], | | | | | | [address], [place] | | | | | | [address] | | | | + + + + + + | aPTT, | 42 (H)Comment: Testing | 26 - 36 sec | EXTERNAL | | | Patient | performed at [facility] | | LAB | | | | [facility], | | | | | | [address], [place] | | | | | | [address] | | | | + + + + + + | PTT, | 31Comment: Testing | sec | EXTERNAL | | | Control | performed at [facility] | | LAB | | | Plasma | [facility], | | | | | | [address], [place] | | | | | | [address] | | | | + + + [...] | | | performed at [facility] | | | | | | [facility], | | | | | | [address], [place] | | | | | | [address] | | | | + + + + + + | Dilute | 51.2 (H)Comment: Testing | 31.8 - 45.7 sec | EXTERNAL | | | Arma | performed at [facility] | | LAB | | | Viper Venom | [facility], | | | | | Time | [address] | | | | | | [address] | | | | + + + + + + | dRVVT, Mix | 1.2Comment: RATIOS LESS | 0.0 - 1.2 | EXTERNAL | | | ratio | THAN OR EQUAL TO 1.2 ARE | | LAB | | | | NEGATIVE FOR THE LUPUS | | | | | | INHIBITOR.Testing | | | | | | performed at [facility] | | | | | | [facility], | | | | | | [address], [place] | | | | | | [address] | | | | + + + [...] | | | performed at [facility] | | | | | | [facility], | | | | | | [address], [facility] | | | | | | [address] | | | | + + + + + + | Reviewed By | SEE BELOWComment: | | EXTERNAL | | | | OBEY PAULINO JR., | | LAB | | | | M.D.Testing performed at | | | | | | [facility] | | | | | | [place], [address], | | | | | | [facility] [address] | | | | + + + [...] K/uL | LAB | | | | [facility];[address] | | | | | | [place] [address] | | | | + + + + + + | Red Blood | 3.66 (L)Comment: Testing | 3.70 - 5.10 | EXTERNAL | | | Cells | performed at [facility];[address] | M/uL | LAB | | | Counted | [address];[place] | | | | | | [address] | | | | + + + + + + | Hemoglobin | 11.2 (L)Comment: Testing | 11.3 - 15.5 | EXTERNAL | | | | performed at [facility];888 | g/dL | LAB | | | | [address];[place] | | | | | | [address] | | | | + + + + + + | Hematocrit, | 33.0 (L)Comment: Testing | 34.0 - 46.0 % | EXTERNAL | | | POC | performed at [facility];[address] | | LAB | | | | [address];[place] | | | | | | [address] | | | | + + + + + + | MCV | 90.2Comment: Testing | 80.0 - 100.0 fl | EXTERNAL | | | | performed at [facility];[address] | | LAB | | | | [address];[place] | | | | | | [address] | | | | + + + + + + | MCH | 30.7Comment: Testing | 27.0 - 34.0 pg | EXTERNAL | | | | performed at [facility];[address] | | LAB | | | | [address];[place] | | | | | | [address] | | | | + + + + + + | MCHC | 34.0Comment: Testing | 32.0 - 35.5 | EXTERNAL | | | | performed at [facility];888 | g/dL | LAB | | | | [address];[place] | | | | | | [address] | | | | + + + + + + | RDW-CV | 39.4Comment: Testing | 37 - 53 fl | EXTERNAL | | | | performed at [facility];[address] | | LAB | | | | [address];[place] | | | | | | [address] | | | | + + + + + + | Platelet | 495 (H)Comment: Testing | 150 - 400 K/uL | EXTERNAL | | | Count | performed at [facility];[address] | | LAB | | | Plasma | [address];[place] | | | | | | [address] | | | | + + + + + + | MPV | 7.4Comment: Testing | fl | EXTERNAL | | | | performed at [facility];[address] | | LAB | | | | [address];[place] | | | | | | [address] | | | | + + + + + + | Differentia | MANUALComment: Testing | | EXTERNAL | | | l Type | performed at [facility];[address] | | LAB | | | | [address];[place] | | | | | | [address] | | | | + + + + + + | Nucleated | 1 (H)Comment: Testing | /100WBC | EXTERNAL | | | Red Blood | performed at [facility];[address] | | LAB | | | Cells | [address];[place] | | | | | | [address] | | | | + + + + + + | Segmented | 69Comment: Testing | % | EXTERNAL | | | Neutrophils | performed at [facility];[address] | | LAB | | | Manual | [address];[place] | | | | | | [address] | | | | + + + + + + | % Bands | 1Comment: Testing | % | EXTERNAL | | | | performed at [facility];[address] | | LAB | | | | [address];[place] | | | | | | [address] | | | | + + + + + + | % | 1Comment: Testing | % | EXTERNAL | | | Myelocytes | performed at [facility];[address] | | LAB | | | | [address];[place] | | | | | | [address] | | | | + + + + + + | Lymphocytes | 19Comment: Testing | % | EXTERNAL | | | Manual | performed at [facility];[address] | | LAB | | | | [address];[place] | | | | | | [address] | | | | + + + + + + | Monocytes | 6Comment: Testing | % | EXTERNAL | | | Manual | performed at [facility];[address] | | LAB | | | | [address];[place] | | | | | | [address] | | | | + + + + + + | Eosinophils | 4Comment: Testing | % | EXTERNAL | | | Manual | performed at [facility];[address] | | LAB | | | | [address];[place] | | | | | | [address] | | | | + + + + + + | Absolute | 8.93 (H)Comment: Testing | 1.90 - 7.40 | EXTERNAL | | | Neutrophils | performed at [facility];[address] | K/uL | LAB | | | | [address];[place] | | | | | | [address] | | | | + + + + + + | Bands | 0.13Comment: Testing | 0.00 - 0.20 | EXTERNAL | | | Manual | performed at [facility];[address] | K/uL | LAB | | | | [address];[place] | | | | | | [address] | | | | + + + + + + | Absolute | 0.13 (H)Comment: Testing | K/uL | EXTERNAL | | | Myelocytes | performed at [facility];[address] | | LAB | | | | [address];[place] | | | | | | [address] | | | | + + + + + + | Absolute | 2.46Comment: Testing | 1.00 - 3.90 | EXTERNAL | | | Lymphocytes | performed at [facility];[address] | K/uL | LAB | | | | [address];[place] | | | | | | [address] | | | | + + + + + + | Absolute | 0.78Comment: Testing | 0.00 - 0.80 | EXTERNAL | | | Monocytes | performed at [facility];[address] | K/uL | LAB | | | | [address];[place] | | | | | | [address] | | | | + + + + + + | Absolute | 0.52 (H)Comment: Testing | 0.00 - 0.50 | EXTERNAL | | | Eosinophils | performed at [facility];[address] | K/uL | LAB | | | | [address];[place] | | | | | | [address] | | | | + + + + + + | Platelet | INCREASEDComment: | | EXTERNAL | | | Estimate | Testing performed at | | LAB | | | | [facility];[address] | | | | [address];[place] [address] | | | | + + + + + + | RBC | RBC AND PLT MORPHOLOGY | | EXTERNAL | | | Morphology | APPEAR NORMALComment: | | LAB | | | | Testing performed at | | | | | | [facility];[address] [facility] | | | | | | Bl;[place] [address] | | | | + + + [...] EXTERNAL | | | | performed at [facility];888 | uIU/mL | LAB | | | | [address];[place], [place] | | | | | | [address] | | | | + + + [...] | | | B-12 | performed at [facility], [address] | pg/mL | LAB | | | | [place], | | | | | | [place] [address] | | | | + + + [...] EXTERNAL | | | | performed at [facility];888 | mmol/L | LAB | | | | [address];[place] | | | | | | [address] | | | | + + + + + + | K | 3.5Comment: Testing | 3.5 - 4.9 | EXTERNAL | | | | performed at [facility];888 | mmol/L | LAB | | | | [address];[place] | | | | | | [address] | | | | + + + + + + | Cl | 104Comment: Testing | 99 - 109 mmol/L | EXTERNAL | | | | performed at [facility];[address] | | LAB | | | | [address];[place] | | | | | | [address] | | | | + + + + + + | CO2 | 28Comment: Testing | 23 - 32 mmol/L | EXTERNAL | | | | performed at [facility];[address] | | LAB | | | | [address];[place] | | | | | | [address] | | | | + + + + + + | Anion Gap | 11Comment: Testing | 5 - 20 mmol/L | EXTERNAL | | | | performed at [facility];[address] | | LAB | | | | [address];[place] | | | | | | [address] | | | | + + + + + + | Glucose, | 115 (H)Comment: Testing | 65 - 99 mg/dL | EXTERNAL | | | Fasting | performed at [facility];[address] | | LAB | | | | [address];[place] | | | | | | [address] | | | | + + + + + + | BUN | 5 (L)Comment: Testing | 8 - 25 mg/dL | EXTERNAL | | | | performed at [facility];[address] | | LAB | | | | [address];[place] | | | | | | [address] | | | | + + + + + + | Creatinine | 0.63Comment: Testing | 0.50 - 1.00 | EXTERNAL | | | | performed at [facility];[address] | mg/dL | LAB | | | | [address];[place] | | | | | | [address] | | | | + + + + + + | BUN/Creatin | 7Comment: Testing | | EXTERNAL | | | ine Ratio | performed at [facility];[address] | | LAB | | | | [address];[place] | | | | | | [address] | | | | + + + + + + | Calcium | 8.5Comment: Testing | 8.5 - 10.5 | EXTERNAL | | | | performed at [facility];[address] | mg/dL | LAB | | | | [address];[place] | | | | | | [address] | | | | + + + [...] | | | | | | at [facility];[address] [place] [address] | | | | | | [facility];[place] [address] | | | | + + + [...] not well visualized. MEASUREMENTS | | | Government Property Inspector: JAIME Authenticated by: Dorina Varma | | [...] was not well visualized. | | MEASUREMENTS Government Property Inspector: Savanahted by: Dorina Varma [facility] | | Date/Time: 10-08-2014 21:45:59 IMPRESSION: [...] | |MEASUREMENTS | | | | | |Government Property Inspector: JAIME | |Authenticated by: Dorina Varma MD [...] | | | | | performed at [facility];[address] | | | | | | [facility];[place], [place] | | | | | | [address] | | | | + + + [...] without contrast. | | | A 3D oetf-jd-boitlx MRA sequence was acquired through the head. [...] posterior cerebral artery: Normal. | | | [place]: Anterior communicating artery: Normal. Right [...] Rad Conversion - 01/04/2019 8:49 AM PDT [facility] | | CONTRAST10/08/2014 9:14 AM HISTORY:24 years. Female. 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 History of intravenous drug use. TECHNIQUE:Imaging was | | performed on a 1.5 Jennie MRI system. Multiplanar sequences were acquired according to a | | standard department protocol without contrast. A 3D uboc-fp-zhyvmz MRA sequence was | | acquired through [...] Normal.Left posterior | | cerebral artery: Normal. [place]:Anterior communicating artery: Normal.Right | | [...] posterior cerebral artery: Normal. | | | |[place]: | |Anterior communicating artery: Normal. [...] | | | | [facility], [address] | | | | | | [place] | | | | | | [address] | | | | + + + + + + | Red Blood | 3.66 (L)Comment: Testing | 3.70 - 5.10 | EXTERNAL | | | Cells | performed at [facility], [address] | M/uL | LAB | | | Counted | [address], | | | | | | [place] [address] | | | | + + + + + + | Hemoglobin | 10.9 (L)Comment: Testing | 11.3 - 15.5 | EXTERNAL | | | | performed at [facility], [address] | g/dL | LAB | | | | [address], | | | | | | [place] [address] | | | | + + + + + + | Hematocrit, | 32.8 (L)Comment: Testing | 34.0 - 46.0 % | EXTERNAL | | | POC | performed at [facility], [address] | | LAB | | | | [address], | | | | | | [place] [address] | | | | + + + + + + | MCV | 89.6Comment: Testing | 80.0 - 100.0 fl | EXTERNAL | | | | performed at [facility], [address] | | LAB | | | | [address], | | | | | | [place], [place] [address] | | | | + + + + + + | MCH | 29.9Comment: Testing | 27.0 - 34.0 pg | EXTERNAL | | | | performed at [facility], [address] | | LAB | | | | [address], | | | | | | [place] [address] | | | | + + + + + + | MCHC | 33.3Comment: Testing | 32.0 - 35.5 | EXTERNAL | | | | performed at [facility], [address] | g/dL | LAB | | | | [address], | | | | | | [place] [address] | | | | + + + + + + | RDW-CV | 39.8Comment: Testing | 37 - 53 fl | EXTERNAL | | | | performed at [facility], [address] | | LAB | | | | [address], | | | | | | [place] [address] | | | | + + + + + + | Platelet | 420 (H)Comment: Testing | 150 - 400 K/uL | EXTERNAL | | | Count | performed at [facility], [address] | | LAB | | | Plasma | [address], | | | | | | [place] [address] | | | | + + + + + + | MPV | 7.9Comment: Testing | fl | EXTERNAL | | | | performed at [facility], [address] | | LAB | | | | [address], | | | | | | [place] [address] | | | | + + + + + + | Differentia | AUTOMATEDComment: | | EXTERNAL | | | l Type | Testing performed at | | LAB | | | | [facility], [address] [facility] | | | | | | [place] | | | | | | [address] | | | | + + + + + + | % Segmented | 68.47Comment: Testing | % | EXTERNAL | | | | performed at [facility], [address] | | LAB | | | Neutrophils | [address], | | | | | | [place] [address] | | | | + + + + + + | % | 15.86Comment: Testing | % | EXTERNAL | | | Lymphocytes | performed at [facility], [address] | | LAB | | | | [address], | | | | | | [place] [address] | | | | + + + + + + | % Monocytes | 13.16Comment: Testing | % | EXTERNAL | | | | performed at [facility], [address] | | LAB | | | | [address], | | | | | | [place] [address] | | | | + + + + + + | % | 1.80Comment: Testing | % | EXTERNAL | | | Eosinophils | performed at [facility], [address] | | LAB | | | | [address], | | | | | | [place] [address] | | | | + + + + + + | % Basophils | 0.71Comment: Testing | % | EXTERNAL | | | | performed at [facility], [address] | | LAB | | | | [address], | | | | | | [place] [address] | | | | + + + + + + | Absolute | 11.92 (H)Comment: | 1.90 - 7.40 | EXTERNAL | | | Segmented | Testing performed at | K/uL | LAB | | | Neutrophils | [facility], [address] | | | | | | [place] | | | | | | [address] | | | | + + + + + + | Absolute | 2.76Comment: Testing | 1.00 - 3.90 | EXTERNAL | | | Lymphocytes | performed at [facility], [address] | K/uL | LAB | | | | [address], | | | | | | [place] [address] | | | | + + + + + + | Absolute | 2.29 (H)Comment: Testing | 0.00 - 0.80 | EXTERNAL | | | Monocytes | performed at [facility], [address] | K/uL | LAB | | | | [address], | | | | | | [place] [address] | | | | + + + + + + | Absolute | 0.31Comment: Testing | 0.00 - 0.50 | EXTERNAL | | | Eosinophils | performed at [facility], [address] | K/uL | LAB | | | | [address], | | | | | | [place] [address] | | | | + + + + + + | Absolute | 0.12 (H)Comment: Testing | 0.00 - 0.10 | EXTERNAL | | | Basophils | performed at [facility], [address] | K/uL | LAB | | | | [address], | | | | | | [place] [address] | | | | + + + [...] EXTERNAL | | | | performed at [facility], [address] | | LAB | | | | [place], | | | | | | [place] [address] | | | | + + + [...] | | | | | [place] [address] | | | | + + + + + + | Triglycerid | 47Comment: Testing | mg/dL | EXTERNAL | | | es | performed at [facility], [address] | | LAB | | | | [address], | | | | | | [place] [address] | | | | + + + + + + | HDL | 36 (L)Comment: Testing | mg/dL | EXTERNAL | | | | performed at [facility], [address] | | LAB | | | | [address], | | | | | | [place] [address] | | | | + + + + + + | LDL, | 44Comment: Testing | mg/dL | EXTERNAL | | | Calculated | performed at [facility], [address] | | LAB | | | | [address], | | | | | | [place] [address] | | | | + + + [...] | | | | | [place] [address] | | | | + + + + + + | K | 3.5Comment: Testing | 3.5 - 4.9 | EXTERNAL | | | | performed at [facility], [address] | mmol/L | LAB | | | | [address], | | | | | | [place] [address] | | | | + + + + + + | Cl | 102Comment: Testing | 99 - 109 mmol/L | EXTERNAL | | | | performed at [facility], [address] | | LAB | | | | [address], | | | | | | [place] [address] | | | | + + + + + + | CO2 | 26Comment: Testing | 23 - 32 mmol/L | EXTERNAL | | | | performed at [facility], [address] | | LAB | | | | [address], | | | | | | [place] [address] | | | | + + + + + + | Anion Gap | 11Comment: Testing | 5 - 20 mmol/L | EXTERNAL | | | | performed at [facility], [address] | | LAB | | | | [address], | | | | | | [place] [address] | | | | + + + + + + | Glucose, | 103 (H)Comment: Testing | 65 - 99 mg/dL | EXTERNAL | | | Fasting | performed at [facility], [address] | | LAB | | | | [address], | | | | | | [place] [address] | | | | + + + + + + | BUN | 4 (L)Comment: Testing | 8 - 25 mg/dL | EXTERNAL | | | | performed at [facility], [address] | | LAB | | | | [address], | | | | | | [place] [address] | | | | + + + + + + | Creatinine | 0.61Comment: Testing | 0.50 - 1.00 | EXTERNAL | | | | performed at [facility], [address] | mg/dL | LAB | | | | [address], | | | | | | [place] [address] | | | | + + + + + + | BUN/Creatin | 7Comment: Testing | | EXTERNAL | | | ine Ratio | performed at [facility], [address] | | LAB | | | | [address], | | | | | | [place] [address] | | | | + + + + + + | Calcium | 8.1 (L)Comment: Testing | 8.5 - 10.5 | EXTERNAL | | | | performed at [facility], [address] | mg/dL | LAB | | | | [address], | | | | | | [place] [address] | | | | + + + [...] [address], | | | | | | [place] [address] | | | | + + + [...] | | | | | performed at [facility] | | | | | | [facility];[place], [place] | | | | | | [address] | | | | + + + [...] | | | Screen, | performed at [facility];[address] | | | | | UA, POC | [address];[place], [place] | | | | | | [address] | | | | + + + + + + | Barbiturate | NEGATIVEComment: | | EXTERNAL | | | s Screen, | Positive cutoff for | | LAB | | | Urine | ROMY = 200 ng/mLTesting | | | | | | performed at [facility];[address] | | | | | | [address];[place] | | | | | | [address] | | | | + + + + + + | Benzodiazep | NEGATIVEComment: | | EXTERNAL | | | hanna | Positive cutoff for | | LAB | | | Screen, | BENZO = 200 ng/mLTesting | | | | | Urine | performed at [facility];[address] | | | | | | [address];[place] | | | | | | [address] | | | | + + + + + + | Cocaine | NEGATIVEComment: | | EXTERNAL | | | | Positive cutoff for | | LAB | | | | LOIS = 300 ng/mLTesting | | | | | | performed at [facility];[address] | | | | | | [address];[place] | | | | | | [address] | | | | + + + + + + | Methadone | NEGATIVEComment: | | EXTERNAL | | | | Positive cutoff for | | LAB | | | | MTD = 300 ng/mLTesting | | | | | | performed at [facility];[address] | | | | | | [address];[place] | | | | | | [address] | | | | + + + + + + | Opiates | POSITIVE (A)Comment: | | EXTERNAL | | | | Positive cutoff for | | LAB | | | | OPI = 300 ng/mLTesting | | | | | | performed at [facility];[address] | | | | | | [address];[place] | | | | | | [address] | | | | + + + + + + | PCP | NEGATIVEComment: | | EXTERNAL | | | | Positive cutoff for PCP | | LAB | | | | = 25 ng/mLTesting | | | | | | performed at [facility];[address] | | | | | | [address];[place] | | | | | | [address] | | | | + + + [...] | | | | | performed at [facility] | | | | | | [facility];[place], [place] | | | | | | [address] | | | | + + + [...] Excursion: 2.53 | | | cm E-F Wells: 0.12 m/s HR: 88.02 BPM AV maxP.15 [...] Vmean: 0.37 m/s TV VTI: 15.39 cm Government Property Inspector: | | | Authenticated by: Chaitanya Coronado MD, FACC, FACP, FASNM Report | | | Date/Time: -- [id number] | | + + + + + | Procedure Note | + + | Sylvain Alas Conversion - 01/04/2019 8:49 AM PDT Patient Name: Fili SPENCER of | | : 1990 Performing Physician: Chaitanya Coronado MD, [facility], | | FACP, | | FASNC INDICATIONS--------- [...] mlLAESV Index (A-L): 17.07 ml/m2LAAs A2C: 14.36 [id number] A-L | | A2C: 40.15 mlLAESV MOD A2C: 36.70 mlLALs A2C: 4.36 cmLAAs A4C: 12.15 [id number] | | A-L A4C: 27.59 mlLAESV MOD A4C: 22.57 mlLALs A4C: 4.54 cmAo Diam: 2.79 cmAV | | Cusp: 2.15 cmLA Diam: 3.49 cmLA/Ao: 1.25%FS: 32.16 %EDV(Teich): 108.67 | | mlEF(Teich): 60.24 %ESV(Teich): 43.20 mlIVSd: 0.78 cmIVSs: 1.29 cmLVIDd: 4.82 | | cmLVIDs: 3.27 cmLVPWd: 0.76 cmLVPWs: 1.46 cmSV(Teich): 65.47 mlD-E Excursion: | | 2.53 cmE-F Wells: 0.12 m/sHR: 88.02 BPMAV maxP.15 mmHgAV meanP.87 mmHgAV | | Vmax: 1.42 m/Jerry Vmean: 1.05 m/Jerry VTI: 27.43 cmAVA Vmax: 2.09 cm2AVA (VTI): | | 2.06 [id number] Dopp: 2.28 l/[id number] Dopp: 4.55 l/minHR: 80.27 BPMLVOT maxPG: | [...] 0.37 m/sTV VTI: 15.39 cm | | Government Property Inspector: ASAuthenticated by: Chaitanya Coronado MD, FACC, FACP, FASNCReport Date/Time: | | -- [id number] IMPRESSION: 1. Overall left ventricular systolic function [...] | |D-E Excursion: 2.53 cm | |E-F Wells: 0.12 m/s | |HR: 88.02 BPM | [...] |TV VTI: 15.39 cm | | | |Government Property Inspector: | |Authenticated by: Chaitanya Coronado MD, FAC, FACP, [facility] | |Report Date/Time: -- [id number] | | | |IMPRESSION: | |1. Overall [...] | EXTERNAL LAB | | performed at [facility];[address];[place] [address] 027 NAP1 BI | | | 027 NAP1 BI PRESUMPTIVE NEGATIVE | | | Detection of 027 NAP1 BI strains of C. difficile is presumptive and | | | for epidemiological purposes and not intended to guide or monitor | | | treatment for C. difficile infections. Testing performed at [facility];[address] | | | [facility];[place] [address] | | + + + + +---------+ [...] At | + + + | [facility] BRAIN WO CONTRAST 10/07/2014 1:07 PM HISTORY: [...] Sylvain Alas Conversion - 01/04/2019 8:49 [facility] | | CONTRAST10/07/2014 1:07 PM [...] AC | | | Testing performed at [facility];[address] | | | [place] [address] CULTURE | | | NO GROWTH | | | Testing performed at [facility], [address] [place], [place] | | | [address] | | + + + + +---------+ [...] AC | | | Testing performed at [facility];[address];[place] [address] CULTURE | | | NO GROWTH | | | Testing performed at [facility], [address], [place] | | | [address] | | + + + + +---------+ [...] | | | | [facility], [address] | | | | | | [place] | | | | | | [address] | | | | + + + + + + | Red Blood | 3.82Comment: Testing | 3.70 - 5.10 | EXTERNAL | | | Cells | performed at [facility], [address] | M/uL | LAB | | | Counted | [place], | | | | | | [place] [address] | | | | + + + + + + | Hemoglobin | 11.5Comment: Testing | 11.3 - 15.5 | EXTERNAL | | | | performed at [facility], [address] | g/dL | LAB | | | | [place], | | | | | | [place] [address] | | | | + + + + + + | Hematocrit, | 34.3Comment: Testing | 34.0 - 46.0 % | EXTERNAL | | | POC | performed at [facility], [address] | | LAB | | | [address], | | | | | | [place] [address] | | | | + + + + + + | MCV | 89.8Comment: Testing | 80.0 - 100.0 fl | EXTERNAL | | | | performed at [facility], [address] | | LAB | | | | [address], | | | | | | [place] [address] | | | | + + + + + + | MCH | 30.2Comment: Testing | 27.0 - 34.0 pg | EXTERNAL | | | | performed at [facility], [address] | | LAB | | | | [address], | | | | | | [place] [address] | | | | + + + + + + | MCHC | 33.7Comment: Testing | 32.0 - 35.5 | EXTERNAL | | | | performed at [facility], [address] | g/dL | LAB | | | | [address], | | | | | | [place] [address] | | | | + + + + + + | RDW-CV | 38.5Comment: Testing | 37 - 53 fl | EXTERNAL | | | | performed at [facility], [address] | | LAB | | | | [address], | | | | | | [place] [address] | | | | + + + + + + | Platelet | 380Comment: Testing | 150 - 400 K/uL | EXTERNAL | | | Count | performed at [facility], [address] | | LAB | | | Plasma | [address], | | | | | | [place] [address] | | | | + + + + + + | MPV | 8.1Comment: Testing | fl | EXTERNAL | | | | performed at [facility], [address] | | LAB | | | | [address], | | | | | | [place] [address] | | | | + + + + + + | Differentia | MANUALComment: Testing | | EXTERNAL | | | l Type | performed at [facility], [address] | | LAB | | | | [address], | | | | | | [place] [address] | | | | + + + + + + | Segmented | 69Comment: Testing | % | EXTERNAL | | | Neutrophils | performed at [facility], [address] | | LAB | | | Manual | [address], | | | | | | [place] [address] | | | | + + + + + + | % Bands | 4Comment: Testing | % | EXTERNAL | | | | performed at [facility], [address] | | LAB | | | | [address], | | | | | | [place] [address] | | | | + + + + + + | Lymphocytes | 15Comment: Testing | % | EXTERNAL | | | Manual | performed at [facility], [address] | | LAB | | | | [address], | | | | | | [place] [address] | | | | + + + + + + | Monocytes | 12Comment: Testing | % | EXTERNAL | | | Manual | performed at [facility], [address] | | LAB | | | | [address], | | | | | | [place] [address] | | | | + + + + + + | Absolute | 13.47 (H)Comment: | 1.90 - 7.40 | EXTERNAL | | | Neutrophils | Testing performed at | K/uL | LAB | | | | [facility], [address] | | | | | | [place] | | | | | | [address] | | | | + + + + + + | Bands | 0.78 (H)Comment: Testing | 0.00 - 0.20 | EXTERNAL | | | Manual | performed at [facility], [address] | K/uL | LAB | | | | [address], | | | | | | [place] [address] | | | | + + + + + + | Absolute | 2.93Comment: Testing | 1.00 - 3.90 | EXTERNAL | | | Lymphocytes | performed at [facility], [address] | K/uL | LAB | | | | [address], | | | | | | [place] [address] | | | | + + + + + + | Absolute | 2.34 (H)Comment: Testing | 0.00 - 0.80 | EXTERNAL | | | Monocytes | performed at [facility], [address] | K/uL | LAB | | | | [address], | | | | | | [place] [address] | | | | + + + + + + | RBC | RBC AND PLT MORPHOLOGY | | EXTERNAL | | | Morphology | APPEAR NORMALComment: | | LAB | | | | Testing performed at | | | | | | [facility], [address] | | | | | | [place] | | | | | | [address] | | | | + + + [...] EXTERNAL | | | | performed at [facility], [address] | | LAB | | | | [address], | | | | | | [place] [address] | | | | + + + [...] EXTERNAL | | | | performed at [facility], [address] | | LAB | | | | [address], | | | | | | [place] [address] | | | | + + + [...] | | | | | [place] [address] | | | | + + + + + + | K | 2.9 (L)Comment: Testing | 3.5 - 4.9 | EXTERNAL | | | | performed at [facility], [address] | mmol/L | LAB | | | | [address], | | | | | | [place] [address] | | | | + + + + + + | Cl | 102Comment: Testing | 99 - 109 mmol/L | EXTERNAL | | | | performed at [facility], [address] | | LAB | | | | [address], | | | | | | [place] [address] | | | | + + + + + + | CO2 | 24Comment: Testing | 23 - 32 mmol/L | EXTERNAL | | | | performed at [facility], [address] | | LAB | | | | [address], | | | | | | [place] [address] | | | | + + + + + + | Anion Gap | 11Comment: Testing | 5 - 20 mmol/L | EXTERNAL | | | | performed at [facility], [address] | | LAB | | | | [address], | | | | | | [place] [address] | | | | + + + + + + | Glucose, | 138 (H)Comment: Testing | 65 - 99 mg/dL | EXTERNAL | | | Fasting | performed at [facility], [address] | | LAB | | | | [address], | | | | | | [place] [address] | | | | + + + + + + | BUN | 3 (L)Comment: Testing | 8 - 25 mg/dL | EXTERNAL | | | | performed at [facility], [address] | | LAB | | | | [address], | | | | | | [place] [address] | | | | + + + + + + | Creatinine | 0.66Comment: Testing | 0.50 - 1.00 | EXTERNAL | | | | performed at [facility], [address] | mg/dL | LAB | | | | [address], | | | | | | [place] [address] | | | | + + + + + + | BUN/Creatin | 5Comment: Testing | | EXTERNAL | | | ine Ratio | performed at [facility], [address] | | LAB | | | | [address], | | | | | | [place] [address] | | | | + + + + + + | Calcium | 8.5Comment: Testing | 8.5 - 10.5 | EXTERNAL | | | | performed at [facility], [address] | mg/dL | LAB | | | | [address], | | | | | | [place] [address] | | | | + + + + + + | Protein, | 6.5Comment: Testing | 6.3 - 8.2 g/dL | EXTERNAL | | | Total | performed at [facility], [address] | | LAB | | | | [address], | | | | | | [place] [address] | | | | + + + + + + | Albumin | 3.2 (L)Comment: Testing | 3.6 - 5.0 g/dL | EXTERNAL | | | | performed at [facility], [address] | | LAB | | | | [address], | | | | | | [place] [address] | | | | + + + + + + | Globulin | 3.3Comment: Testing | 1.3 - 4.9 g/dL | EXTERNAL | | | | performed at [facility], [address] | | LAB | | | | [address], | | | | | | [place] [address] | | | | + + + + + + | A/G Ratio | 1.0Comment: Testing | 1.0 - 2.4 | EXTERNAL | | | | performed at [facility], [address] | | LAB | | | | [address], | | | | | | [place] [address] | | | | + + + + + + | Bilirubin | 0.4Comment: Testing | 0.1 - 1.5 mg/dL | EXTERNAL | | | Total | performed at [facility], [address] | | LAB | | | | [address], | | | | | | [place] [address] | | | | + + + + + + | ALP, | 113Comment: Testing | 35 - 115 U/L | EXTERNAL | | | External | performed at [facility], [address] | | LAB | | | | [address], | | | | | | [place] [address] | | | | + + + + + + | AST | 56 (H)Comment: Testing | 10 - 45 U/L | EXTERNAL | | | | performed at [facility], [address] | | LAB | | | | [address], | | | | | | [place] [address] | | | | + + + + + + | ALT | 48Comment: Testing | 10 - 65 U/L | EXTERNAL | | | | performed at [facility], [address] | | LAB | | | | [address], | | | | | | [place] [address] | | | | + + + [...] W | | | | | | [facility], | | | | | | [place] [address] | | | | + + + [...] | | | Ur | performed at [facility];[address] | | LAB | | | | [address] [place] | | | | | | [address] | | | | + + + [...] EXTERNAL LAB | | Testing performed at [facility];[address] [address] MRSA PCR | | | Unable to result from PCR. | | | Culture set up.Abnormal Testing performed at [facility];[address];[place] [address] | | + + + + +---------+ [...] ISOLATED. | | | Testing performed at [facility], [address] [place], [place] | | | [address] | | + + + + +---------+ [...]
--- OUTSIDE RECORDS SUMMARY | ~2019-10-25 | XMS | Clinical Summary ---
Demographics + + + | Address | [address] | | | [place] [address] | + + + | Home Phone | | + + + | Preferred Language | Unknown | + + + | Marital Status | Single | + + + | Buddhism Affiliation | Unknown | + + + [...] Team Providers + +------+ + | Care Mid Teacher Name | Role | Phone | + +------+ + PCP | Unavailable | + +------+ + Source Comments CHAYA is fully live on both [facility] Ambulatory and [facility] InPatient.[facility] Allergies No Known Allergies Medications Not on file Active Problems Not [...] | + + Last Filed Vital Signs Not on file Plan of Treatment + + + + + | Health Maintenance | Due Date | Last Done | Comments | + + + + + | Influenza (Flu) | | | | | vaccination (#1) | 9 | | | + + + + + | Pneumococcal | Aged Out | | No longer eligible | | vaccination | | | based on patient's | | | | | age to complete this | | | | | topic | + + + + + Results Not on filefrom Last 3 Months"
--- OUTSIDE RECORDS SUMMARY | ~2019-10-25 | XMS | Encounter Summary ---
Demographics + + + | Address | [address] | | | [place] [address] | + + + | Home Phone | | + + + | Preferred Language | Unknown | + + + | Marital Status | Single | + + + | Temple Affiliation | 1041 | + + + | Race | Unknown | + + + | Ethnic Group | Unknown | + + + Author + + + | Author | [facility] | | | and [place] | + + + | Organization | [facility] | | | and [...] Team Providers + +------+ + | Care Escort Service Attendant Name | Role | Phone | + +------+ + PCP | Unavailable | + +------+ + Encounter Details +--------+ + + + + | Date | Type | Department | Care Team | Description | +--------+ + + + + | 12/28/ | Hospital | [facility] | | | | 2000 | Encounter | MED CTR XRAY [address] | | | | | | [address] | | | | | | [place] [address] | | | | | | [phone] | | | +--------+ + + + [...]
--- OUTSIDE RECORDS SUMMARY | ~2019-10-25 | XMS | Encounter Summary ---
Demographics + + + | Address | [address] | | | [place] [address] | + + + | Home Phone | | + + + | Preferred Language | Unknown | + + + | Marital Status | Single | + + + | Mandaen Affiliation | 1041 | + + + [...] Team Providers + +------+ + | Care Metal Bonder Name | Role | Phone | + [...] | | | LVM to | PA-C [address] | [address] | | | | | R/S to | | [place] F | | | | | 01/16/19 | [facility] | [place], [place] | | | | | LVM again on | WAY | [address] Phone: | | | | | 07/26/18 to | [place], | [phone] | | | | | R/S | [place] [address] | Fax: | | | | | Procedures | Phone: | [phone] | | | | | OFFICE VISIT | [phone] | | | | | | REGULAR | Fax: | | | | | | | [phone] | | +--------+--------+ + + + + Encounter Details +--------+---------+ + + + | Date | Type | Department | Care Team | Description | +--------+---------+ + + + | 01/16/ | Office | [facility] | Rufina Ohara, | Encounter for annual | | 2019 | Visit | CARDIOLOGY [place] | [address] | health examination | | | | [address] | [place], [place] | (Primary Dx); Acute | | | | [address] | [address] | CVA (cerebrovascular | | | | [place], [place] | | accident); PFO | | | | [address] | | (patent foramen | | | | [phone] | | ovale) | +--------+---------+ + + [...] also then sh juan luis lost consciousness. [facility] records were obtained, apparently patient lost consciousness [...] focal deficit normal oxygenation and hemodynamics. In [facility] again patient electrolytes, lab work, EKG and vitals were within no rmal limits. Patient has history of drug and substance abuse however she claims to be clean as of October 08. In 2014 patient was admitted to [facility] secondary to cerebrovascular accident MRI o [...] Maleate] Hives Penicillins Hives Received Rocephin at [facility] today (10/06/14) with no reaction. REVIEW OF [...] 12.8 oz) | SpO2 98% | B IA 27.73 kg/m GENERAL APPEARANCE: Alert, oriented, cooperative, [...] | | | | | by [facility] Read Only, | | | | | | [facility] (502), | | | | | | department editor Sathya Mistry | | | | | [...]
--- OUTSIDE RECORDS SUMMARY | ~2019-10-25 | XMS | Encounter Summary ---
Demographics + + + | Address | [address] | | | [place] [address] | + + + | Home Phone | | + + + | Preferred Language | Unknown | + + + | Marital Status | Single | + + + | Baptist Affiliation | 1041 | + + + | Race | Unknown | + + + | Ethnic Group | Unknown | + + + Author + + + | Author | [facility] | | | and [place] | + + + | Organization | [facility] | | | and [...] Team Providers + +------+ + | Care Production Technologist Name | Role | Phone | + +------+ + | Afua Marinelli PA-C | PCP | | + +------+ + Encounter Details +--------+ + + + + | Date | Type | Department | Care Team | Description | +--------+ + + + + | 12/26/ | Orders Only | [facility] | Conversion | | | 2018 | | CONVERSION DEP [address] | Transaction, | | | | | RANJIT JEAN-BAPTISTE | Provider Unknown | | | | | [place] | [phone] | | | | | [address] | | | | | | [phone] | | | +--------+ + + + [...]
--- OUTSIDE RECORDS SUMMARY | ~2019-10-25 | XMS | Encounter Summary ---
Demographics + + + | Address | [address] | | | [place] [address] | + + + | Home Phone | | + + + | Preferred Language | Unknown | + + + | Marital Status | Single | + + + | Faith Affiliation | Unknown | + + + [...] Team Providers + +------+ + | Care Associate Director Financial Aid Name | Role | Phone | + [...] as of this encounter Progress Notes Interface, Coil Winder Strap In - 02/19/2006 1:01 AM LJ [place] [place] [address] [place], [place] [address] or April 10, 2001 Panfilo Reece M.D. [address] [place] [address] RE: CHIQUIS SPENCER MR #: [id number] Dear Dr. Reece: It was our pleasure [...] was unable to be inserted at the [facility]. Because of these difficulties, she was referred [...] referral. Sincerely, Carl Fletcher M.D., F.A.A.P. / [id number] / [id number] / [id number] / [id number] signed by Interface, Coil Winder Strap In at 02/19/2006 1:01 AM PDTdoc umented in this encounter Plan of Treatment Not on filedocumented as of this encounter Visit Diagnoses Not on filedocumented in this encounter"
--- OUTSIDE RECORDS SUMMARY | ~2019-10-25 | XMS | Clinical Summary ---
Demographics + + + | Address | [address] | | | [place] [address] | + + + | Home Phone | | + + + | Preferred Language | Unknown | + + + | Marital Status | Single | + + + | Jew Affiliation | Unknown | + + + [...] Team Providers + +------+ + | Care Network Strategist Name | Role | Phone | + +------+ + PCP | Unavailable | + +------+ + Source Comments CHAYA is fully live on both [facility] Ambulatory and [facility] InPatient.[facility] Allergies No Known Allergies Medications Not on [...]
--- OUTSIDE RECORDS SUMMARY | ~2019-10-25 | XMS | Encounter Summary ---
Demographics + + + | Address | [address] | | | [place] [address] | + + + | Home Phone | | + + + | Preferred Language | Unknown | + + + | Marital Status | Single | + + + | Lutheran Affiliation | 1041 | + + + | Race | Unknown | + + + | Ethnic Group | Unknown | + + + Author + + + | Author | [facility] | | | and [place] | + + + | Organization | [facility] | | | [...] Team Providers + +------+ + | Care Pivot Maker Name | Role | Phone | + +------+ + | Afua Marinelli PA-C | PCP | | + +------+ + Encounter Details +--------+ + + + + | Date | Type | Department | Care Team | Description | +--------+ + + + + | 01/08/ | Orders Only | [facility] | Francesco Xavier MD | | | 2019 | | HEMATOLOGY AND | [address] | | | | | ONCOLOGY [address] | [place] | | | [address] | [address] | | | | | [place] | | | | | | [address] | | | | | | [phone] | | | +--------+ + + + [...]
--- OUTSIDE RECORDS SUMMARY | ~2019-10-25 | XMS | Encounter Summary ---
Demographics + + + | Address | [address] | | | [place] [address] | + + + | Home Phone | | + + + | Preferred Language | Unknown | + + + | Marital Status | Single | + + + | Jain Affiliation | 1041 | + + + [...] Team Providers + +------+ + | Care Electrical Helper Name | Role | Phone | + +------+ + PCP | Unavailable | + +------+ + Encounter Details +--------+ + + + + | Date | Type | Department | Care Team | Description | +--------+ + + + + | 03/20/ | Hospital | [facility] MEDICAL | Conversion | Spell of loss of | | 2018 | Encounter | CENTER | Transaction, | consciousness | | | | NEURODIAGNOSTICS | Provider Unknown | | | | | [address] | | | | | | [place], [place] | (Fax) | | | | | [address] | | | | | | [phone] | | | +--------+ + + + [...] + + documented as of this encounter Medications at Time of Discharge + + + +---------+ + + | Medication | Sig | Dispensed | Refills | Start | End Date | | | | | | Date | | + + + +---------+ + + | Cholecalciferol | Take 1 tablet by | | 0 | 12/27/19 | | | (VITAMIN D PO) | mouth daily. | | | 18 | 9 | + + + +---------+ + + | ibuprofen | Take 600 mg by mouth | | 0 | 12/23/19 | | | (ADVIL,MOTRIN) 600 | as needed. | | | 18 | 9 | | MG tablet | | | | | | + + + +---------+ + + documented as of this encounter Plan of Treatment Not on filedocumented as of this encounter Visit Diagnoses + + | Diagnosis | + + | Spell of loss of consciousness Other alteration of consciousness | + + documented in this encounter
--- OUTSIDE RECORDS SUMMARY | ~2019-10-25 | XMS | Encounter Summary ---
Demographics + + + | Address | [address] | | | [place] [address] | + + + | Home Phone | | + + + | Preferred Language | Unknown | + + + | Marital Status | Single | + + + | Yazidi Affiliation | 1041 | + + + | Race | Unknown | + + + | Ethnic Group | Unknown | + + + Author + + + | Author | [facility] | | | and [place] | + + + | Organization | [facility] | | | [...] Team Providers + +------+ + | Care Learning Disabilities Teacher Name | Role | Phone | + +------+ + PCP | Unavailable | + +------+ + Encounter Details +--------+ + + + + | Date | Type | Department | Care Team | Description | +--------+ + + + + | 12/28/ | Hospital | [facility] | | | | 2000 | Encounter | MED CTR XRAY [address] | | | | | | [address] | | | | | | [place] [address] | | | | | | [phone] | | | +--------+ + + + [...]
--- OUTSIDE RECORDS SUMMARY | ~2019-10-25 | XMS | Encounter Summary ---
Demographics + + + | Address | [address] | | | [place] [address] | + + + | Home Phone | | + + + | Preferred Language | Unknown | + + + | Marital Status | Single | + + + | Taoism Affiliation | 1041 | + + + | Race | Unknown | + + + | Ethnic Group | Unknown | + + + Author + + + | Author | [facility] | | | and [place] | + + + | Organization | [facility] | | [...] Team Providers + +------+ + | Care Wrinkle Chaser Name | Role | Phone | + +------+ + PCP | Unavailable | + +------+ + Encounter Details +--------+ + + + + | Date | Type | Department | Care Team | Description | +--------+ + + + + | 03/20/ | Hospital | [facility] MEDICAL | Conversion | Spell of loss of | | 2018 | Encounter | CENTER | Transaction, | consciousness | | | | NEURODIAGNOSTICS | Provider Unknown | | | | | [address] | | | | | | [place], [place] | (Fax) | | | | | [address] | | | | | | [phone] | | | +--------+ + + + [...]
--- OUTSIDE RECORDS SUMMARY | ~2019-10-25 | XMS | Encounter Summary ---
Demographics + + + | Address | [address] | | | [place] [address] | + + + | Home Phone | | + + + | Preferred Language | Unknown | + + + | Marital Status | Single | + + + | Shinto Affiliation | 1041 | + + + | Race | Unknown | + + + | Ethnic Group | Unknown | + + + Author + + + | Author | [facility] | | | and [place] | + + + | Organization | [facility] | | | [...] Team Providers + +------+ + | Care Behavioral Sciences Instructor Name | Role | Phone | + [...] | | | | [place] | [phone] | | | | | [address] | | | | | | [phone] | | | +--------+ + + + [...]
[2019-10-25] MEDS ORDERED: MACROBID 100 M100 MG PO (08:52)
== END 2019-10-25 09:47 | disposition home or self-care (01) ==
LOC: ED 07:37
DX: O20.0 Threatened abortion (principal); O99.89 Other specified diseases and conditions complicating pregnancy, childbirth and the puerperium; N13.9 Obstructive and reflux uropathy, unspecified; Z87.891 Personal history of nicotine dependence; Z88.0 Allergy status to penicillin; Z88.8 Allergy status to other drugs, medicaments and biological substances; Z79.899 Other long term (current) drug therapy; Z3A.15 15 weeks gestation of pregnancy
CPT/HCPCS: 76815; 80048; 81001; 84702; 85025; 99284-25

== ENCOUNTER 2020-04-09 16:22 | Inpatient (IN) | payer OTHER ==
[~2020-04-09 16:22] MED LIST changes: +MACROBID 100 M100 MG PO
--- NOTE | 2020-04-09 17:33 | NUR ---
RT COLLECTED COVID 19 SWAB WITH NO COMPLICATIONS. RT USED THE CEPHEID RAPID TEST THROUGH [facility] PER DR REQUEST AT THIS TIME.
--- NOTE | 2020-04-09 20:07 | NUR ---
04/09/202006 Dorie,Radha 1942 PT ARRIVED TO ROOM 101, VSS. PT RESTING IN BED AND DENIES PAIN AND NAUSEA. IV INFUSING LR WITH 20 PIT AND SITE WNL, LEFT HAND/WRIST. 1950 BABY TO CHEST WITH FBC RN AT BEDSIDE. PT MOTHER IN ROOM. HOB INCREASED SLIGHTLY.
--- NOTE | 2020-04-10 08:03 | PR ---
[facility] [address] [facility] [address] [place], [place] [address] Signed PP Progress Notes Datetime Report Generated by CPN: 04/10/2020 08:03 SUBJECTIVE: [id number] Pain: Within Normal Limits Nausea/Vomiting: Denies Flatus: Yes Bowel Movement: No Vital Signs: [id number] Vital Signs: Reviewed; Within Normal Limits EXAM: Ongoing Cardiovascular: Normal Respiratory: Normal Abdomen/Uterus: Normal Lochia: Normal Breasts: Normal Extremities: Abnormal Incision: Normal Progress: Normal Exam Comments: fundus firm below umbilicus no strikethrough on dressing 2+ bilateral lower extremity edema, SCDs on and running IMPRESSION/PLAN/PROCEDURES: [id number] Impression: Normal Progression Plan: Continue Present Management Progress Notes: POD#1 s/p PLTCS for PROM and active genital HSV progressing well postop lochia moderate, ambulating, tolerating clear liquid diet with try regular diet today without difficulty Signing Physician: Rosalba Garner DO Copies: ~ *Electronically Signed* 04/10/20 0803 ROSALBA GARNER DO PATIENT NAME: AARTIKAT PATTERSON PROGRESS NOTE DATE OF : 90 PHYSICIAN: ROSALBA GARNER DO RPT #: [id number] REPORT IS CONFIDENTIAL AND NOT TO BE RELEASED WITHOUT AUTHORIZATION
--- NOTE | 2020-04-10 18:55 | OR ---
[facility] [address] [place] [address] [place], [place] [address] Signed DATE OF OPERATION: 04/09/2020 SURGEON: Rosalba Garner DO MEDIA RELATIONS MANAGER: Dr. Chakraborty. PREOPERATIVE DIAGNOSES: 1. Prelabor rupture of membranes. 2. Active genital herpes simplex virus. 3. Gestational diabetes mellitus, diet controlled. 4. Group B strep carrier. 5. 39-weeks gestation. POSTOPERATIVE DIAGNOSES: 1. Status post primary low transverse caesarean section. 2. Prelabor rupture of membranes. 3. Active genital herpes simplex virus. 4. Gestational diabetes mellitus, diet controlled. 5. Group B strep carrier. 6. 39-weeks gestation. 7. Delivery of term viable female . OPERATIVE PROCEDURE: Primary low transverse section. ESTIMATED BLOOD LOSS: 600 mL. LINES: None. DRAINS: Shearer catheter. FINDINGS: Viable term female weighing 8 pounds 8.5 ounces. Apgars 8 and 9 and 1 and 5 minutes, respectively. Normal-appearing uterus, bilateral tubes, and ovaries. Electronically Signed By: ROSALBA GARNER DO 04/10/20 1855 PATIENT NAME: KAT BROUSSARD OPERATIVE REPORT DATE OF : [birth year] REPORT #: [id number] PHYSICIAN: ROSALBA GARNER DO PCP: TAYA MARK REPORT IS CONFIDENTIAL AND NOT TO BE RELEASED WITHOUT AUTHORIZATION [address] [place], [place] [address] Signed INDICATIONS: Prelabor rupture of membranes at 1600 on 04/09/2020. Upon arrival to [facility], the patient was found to be grossly ruptured. She had a planned scheduled primary on 04/13/2020, due to active genital HSV. Risks, benefits and alternatives to delivery were reviewed and the patient elected to proceed. DESCRIPTION OF PROCEDURE: The patient was taken to the operating room, where spinal anesthesia was placed without difficulty. She was given 3 g of Ancef preoperatively and positioned in supine position with a leftward tilt. Shearer was placed. SCDs were placed bilaterally and abdomen was prepped and draped in normal sterile fashion. Adequate anesthesia was confirmed. Pfannenstiel incision was made with a scalpel and carried through to the fascia with Bovie cautery. The fascial incision was extended laterally with Mccall scissors. Inferior margin of the fascia was grasped and elevated with Oscar clamps and the underlying rectus muscle was dissected off bluntly and sharply using Mccall scissors. In a similar fashion, the superior margin of the fascia was grasped with Kochers, elevated and underlying rectus muscle was dissected off bluntly and sharply with Mccall scissors. Peritoneum was entered bluntly and incision was extended superiorly and inferiorly with Metzenbaum's with good visualization of bladder. Noman retractor was placed without difficulty. Uterine incision was made just above the vesicouterine reflection and extended laterally with superior and inferior retraction. 's head was gently grasped and elevated to the level of the incision and delivered easily without complication. Baby gave an immediate cry upon delivery. Cord was doubly clamped and cut and baby was handed to waiting nurse and precision lens generator for further care. Segment of cord was obtained for culture. Cord blood was collected by type and [place]. Placenta was manually expressed and noted to be intact and meconium stained with a centrally inserted 3-vessel cord. Uterus was cleared of membranes, clots, and debris. Poor uterine tone was noted initially and she was given 1g TXA IV. T-clamps were placed at each apex and left apex was secured with a single suture of 0 Monocryl. Double layer closure was then completed with 0 Monocryl: first layer in a running locked fashion and second layer in an imbricating manner. Following double layer closure uterine tone was noted to be markedly improved. Hysterotomy was examined and noted to be hemostatic. The uterus was inspected with findings as noted above and the gutters were cleared of clots. Noman retractor was removed and abdomen was suction/irrigated with warm sterile saline. The peritoneum was then grasped bilaterally and above the bladder flap with Mariposa clamps and a sheet of Acell was placed over the hemostatic hysterotomy. Peritoneum was then closed in a running fashion with 3-0 Vicryl and rectus muscle was reapproximated with 0-Vicryl in a simple interrupted Electronically Signed By: ROSALBA GARNER DO 04/10/20 1855 PATIENT NAME: KAT BROUSSARD OPERATIVE REPORT DATE OF : 89 REPORT #: [id number] PHYSICIAN: ROSALBA GARNER DO PCP: TAYA MARK REPORT IS CONFIDENTIAL AND NOT TO BE RELEASED WITHOUT AUTHORIZATION [facility] [address] [place] [id number] Signed fashion. Perforating vessels through the rectus were cauterized with Bovie cautery. A small blood clot at the inferior attachment of the rectus muscle was noted. No active bleeding could be identified. Lissette powder was applied across the area and no further bleeding was noted. Acell powder was applied diffusely across the rectus muscle. The fascia was closed in a running fashion with 0 Vicryl with 2 pieces of suture working laterally to medially from each apex meeting in the middle. Subcutaneous perforating vessels were cauterized with Bovie cautery. Remaining Lissette powder was applied to the subcutaneous layer. Subcutaneous layer was suction irrigated and then reapproximated with 2-0 Vicryl in a simple interrupted fashion. Skin was then closed with skin clips. Lap and sponge counts were correct. The patient tolerated the procedure very well. Mother and baby were taken to their LDRP room and allowed to recovery together skin to skin. SPECIMENS: Segment of umbilical cord, cord blood, placenta. Rosalba Garner DO EMZ/MODL /[id number] Copies: ~ Electronically Signed By: ROSALBA GARNER DO 04/10/20 1855 PATIENT NAME: KAT BROUSSARD OPERATIVE REPORT DATE OF : [birth year] REPORT #: [id number] PHYSICIAN: ROSALBA GARNER DO PCP: TAYA MARK REPORT IS CONFIDENTIAL AND NOT TO BE RELEASED WITHOUT AUTHORIZATION
== END 2020-04-12 12:40 | disposition home or self-care (01) | DRG 787 ==
LOC: FBCO 16:22 → FBC 17:00
PROVIDERS: ADMIT Obstetrics & Gynecology; ATTEND Obstetrics & Gynecology
PROC: 10D00Z1 Extraction of Products of Conception, Low, Open Approach (ICD-10-PCS; principal; 2020-04-09 18:53)
DX: O98.32 Other infections with a predominantly sexual mode of transmission complicating childbirth (principal); O99.324 Drug use complicating childbirth; A60.00 Herpesviral infection of urogenital system, unspecified; Z3A.39 39 weeks gestation of pregnancy; Z37.0 Single live birth; O42.92 Full-term premature rupture of membranes, unspecified as to length of time between rupture and onset of labor; O24.420 Gestational diabetes mellitus in childbirth, diet controlled; O99.824 Streptococcus B carrier state complicating childbirth; O77.0 Labor and delivery complicated by meconium in amniotic fluid; O99.62 Diseases of the digestive system complicating childbirth; K21.9 Gastro-esophageal reflux disease without esophagitis; F12.11 Cannabis abuse, in remission; F11.11 Opioid abuse, in remission; Z86.73 Personal history of transient ischemic attack (TIA), and cerebral infarction without residual deficits; Z88.0 Allergy status to penicillin; Z88.8 Allergy status to other drugs, medicaments and biological substances; Z87.891 Personal history of nicotine dependence; Z86.19 Personal history of other infectious and parasitic diseases; Z79.899 Other long term (current) drug therapy; Z79.82 Long term (current) use of aspirin
CPT/HCPCS: 36415; 85027; 86850; 86900; 86901; C9803; J0690; J1650; J1885; J2001; J2274; J2405; J2590; U0003

== ENCOUNTER 2022-04-21 18:11 | Emergency (ER) | payer OTHER ==
[~2022-04-21] VITALS: Ht 180.3 cm; Wt 88.5 kg
--- NOTE | 2022-04-21 19:25 | EKG ---
[facility] [address] [facility] [place] [address] Signed Normal sinus rhythm with sinus arrhythmia Normal ECG No previous ECGs available Confirmed by PACO FUNK MD ([id number]) on 04/21/2022 7:25:27 PM Electronically Signed By: PACO FUNK MD 04/21/221924 PATIENT NAME: KAT BROUSSARD Electrocardiogram DATE OF : [birth year] PHYSICIAN: PACO FUNK MD REPORT #: [id number] REPORT IS CONFIDENTIAL AND NOT TO BE RELEASED WITHOUT AUTHORIZATION
== END 2022-04-21 19:38 | disposition home or self-care (01) ==
LOC: ED 18:11
DX: R07.89 Other chest pain (principal); M25.512 Pain in left shoulder; G43.909 Migraine, unspecified, not intractable, without status migrainosus; Z86.73 Personal history of transient ischemic attack (TIA), and cerebral infarction without residual deficits; Z87.891 Personal history of nicotine dependence; Z88.0 Allergy status to penicillin; Z88.8 Allergy status to other drugs, medicaments and biological substances; Z79.899 Other long term (current) drug therapy
CPT/HCPCS: 36415; 71045; 80053; 83735; 84484; 85025; 93005; 93010; 99285-25

== ENCOUNTER 2023-12-01 18:04 | Emergency (ER) | payer OTHER ==
[~2023-12-01] VITALS: Ht 180.3 cm; Wt 89.4 kg
[2023-12-01] MEDS ORDERED: PRENATAL VITAM1 EAC5 PO (19:51)
[2023-12-01 21:51] LABS: BASOPHILS 0.3 % (0-2); EOSINOPHILS 0.5 % (0-6); HEMATOCRIT 42.4 % (35.0-50.0); LYMPHOCYTES 12.9 % (24-44); MCH 28.8 (27-36); MCHC 32.9 g/dl (30-36); MCV 87.6 fl (81-99); MONOCYTES 6.3 % (0-12); PLATELET COUNT 420 K/uL (140-440); RBC 4.84 M/ul (4.3-5.7); RDW 13.7 (10.5-15.0)
[2023-12-01] MEDS ORDERED: MAGNESIUM HYDROXIDE/AL HYDROX 30 ML CUP PO ONE (22:00)
[2023-12-01 22:14] LABS: ABO B; RH POSITIVE
[2023-12-01 22:27] LABS: ANION GAP 11.6 (7-21); BUN/CREATININE RATIO 13.55 (6.0-28.6); CALCIUM 9.4 mg/dL (8.5-10.1); CREATININE, SERUM 0.59 mg/dL (0.55-1.02); POTASSIUM 3.6 mmol/L (3.5-5.1)
[2023-12-01 22:57] LABS: BILIRUBIN, URINE NEGATIVE (negative); BLOOD/HGB, URINE TRACE-I (Negative); KETONE, URINE SMALL (Negative); LEUK ESTERASE, URINE NEGATIVE (negative); NITRITE, URINE NEGATIVE (negative)
[2023-12-01 23:07] LABS: BACTERIA, URINE RARE /hpf (negative); CASTS, URINE NONE SEEN \\lpf; COLLECTION TYPE, URINE CLEAN CATCH; CRYSTALS, URINE NONE SEEN (0-1+); EPITHELIAL CELLS, URINE SQUAMOUS 1+ /lpf (0-1+); REFLEX CULTURE, URINE No (No)
[2023-12-01] MEDS ORDERED: ONDANSETRON 4 MG TAB ODT SL ONE (23:45)
[2023-12-02 01:02] VITALS: BP 119/69
== END 2023-12-02 01:04 | disposition home or self-care (01) ==
LOC: ED 18:04
PROVIDERS: Emergency Medicine
DX: O20.0 Threatened abortion (principal); Z3A.01 Less than 8 weeks gestation of pregnancy; Z79.899 Other long term (current) drug therapy; Z87.891 Personal history of nicotine dependence; Z88.0 Allergy status to penicillin; Z88.8 Allergy status to other drugs, medicaments and biological substances
CPT/HCPCS: 36415; 76802; 76817; 80048; 81001; 84702; 85025; 86900; 86901; A9270

== ENCOUNTER 2024-07-04 04:44 | Inpatient (IN) | payer OTHER ==
[~2024-07-04] VITALS: Ht 177.8 cm; Wt 114.3 kg
[~2024-07-04 04:44] MED LIST changes: +PRENATAL VITAM1 EAC5 PO
[2024-07-04] MEDS ORDERED: CYCLOBENZAPRINE HCL 10 MG TAB PO ONE (06:00)
[2024-07-04] MEDS ORDERED: LACTATED RINGER'S 1,000 ML IV ONE (08:45)
[2024-07-04] MEDS ORDERED: NIFEdipine 10 MG CAP PO ONE (11:30)
[2024-07-04] MEDS ORDERED: NIFEdipine XL 30 MG TAB PO ONE (12:00)
[2024-07-04] MEDS ORDERED: LACTATED RINGER'S 1,000 ML IV PRN (13:45)
[2024-07-04] MEDS ORDERED: SOD+POT BICARB/CITRIC ACID 2 EA TABLET.EFF PO ONE (13:45)
[2024-07-04 13:58] LABS: HEMATOCRIT 38.4 % (35.0-50.0); HEMOGLOBIN 12.8 g/dL (12.0-18.0); MCH 27.4 (27-36); MCHC 33.3 g/dl (30-36); MCV 82.2 fl (81-99); RBC 4.67 M/ul (4.3-5.7); RDW 14.8 (10.5-15.0)
[2024-07-04] MEDS ORDERED: LACTATED RINGER'S 1,000 ML IV SCH ×2 (14:00→16:50)
[2024-07-04 14:11] LABS: AMPHETAMINES, URINE NEGATIVE (NEGATIVE); BARBITURATES, URINE NEGATIVE (NEGATIVE); BENZODIAZEPINE, URINE NEGATIVE (NEGATIVE); BUPRENORPHINE, URINE NEGATIVE (NEGATIVE); CANNABINOID, URINE NEGATIVE (NEGATIVE); COCAINE, URINE NEGATIVE (NEGATIVE); ECSTASY, URINE NEGATIVE (NEGATIVE); FENTANYL, URINE NEGATIVE (NEGATIVE); METHADONE, URINE NEGATIVE (NEGATIVE); OPIATES, URINE NEGATIVE (NEGATIVE); OXYCODONE, URINE NEGATIVE (NEGATIVE); PHENCYCLIDINE, URINE NEGATIVE (NEGATIVE)
[2024-07-04 14:26] LABS: ABO B; ANTIBODY SCREEN NEGATIVE; RH POSITIVE
[2024-07-04 14:35] VITALS: BP 132/77
[2024-07-04] MEDS ORDERED: MORPHINE SULFATE 1 MG/ML VIAL ONE (14:39)
[2024-07-04] MEDS ORDERED: BUPIVACAINE 0.75% IN DEXTROSE 2 ML AMP ONE (14:39)
[2024-07-04] MEDS ORDERED: ePHEDrine sulfate 50 MG/ML AMP ONE (14:40)
[2024-07-04] MEDS ORDERED: fentaNYL citrate 100 MCG/2 ML VIAL ONE (14:40)
[2024-07-04] MEDS ORDERED: LIDOCAINE HCL 2% 5 ML SDV ONE (14:40)
[2024-07-04] MEDS ORDERED: PHENYLEPHRINE HCL 10 MG/ML VIAL ONE (14:40)
[2024-07-04] MEDS ORDERED: ondansetron HCL 4 MG/2 ML VIAL ONE (14:40)
[2024-07-04] MEDS ORDERED: OXYTOCIN 10 UNITS/ML VIAL ONE (14:40)
[2024-07-04] MEDS ORDERED: SODIUM CHLORIDE 0.9% 40 ML IV ONE ×2 (14:42→15:59)
[2024-07-04] MEDS ORDERED: ondansetron HCL 4 MG/2 ML VIAL IV ONE (14:45)
[2024-07-04] MEDS ORDERED: KETOROLAC TROMETHAMINE 30 MG/ML VIAL ONE (14:48)
[2024-07-04] MEDS ORDERED: DEXAMETHASONE SOD PHOS 4 MG/ML VIAL ONE ×2 (14:48→15:59)
[2024-07-04] MEDS ORDERED: CEFAZOLIN SODIUM 3 GM/30 ML SYR IV ONE (15:00)
[2024-07-04 15:23] VITALS: BP 136/71
[2024-07-04] MEDS ORDERED: Ropivacaine HCl 0.5% 30 ML VIAL ONE (15:59)
[2024-07-04] MEDS ORDERED: dexmedeTOMIDine HCl 200 MCG/2 ML VIAL ONE (15:59)
[2024-07-04] MEDS ORDERED: SODIUM CHLORIDE 0.9% 20 ML IV ONE (16:00)
[2024-07-04] MEDS ORDERED: bisacodyL 10 MG SUPP PR PRN (16:45)
[2024-07-04] MEDS ORDERED: ondansetron HCL 4 MG/2 ML VIAL IV PRN ×2 (16:45→18:15)
[2024-07-04] MEDS ORDERED: PROCHLORPERAZINE EDISYLATE 10 MG/2 ML VIAL IV PRN (16:45)
[2024-07-04] MEDS ORDERED: OXYCODONE HCL 5 MG TAB PO PRN (16:45)
[2024-07-04] MEDS ORDERED: OXYCODONE/APAP 5/325 TAB PO PRN (16:45)
[2024-07-04] MEDS ORDERED: HYDROCODONE/ACETA 5/325 TAB PO PRN (16:45)
[2024-07-04] MEDS ORDERED: PROMETHAZINE HCL 25 MG SUPP PR PRN (16:45)
[2024-07-04] MEDS ORDERED: METOCLOPRAMIDE HCL 10 MG/2 ML SDV IV PRN (16:45)
[2024-07-04] MEDS ORDERED: OXYTOCIN/0.9 % SODIUM CHLORIDE 500 ML IV SCH (16:45)
[2024-07-04] MEDS ORDERED: PROMETHAZINE HCL 25 MG TAB PO PRN (16:45)
[2024-07-04 17:11] VITALS: BP 118/68
[2024-07-04] MEDS ORDERED: ASPIRIN 81 MG CHEW PO SCH (18:00)
[2024-07-04] MEDS ORDERED: diphenhydrAMINE HCL 50 MG/ML VIAL IV PRN (18:15)
[2024-07-04] MEDS ORDERED: NALOXONE HCL 0.4 MG SYR IV PRN (18:15)
[2024-07-04] MEDS ORDERED: HYDROmorphone HCL 1 MG/ML SYR IV PRN (18:15)
[2024-07-04] MEDS ORDERED: MORPHINE SULFATE 4 MG/ML VIAL IV PRN (18:15)
[2024-07-04] MEDS ORDERED: SENNOSIDES/DOCUSATE 1 EA TAB PO SCH (21:00)
[2024-07-05] MEDS ORDERED: IBUPROFEN 600 MG TAB PO SCH (02:00)
[2024-07-05] MEDS ORDERED: LACTATED RINGER'S 1,000 ML IV SCH (05:00)
[2024-07-05] MEDS ORDERED: ACETAMINOPHEN 325 MG TAB PO PRN (12:00)
--- NOTE | 2024-07-05 15:42 | OR ---
[facility] [address] [place], [place] [address] Signed DATE OF OPERATION: 07/04/2024 SURGEON: Hai Anand MD PREOPERATIVE DIAGNOSES: 1. Intrauterine at 38 and 2/7th weeks. 2. Prior section declines vaginal after section. 3. Labor. POSTOPERATIVE DIAGNOSES: 1. Intrauterine at 38 and 2/7th weeks. 2. Prior section declines vaginal after section. 3. Labor. PROCEDURE: Repeat low transverse section. FINDINGS: Light-meconium stained fluid, vigorous female . Apgars of 9 and 9, weight of 9 pounds 6 ounces. Normal uterus, ovaries and tubes. ANESTHESIA: Spinal. TRIMMER OPERATOR THREE KNIFE: None. ESTIMATED BLOOD LOSS: 500 mL. IV FLUIDS: 900 mL of crystalloid. URINE OUTPUT: 50 mL of clear urine. DRAINS: Shearer to gravity. SPECIMENS: Electronically Signed By: HAI ANAND MD 07/05/24 1542 PATIENT NAME: KAT BROUSSARD OPERATIVE REPORT DATE OF : [birth year] REPORT #: [id number] PHYSICIAN: HAI ANAND MD PCP: [facility] REPORT IS CONFIDENTIAL AND NOT TO BE RELEASED WITHOUT AUTHORIZATION [facility] [address] [place] [id number] Signed None. COMPLICATIONS: None apparent. COUNTS: Correct x2. TECHNIQUE IN DETAIL: With informed consent, the patient was taken to the operating room. Her lower extremities were placed in the SCD pneumatic compression devices for deep venous thrombosis prophylaxis. She was given 3 g of Ancef intravenously. Spinal anesthetic was placed and she was prepped and draped in sterile fashion. A time-out was performed per protocol. Under adequate spinal anesthetic, an approximately 8-inch Pfannenstiel skin incision was made at the site of her old incision. Sharp dissection was carried down to the layer of the rectus fascia and this fascial princess was enlarged bilaterally using a combination of sharp and blunt dissection. The rectus muscles were taken down from the fascia both superiorly and inferiorly using a combination of sharp and blunt dissection. The rectus muscles were in the midline at the most superior aspect using hemostats. The peritoneum was entered bluntly. The rectus muscles were in the midline in an inferior direction using a combination of electrocautery device and blunt dissection. The peritoneal opening was enlarged with electrocautery and blunt dissection and a bladder blade was placed. A scalpel was used to make a low transverse uterine incision. The uterine incision was enlarged with blunt dissection and then inferior to superior direction. The bulging bag was ruptured with an L-hook. The surgeon's hand was then placed into the lower uterine segment. head was elevated and delivered with fundal pressure in a flexed position, presenting position was occiput posterior. With the baby delivered, the cord was clamped x2 and cut and the baby was given to the nurse who was part of the transition team for the baby. Placental blood was taken per protocol. The placenta was delivered intact with a three-vessel cord using fundal massage and gentle traction. The uterus was externalized and the uterine cavity was curetted with laparotomy sponges removing all clots and products of conception. Good uterine tone was achieved with fundal massage and intravenous oxytocin. The first layer of the uterine incision was closed with 0 Monocryl in a running locked fashion. The posterior cul-de-sac was inspected and found to be clot-free. The adnexa were inspected with the above mentioned findings. The uterus was returned to the pelvis. The left and the right pericolic gutters were inspected and cleared of all clot. The uterine Electronically Signed By: HAI ANAND MD 07/05/24 1542 PATIENT NAME: KAT BROUSSARD OPERATIVE REPORT DATE OF : [birth year] REPORT #: [id number] PHYSICIAN: HAI ANAND MD PCP: [facility] REPORT IS CONFIDENTIAL AND NOT TO BE RELEASED WITHOUT AUTHORIZATION [facility] [address] [place], [place] [address] Signed incision was then exposed and a second imbricating layer of 0 Monocryl was placed in a running fashion. The uterine incision was inspected and found to be hemostatic. The rectus muscles and the peritoneum were reapproximated using 0 chromic in a running fashion. The rectus muscle bellies were inspected and rendered hemostatic with the use of the electrocautery device. The rectus fascia was then reapproximated using 0 Vicryl in a running fashion. The superficial incision was irrigated and rendered hemostatic with electrocautery. The subcutaneous tissue was reapproximated using 0 chromic in a running fashion and the skin was reapproximated using the Monoderm Quill suture. Steri-Strips and Dermabond were placed and the uterus was expressed of all clots. DISPOSITION: The patient and baby were taken into the recovery room in stable condition. MD ROSALINDA Do/MODL /[id number] Copies: ~ Electronically Signed By: HAI ANAND MD 07/05/24 1542 PATIENT NAME: KAT BROUSSARD OPERATIVE REPORT DATE OF : [birth year] REPORT #: [id number] PHYSICIAN: HAI ANAND MD PCP: [facility] REPORT IS CONFIDENTIAL AND NOT TO BE RELEASED WITHOUT AUTHORIZATION
[2024-07-05] MEDS ORDERED: ACETAMINOPHEN 500 MG TAB PO PRN (15:45)
--- NOTE | 2024-07-07 08:14 | PR ---
[facility] [address] [place], [place] [address] Signed PP Progress Notes Datetime Report Generated by CPN: 07/07/2024 08:14 SUBJECTIVE: [id number] Pain: Within Normal Limits Pain Comments: feeling good Nausea/Vomiting: Denies Flatus: Yes Bowel Movement: Yes Vital Signs: [id number] Vital Signs: Reviewed; Within Normal Limits EXAM: Ongoing Cardiovascular: Normal Respiratory: Normal Abdomen/Uterus: Normal Lochia: Normal Vulva/Perineum: Not Done Breasts: Not Done CVA Tenderness: Normal Extremities: Normal Incision: Normal Progress: Normal Exam Comments: Fundus firm U-2 nontender. Incision well healing IMPRESSION/PLAN/PROCEDURES: [id number] Impression: Normal Progression Plan: Discharge Procedures: None Progress Notes: Pt seen and examined. Doing well. Ambulating, voiding, and tolerating full diet. Pain and lochia minimal. well and has maintained normal blood glucose per pt. Pt desires to be discharged home today. Reviewed d/c plans, medication, and instructions. Planning pp care at [facility]. Undecided on pp contraception. All questions answered. Signing Physician: Aimee Chakraborty DO Copies: ~ *Electronically Signed* 07/07/24 0814 AIMEE CHAKRABORTY (DALE) DO PATIENT NAME: KAT BROUSASRD PROGRESS NOTE DATE OF : [birth year] PHYSICIAN: AIMEE CHAKRABORTY (JD) DO RPT #: [id number] REPORT IS CONFIDENTIAL AND NOT TO BE RELEASED WITHOUT AUTHORIZATION
== END 2024-07-07 10:55 | disposition home or self-care (01) | DRG 788 ==
LOC: FBCO 04:44 → FBC 14:38
PROVIDERS: ADMIT Obstetrics & Gynecology; ATTEND Obstetrics & Gynecology
PROC: 10D00Z1 Extraction of Products of Conception, Low, Open Approach (ICD-10-PCS; principal; 2024-07-04 14:57)
DX: O34.211 Maternal care for low transverse scar from previous cesarean delivery (principal); Z37.0 Single live birth; Z3A.38 38 weeks gestation of pregnancy; O77.0 Labor and delivery complicated by meconium in amniotic fluid
CPT/HCPCS: 01961; 36415; 59025; 76942; 80307; 85027; 86850; 86900; 86901; A9270; G0463; J0690; J1100; J1885; J2003; J2274; J2371; J2405; J2590; J2795; J3010; J7121

== ENCOUNTER 2024-11-05 23:01 | Observation (INO) | payer OTHER ==
[~2024-11-05] VITALS: Ht 182.9 cm; Wt 89.9 kg
[2024-11-05] MEDS ORDERED: CLONAZEPAM0.5 MG PO (23:18)
[2024-11-05] MEDS ORDERED: HYDROXYZINE PAM25 MG PO (23:18)
[2024-11-05 23:34] LABS: BASOPHILS 0.5 % (0.1-1.2); EOSINOPHILS 0.5 % (0.7-5.8); HEMATOCRIT 41.1 % (34.1-44.9); HEMOGLOBIN 13.1 g/dL (11.2-15.7); LYMPHOCYTES 26.4 % (19.3-51.7); MCH 25.9 PG (25.6-32.2); MCHC 31.9 g/dL (32.2-35.5); MCV 81.2 fL (79.4-94.8); MONOCYTES 6.4 % (4.7-12.5); NEUTROPHILS 65.9 % (34.0-71.1); PLATELET COUNT 454 K/uL (182-369); RBC 5.06 M/uL (3.93-5.22)
[2024-11-05] MEDS ORDERED: LACTATED RINGER'S 1,000 ML IV ONE (23:45)
[2024-11-06] VITALS (8 sets, daily range): BP systolic 102–124; BP diastolic 70–85
[2024-11-06 00:01] LABS: ACETAMINOPHEN 0 ug/mL (10-30); ALBUMIN 3.6 g/dL (3.4-5.0); ALBUMIN/GLOBULIN RATIO 0.97 (1.1-2.4); ALCOHOL, MEDICAL 97 ng/dL (<3); ALKALINE PHOSPHATASE 133 U/L (46-116); ALT (SGPT) 33 U/L (14-59); ANION GAP 12.3 (7-21); AST (SGOT) 21 U/L (15-37); BILIRUBIN, TOTAL 0.2 mg/dL (0.2-1.0); CALCIUM 8.6 mg/dL (8.5-10.1); CARBON DIOXIDE 30 mmol/L (21-32); CHLORIDE 107 mmol/L (98-107); GLOMERULAR FILTRATION RATE,EST 126 mL/min (>60); POTASSIUM 3.3 mmol/L (3.5-5.1); PROTEIN, TOTAL 7.3 g/dL (6.4-8.2); SALICYLATE 2.4 mg/dL (2.8-20.0); UREA NITROGEN 3 mg/dL (7-18)
[2024-11-06 00:07] LABS: BILIRUBIN, URINE NEGATIVE (negative); BLOOD/HGB, URINE NEGATIVE (Negative); KETONE, URINE NEGATIVE (Negative); LEUK ESTERASE, URINE NEGATIVE (negative); NITRITE, URINE NEGATIVE (negative); PH, URINE 7.5 (5-7)
[2024-11-06 00:19] LABS: AMPHETAMINES, URINE NEGATIVE (NEGATIVE); BARBITURATES, URINE NEGATIVE (NEGATIVE); BENZODIAZEPINE, URINE NEGATIVE (NEGATIVE); BUPRENORPHINE, URINE NEGATIVE (NEGATIVE); CANNABINOID, URINE POSITIVE (NEGATIVE); COCAINE, URINE NEGATIVE (NEGATIVE); ECSTASY, URINE NEGATIVE (NEGATIVE); FENTANYL, URINE NEGATIVE (NEGATIVE); METHADONE, URINE NEGATIVE (NEGATIVE); OPIATES, URINE NEGATIVE (NEGATIVE); OXYCODONE, URINE NEGATIVE (NEGATIVE); PHENCYCLIDINE, URINE NEGATIVE (NEGATIVE)
[2024-11-06] MEDS ORDERED: ACETAMINOPHEN 325 MG TAB PO PRN (01:30)
--- NOTE | 2024-11-06 02:50 | NUR ---
PATIENT ARRIVED TO ROOM 127 VIA STRETCHER. PATIENT TRANSFERRED FROM STRETCHER TO BED VIA SLIDE SHEET. HANDOFF REPORT RECEIVED FROM COCO ALCALA. PATIENT OBTUNDED, OPENS EYES BRIEFLY TO VERBAL AND TACTILE STIMULATION. PATIENT UNABLE TO FOLLOW COMMANDS. PATIENT VITAL SIGNS STABLE. PATIENT REMAINS ON ROOM AIR, SP02 98%. PATIENT IN NSR. PATIENT IV SITE WNL, 1L NORMAL SALINE BOLUS INFUSING PER EMAR. PATIENT ON SUICIDAL PRECAUTIONS WITH 1:1 DIRECT OBSERVATION, SITTER AT BEDSIDE. NO NEEDS AT THIS TIME. CURTAIN AND DOOR REMAIN OPEN FOR PATIENT SAFETY.
--- NOTE | 2024-11-06 05:05 | NUR ---
patient resting in bed with eyes closed, respirations even and unlabored. no signs of distress. patient appears to be comfortable at this time. vital signs stable. 1:1 sitter remains at bedside. door and curtain remain open for patient safety.
--- NOTE | 2024-11-06 06:30 | NUR ---
patient resting in bed with eyes closed, RR 16. no distress noted. patient vital signs stable. 1:1 sitter remains at bedside. poison control called the unit and provided with update, no recommendations at this time.
--- NOTE | 2024-11-06 07:28 | EKG ---
[facility] [address] [facility] [place], [place] [address] Signed Normal sinus rhythm Normal ECG When compared with ECG of 21-APR-2022 18:20, No significant change was found Confirmed by Xiang Ahumdaa MD ([id number]) on 11/06/2024 7:27:48 AM Electronically Signed By: XIANG AHUMADA MD 11/06/24 0728 PATIENT NAME: KAT BROUSSARD Electrocardiogram DATE OF : [birth year] PHYSICIAN: XIANG AHUMADA MD REPORT #: [id number] REPORT IS CONFIDENTIAL AND NOT TO BE RELEASED WITHOUT AUTHORIZATION
[2024-11-06 07:52] LABS: BASOPHILS 0.7 % (0.1-1.2); EOSINOPHILS 1.8 % (0.7-5.8); HEMATOCRIT 39.2 % (34.1-44.9); HEMOGLOBIN 12.6 g/dL (11.2-15.7); LYMPHOCYTES 32.8 % (19.3-51.7); MCH 26.1 PG (25.6-32.2); MCHC 32.1 g/dL (32.2-35.5); MCV 81.2 fL (79.4-94.8); MONOCYTES 8.3 % (4.7-12.5); NEUTROPHILS 56.1 % (34.0-71.1); PLATELET COUNT 443 K/uL (182-369); RBC 4.83 M/uL (3.93-5.22)
--- NOTE | 2024-11-06 07:59 | NUR ---
IN PATIENT'S ROOM FOR AM ASSESSMENT. PT AWAKENS TO VOICE AND ANSWERING QUESTIONS. PATIENT IS ORIENTED X4 AND WHEN ASKED IF SHE IS STILL HAVING SUICIDAL THOUGHTS, SHE ANSWERS NO. ALSO DENIED ANY HOMICIAL IDEATION. PT ENDORSES FEELING HUNGRY AND IS BROUGHT IN HER SAFETY TRAY. 1:[address] REMAINS IN PLACE WITH MANAGER PACKAGING IN ROOM. PT GIVEN HER GLASSES PER REQUEST. QT IS 0.36 ON MONITOR THIS AM AND QTC IS 0.44. REPEAT EKG TO BE DONE THIS AM. PT IN A NORMAL SINUS RHYTHM 80-90s. WILL CONTINUE TO MONITOR.
[2024-11-06 08:01] LABS: ANION GAP 9.5 (7-21); BUN/CREATININE RATIO 6.94 (6.0-28.6); CALCIUM 8.2 mg/dL (8.5-10.1); CREATININE, SERUM 0.72 mg/dL (0.55-1.02); MAGNESIUM 1.7 mg/dL (1.8-2.4); POTASSIUM 3.5 mmol/L (3.5-5.1)
[2024-11-06] MEDS ORDERED: DEXTROSE 5% 1,000 ML IV SCH (08:15)
[2024-11-06] MEDS ORDERED: MAGNESIUM SULFATE 2 GM/50 ML BAG IV SCH (08:15)
--- NOTE | 2024-11-06 08:59 | NUR ---
PATIENT'S SISTER HAS ARRIVED TO ROOM TO TALK WITH HER. PT REMAINS A 1:1 CLOSE OBSERVATION. PATIENT ALSO HAS REC'D A PHONE CALL FROM HER AUNT AND PATIENT STATES, "YES, SHE HAS MY KIDS." [facility] CALLED AND UPDATED ON [facility] AROUND 1200 TODAY. RETAIL PHARMACY TECHNICIAN WILL BE UP TO SEE HER LATER TODAY.
--- NOTE | 2024-11-06 09:48 | NUR ---
PT NOT AVAILABLE FOR VISIT. PROVIDED PRAYER.
--- NOTE | 2024-11-06 10:03 | NUR ---
PT UP TO BR. PT ABLE TO VOID WELL. PT BACK TO BED. IVF RUNNING PER EMAR. SISTER NOW AT BEDSIDE. CONVERSATING W/ PT. PT TEARFUL AT THIS TIME. 1:1 OBSERVATION
[2024-11-06] MEDS ORDERED: POTASSIUM CHLORIDE 10 MEQ TABCR PO ONE (10:45)
--- NOTE | 2024-11-06 11:03 | NUR ---
SISTER AT PT BEDSIDE. IVF RUNNING. CALL LIGHT IN REACH
--- NOTE | 2024-11-06 11:08 | NUR ---
PATIENT CLEARED BY [facility] AND NO LONGER ON A 1:1 DIRECT MONITORING. [facility] WILL FOLLOW UP WITH PHONE CALLS FOR THE NEXT THREE DAYS. PT ALREADY ESTABLISHED W/ COUNSELOR AT [facility], AND HAS BEEN PRESCRIBED PROZAC BY PCP. POSION CONTROL CONTACTED, SPOKE WITH WHO REVIEWED REPEAT EKG, PT'S CASE IS NOW CLOSED. PT IS MEDICALLLY CLEARED PER HOSPITALIST.
[2024-11-06] MEDS ORDERED: FLUOXETINE HCL20 MG PO (11:27)
[2024-11-06] MEDS ORDERED: ASPIRIN81 MG PO (11:29)
[2024-11-06] MEDS ORDERED: PHARMACY RENAL DOSE ADJUSTMENT 1 DOSE MISC PO SCH (12:00)
--- NOTE | 2024-11-06 13:53 | NUR ---
UR CLINICAL REVIEW: [facility]- PER [facility]CG MEETS OBS FOR ATTEMPTED OVERDOSE WITH NEED FOR TELEMETRY AND AMS ODS [facility] OBS 11/05/24 @ 6071 ORDER MATCHES REG CLINICALS FAXED TO [facility] PPO PER REQUEST DISCHARGE TO HOME WHEN CLEARED BY MEDICAL AND CRISIS
--- NOTE | 2024-11-07 13:04 | EKG ---
[facility] [address] [facility] [place] [address] Signed Normal sinus rhythm Nonspecific T wave abnormality Prolonged QT Abnormal ECG When compared with ECG of 05-NOV-2024 23:26, Nonspecific T wave abnormality now evident in Anterior leads Confirmed by Xiang Ahumada MD ([id number]) on 11/07/2024 1:04:23 PM Electronically Signed By: XIANG AHUMADA MD 11/07/24 1304 PATIENT NAME: KAT BROUSSARD Electrocardiogram DATE OF : [birth year] PHYSICIAN: XIANG AHUMADA MD REPORT #: [id number] REPORT IS CONFIDENTIAL AND NOT TO BE RELEASED WITHOUT AUTHORIZATION
== END 2024-11-06 12:05 | disposition home or self-care (01) ==
LOC: ED 23:01 → MS 23:03 → CCU 23:03
PROVIDERS: Internal Medicine; ADMIT Student in an Organized Health Care Education/Training Program; ATTEND Student in an Organized Health Care Education/Training Program
DX: T42.4X2A Poisoning by benzodiazepines, intentional self-harm, initial encounter (principal); T43.592A Poisoning by other antipsychotics and neuroleptics, intentional self-harm, initial encounter; R45.851 Suicidal ideations; Z86.73 Personal history of transient ischemic attack (TIA), and cerebral infarction without residual deficits; Z88.0 Allergy status to penicillin; Z88.8 Allergy status to other drugs, medicaments and biological substances; Z79.82 Long term (current) use of aspirin
CPT/HCPCS: 36415; 51701; 80048; 80053; 80307; 81003; 83735; 84443; 84703; 85025; 93005; 93010; 96374; 99285; A9270; G0378; G0480; J3475; J7070; J7121

== ENCOUNTER 2024-12-21 18:54 | Emergency (ER) | payer OTHER ==
[~2024-12-21] VITALS: Ht 182.9 cm; Wt 86.3 kg
[~2024-12-21 18:54] MED LIST changes: +ASPIRIN81 MG PO; +CLONAZEPAM0.5 MG PO; +FLUOXETINE HCL20 MG PO; +HYDROXYZINE PAM25 MG PO
[2024-12-21] MEDS ORDERED: MORPHINE SULFATE 4 MG/ML VIAL IV ONE (19:15)
[2024-12-21] MEDS ORDERED: SODIUM CHLORIDE 0.9% 1,000 ML IV ONE (19:15)
[2024-12-21 19:38] LABS: BASOPHILS 0.4 % (0.1-1.2); EOSINOPHILS 1.4 % (0.7-5.8); LYMPHOCYTES 9.4 % (19.3-51.7); MCH 27.0 PG (25.6-32.2); MCHC 32.6 g/dL (32.2-35.5); MCV 83.0 fL (79.4-94.8); MONOCYTES 7.8 % (4.7-12.5); NEUTROPHILS 80.6 % (34.0-71.1); RBC 4.40 M/uL (3.93-5.22)
[2024-12-21 19:53] LABS: ALT (SGPT) 36.0 U/L (14-59); AST (SGOT) 51.0 U/L (15-37); GLOMERULAR FILTRATION RATE,EST 112.0 mL/min (>60); PROTEIN, TOTAL 6.8 g/dL (6.4-8.2); UREA NITROGEN 3.0 mg/dL (7-18)
[2024-12-21 20:34] LABS: BLOOD/HGB, URINE LARGE (Negative); KETONE, URINE NEGATIVE (Negative); LEUK ESTERASE, URINE LARGE (negative); NITRITE, URINE POSITIVE (negative)
[2024-12-21 20:41] LABS: BACTERIA, URINE 2+ /hpf (negative); CASTS, URINE NONE SEEN \\lpf; CRYSTALS, URINE NONE SEEN (0-1+); EPITHELIAL CELLS, URINE SQUAMOUS 1+ /lpf (0-1+); REFLEX CULTURE, URINE Yes (No)
[2024-12-21] MEDS ORDERED: HYDROCODONE BIT/ACETAMINOPHEN 5/325 MG 1 TAB HOME.PACK PO ONE (20:45)
[2024-12-21] MEDS ORDERED: ONDANSETRON 4 MG HOME.PACK SL ONE (20:45)
[2024-12-21] MEDS ORDERED: HYDROCODON-ACE1 EA10 PO (20:51)
[2024-12-21] MEDS ORDERED: ONDANSETRON ODT8 MG PO (20:51)
[2024-12-21] MEDS ORDERED: CEFDINIR300 MG PO (20:51)
[2024-12-21 21:10] VITALS: BP 140/89
== END 2024-12-21 21:13 | disposition home or self-care (01) ==
LOC: ED 18:54
PROVIDERS: Family Medicine
DX: N10 Acute pyelonephritis (principal); Z86.73 Personal history of transient ischemic attack (TIA), and cerebral infarction without residual deficits; Z87.891 Personal history of nicotine dependence; Z88.0 Allergy status to penicillin; Z88.8 Allergy status to other drugs, medicaments and biological substances; Z79.82 Long term (current) use of aspirin; Z79.899 Other long term (current) drug therapy
CPT/HCPCS: 36415; 74177; 80053; 81001; 83690; 84703; 85025; 87088; 96374; 96375; 99284-25; A9270; J0696; J2270; J2405; J7030; Q9967

== ENCOUNTER 2025-05-20 11:24 | Emergency (ER) | payer OTHER ==
[~2025-05-20] VITALS: Ht 177.8 cm; Wt 100.3 kg
[~2025-05-20 11:24] MED LIST changes: +CEFDINIR300 MG PO; +HYDROCODON-ACE1 EA10 PO; +ONDANSETRON ODT8 MG PO
[2025-05-20] MEDS ORDERED: NALTREXONE HCL50 MG PO (11:56)
[2025-05-20] MEDS ORDERED: OXCARBAZEPINE600 MG PO (11:56)
[2025-05-20] MEDS ORDERED: ARIPIPRAZOLE5 MG PO (11:57)
[2025-05-20] MEDS ORDERED: HYDROXYZINE PAM25 MG PO (11:57)
[2025-05-20] MEDS ORDERED: LIDOCAINE & ANTACID 35 ML BTL PO ONE (12:00)
[2025-05-20] MEDS ORDERED: FAMOTIDINE 20 MG/ 2 ML VIAL IV ONE (12:00)
[2025-05-20 12:16] LABS: BASOPHILS 0.6 % (0.1-1.2); EOSINOPHILS 1.1 % (0.7-5.8); LYMPHOCYTES 16.2 % (19.3-51.7); MCH 28.6 PG (25.6-32.2); MCHC 33.0 g/dL (32.2-35.5); MCV 86.5 fL (79.4-94.8); MONOCYTES 7.3 % (4.7-12.5); NEUTROPHILS 74.5 % (34.0-71.1); RBC 4.90 M/uL (3.93-5.22)
[2025-05-20 12:29] LABS: ALT (SGPT) 32.0 U/L (14-59); AST (SGOT) 23.0 U/L (15-37); GLOMERULAR FILTRATION RATE,EST 106.0 mL/min (>60); PROTEIN, TOTAL 8.6 g/dL (6.4-8.2); UREA NITROGEN 9.0 mg/dL (7-18)
[2025-05-20 13:28] LABS: BLOOD/HGB, URINE NEGATIVE (Negative); KETONE, URINE NEGATIVE (Negative); LEUK ESTERASE, URINE NEGATIVE (negative); NITRITE, URINE NEGATIVE (negative)
[2025-05-20 13:51] LABS: BACTERIA, URINE NONE SEEN /hpf (negative); CASTS, URINE NONE SEEN \\lpf; CRYSTALS, URINE NONE SEEN (0-1+); EPITHELIAL CELLS, URINE TRANSITIONAL 1+ /lpf (0-1+)
[2025-05-20 13:52] LABS: REFLEX CULTURE, URINE No (No)
[2025-05-20] MEDS ORDERED: OMEPRAZOLE20 MG PO (14:53)
[2025-05-20] MEDS ORDERED: PEPCID20 MG PO (14:53)
[2025-05-20 15:04] VITALS: BP 117/77
== END 2025-05-20 15:04 | disposition home or self-care (01) ==
LOC: ED 11:24
PROVIDERS: Emergency Medicine
DX: R10.10 Upper abdominal pain, unspecified (principal); Z87.891 Personal history of nicotine dependence; Z88.0 Allergy status to penicillin; Z88.8 Allergy status to other drugs, medicaments and biological substances; Z79.82 Long term (current) use of aspirin; K21.9 Gastro-esophageal reflux disease without esophagitis; Z59.89 Other problems related to housing and economic circumstances
CPT/HCPCS: 36415; 76705; 80053; 81001; 83690; 85025; 96374; 96375; 99284-25; J2405